=== PATIENT | female | born 1960 | race Caucasian/White ===

== ENCOUNTER → 2019-02-25 08:56 | Outpatient (BNVA) | payer MEDICARE, MEDICAID, SELFPAY | PROVIDERS: Family Provider Family Medicine; PCP Family Medicine; Visit Provider Psychiatry & Neurology Psychiatry | DX: F33.1 Major depressive disorder, recurrent, moderate (principal); F43.12 Post-traumatic stress disorder, chronic | CPT/HCPCS: 99204 ==

== ENCOUNTER → 2019-03-06 13:18 | Outpatient (BNVA) | payer MEDICARE, MEDICAID, SELFPAY | PROVIDERS: Family Provider Family Medicine; PCP Family Medicine; Visit Provider Anesthesiology | DX: M54.5 Low back pain (principal); Z79.891 Long term (current) use of opiate analgesic | CPT/HCPCS: 99213; 99214 ==

== ENCOUNTER → 2019-03-14 14:50 | Outpatient (BNVA) | payer MEDICARE, MEDICAID, SELFPAY | PROVIDERS: Family Provider Family Medicine; PCP Family Medicine; Visit Provider Social Worker Clinical | DX: F33.2 Major depressive disorder, recurrent severe without psychotic features (principal); F41.1 Generalized anxiety disorder | CPT/HCPCS: 90834 ==

== ENCOUNTER 2019-04-01 13:36 | Outpatient (CLI) | payer MEDICARE, MEDICAID, SELFPAY ==
--- NOTE | 2019-04-01 | US_ITS ---
WS: [id number] URINARY BLADDER ULTRASOUND HISTORY: URINARY HESITANCY COMPARISON: None available. Urinary bladder is well distended. No intraluminal filling defect. No free fluid adjacent to the urin lamont bladder. Prevoid volume: 80 cubic centimeters. Post void volume: None. US/US pelvic limited 68044 IMPRESSION: No post void residual.
== END 2019-04-01 13:37 | disposition home or self-care (01) ==
LOC: RADOUTREAD 13:40
PROVIDERS: Family Provider Family Medicine; PCP Family Medicine; Visit Provider Family Medicine
DX: F33.2 Major depressive disorder, recurrent severe without psychotic features; F41.1 Generalized anxiety disorder
CPT/HCPCS: 90834

== ENCOUNTER → 2019-04-08 16:00 | Outpatient (BNVA) | payer MEDICARE, MEDICAID, SELFPAY | PROVIDERS: Family Provider Family Medicine; PCP Family Medicine; Referring Provider Family Medicine; Visit Provider Obstetrics & Gynecology Female Pelvic Medicine and Reconstructive Surgery | DX: R35.0 Frequency of micturition (principal); N39.0 Urinary tract infection, site not specified; R39.9 Unspecified symptoms and signs involving the genitourinary system | CPT/HCPCS: 87086 ==

== ENCOUNTER → 2019-04-17 12:39 | Outpatient (BNVA) | payer MEDICARE, MEDICAID, SELFPAY | PROVIDERS: Family Provider Family Medicine; PCP Family Medicine; Visit Provider Nurse Practitioner | DX: M54.9 Dorsalgia, unspecified (principal); Z79.891 Long term (current) use of opiate analgesic | CPT/HCPCS: 99213 ==

== ENCOUNTER → 2019-04-24 14:49 | Outpatient (BNVA) | payer MEDICARE, MEDICAID, SELFPAY | PROVIDERS: Family Provider Family Medicine; PCP Family Medicine; Visit Provider Social Worker Clinical | DX: F43.12 Post-traumatic stress disorder, chronic (principal); F33.1 Major depressive disorder, recurrent, moderate | CPT/HCPCS: 90834 ==

== ENCOUNTER → 2019-05-28 10:34 | Outpatient (BNVA) | payer MEDICARE, MEDICAID, SELFPAY | PROVIDERS: Family Provider Family Medicine; PCP Family Medicine; Visit Provider Obstetrics & Gynecology Female Pelvic Medicine and Reconstructive Surgery | DX: N39.41 Urge incontinence (principal) | CPT/HCPCS: 81000 ==

== ENCOUNTER 2019-06-26 14:10 | Emergency (ER) | payer MEDICARE, MEDICAID, SELFPAY ==
[2019-06-26 14:16] VITALS: BMI 37.4
--- NOTE | 2019-06-26 14:26 | ECG_ITS ---
Measurements Intervals [place] Rate: 59 P: 51 CT: 176 QRS: -43 QRSD: 110 T: 39 QT: 412 QTc: 408 SINUS BRADYCARDIA LEFT AXIS DEVIATION [QRS AXIS < -30] LOW QRS VOLTAGE IN PRECORDIAL LEADS [QRS DEFLECTION < 1.0 mV IN CHEST LEADS] PATTERN CONSISTENT WITH PULMONARY DISEASE Compared to ECG 10/24/2017 13:34:30 Myocardial infarct finding no longer present Electronically Signed On 06-26-2019 15:44:07 CDT by Ashok Jiménez M.D. [email or web address]
--- NOTE | 2019-06-26 14:43 | ED_ITS ---
HPI - Seizure General: Chief Complaint: Seizure Stated Complaint: SEIZURE Time Seen by Provider: 06/26/19 14:15 History of Present Illness: HPI Narrative: Patient is a 58-year-old female presenting today with a seizure. She has a history of seizure disorder but does not think she has had a seizure in about a year. She takes Keppra 1500 mg twice a day and lamotrigine 75 mg twice a day. She has been on those doses for some time. Today she reported feeling lightheaded and having a bad taste in her mouth and laid down on the couch. She woke up to her daughter and EMS around her. Her grandson witnessed a seizure. EMS reports that she was postictal at the scene. On arrival to the ER she is back to normal. She reports that she feels worse after the seizure than she normally does. She has a headache that is worse than normal. She also has been having headaches over the past few days. She was started on a new medicine for her bladder a few weeks ago and said it is been causing her to have a very dry mouth. She also had some stomach cramping earlier today but thinks that was related to her bladder issues. MD complaint: seizure Onset (ago): unknown (Just prior to arrival) Description of Episode: tonic-clonic movement, bladder incontinence and post- event confusion Witnessed: Yes - by Other (Grandson) Trauma: No Seizure History: Yes Place: Home Possible Precipitating Event: none and medication (History of a new medication) Associated symptoms: Reports other (Headache, itching); Deny chest pain, chills, fever(s) or malaise Review of Systems General: Reports: 10 or more systems reviewed and unremarkable except in HPI and below Const: Denies: fever(s), chills, fatigue or malaise Eyes: Denies: change in vision ENMT: Reports: dry mouth; Denies: odynophagia Card: Denies: chest pain or swelling of feet/ankles Resp: Denies: dyspnea, productive cough or non-productive cough GI: Denies: abdominal pain, nausea or vomiting : Reports: urinary frequency and urinary urgency; Denies: flank pain or difficulty voiding Musc: Denies: neck pain or back pain Skin/Breast: Denies: rash Neuro: Reports: headache(s) and seizure-like activity; Denies: numbness in extremities or weakness in extremities Saurabh/Lymph: Denies: easy bruising or easy bleeding PENDING SALE TO [facility] ED PFSH: Medical History (Updated 06/26/19 @ 17:24 by Luciana Magaña MD) Anemia Back Pain Congestive heart failure Cystitis Treat with Augmentin 875 mg twice daily for 10 days she did have a previous E. coli UTI which was treated with Bactrim unfortunately organism was resistant to Bactrim. Discussed with patient first and is to return make sure bladder is clear of infection may then need to consider urodynamics and cystoscopy to further evaluate her bladder. Meantime she will maintain a bladder diary and document her frequency urgency to be interesting to see if it is better with treatment of her cystitis. Dyslipidemia Encounter for long-term use of opiate analgesic FH: cholecystectomy Laceration of both fallopian tubes Morbid obesity Nonischemic cardiomyopathy Opioid contract exists Seizures Sleep apnea Surgical History History of colon resection Status post partial hysterectomy GUY with USO Dr. Husain 2003 Status post small bowel resection Family History Mother Cancer Colon cancer Grandmother Cancer Breast Other CAD (coronary artery disease) Diabetes Social History Smoking and tobacco status: never smoked Second hand smoke exposure: Yes Smoking risk assessment/counseling performed?: No Alcohol intake: current Alcohol intake frequency: holidays/special occasions only History of recent travel: No Physical Exam Const: COMMON NORMALS: no acute distress, patient oriented x3, no limitations and alert GENERAL APPEARANCE: cooperative and comfortable NUTRITIONAL APPEARANCE: obese HENMT: HEAD & SCALP: normal to inspection FACE & SINUS: normal facial exam Eye: GENERAL EYE: appearance normal, both eyes and all related structures Neck/C-Spine: COMMON NORMALS: supple, no meningeal signs and no JVD Chest: COMMONS NORMALS: normal inspection of the chest Resp: COMMON NORMALS: normal respiratory effort, No use of accessory muscles and clear to auscultation bilaterally AUSCULTATION: clear to auscultation bilaterally Cardio: COMMON NORMALS: no JVD, regular rate, regular rhythm and No murmurs present (Cardio) RATE: regular rate RHYTHM: regular rhythm GI: COMMON NORMALS: Normal to inspection, nondistended, normoactive bowel sounds present, Soft to palpation and non-tender INSPECTION: Yes normal to inspection AUSCULTATION: Yes normoactive bowel sounds PALPATION: Yes Soft to palpation Back/Pelvis: COMMON NORMALS: thoracic and lumbar spine normal to inspection Extremity: COMMON NORMALS: normal to inspection Neuro: COMMON NORMALS: patient oriented x3, moves all extremities, no focal motor deficits and no sensory deficits noted SENSORIUM/ORIENTATION: Yes alert MENINGEAL SIGNS: Yes no meningeal signs Psych: COMMON NORMALS: mental status grossly normal, cooperative and normal affect Skin: COMMON NORMALS: no rashes or lesions noted and turgor normal GENERAL SKIN EXAM: no rashes or lesions noted and turgor normal Course ED course: Patient presents with a seizure. She has a history of seizures and has been stable on her current medications for some time. She says she is compliant. She said she felt a little worse after the seizure but otherwise there was nothing atypical about the episode. She was recently started on fe soterodine, for bladder issues and as far as I can tell this is not a usual concern for seizures or interaction with seizure medications. I did suggest however that she make sure her neurologist knows that she was started on this - just because of the temporal relation to when it was started. When she was feeling better and her work-up was benign she was discharged home with family. She will call her neurologist in the morning to discuss today's episode. Vital Signs: Vital signs: Vital Signs Pulse Rate 60 06/26/19 17:26 Respiratory Rate 18 06/26/19 17:26 Blood Pressure 103/56 06/26/19 17:26 Pulse Oximetry 96 06/26/19 17:26 MDM - Seizure Lab Data: Labs: Lab Results 06/26/19 06/26/19 06/26/19 Range/Units 14:45 14:45 15:04 WBC 6.1 (4.0-10.0) 10^3/ uL RBC 4.59 (4.1-5.3) 10^6/u L Hgb 13.3 (11.5-15.3) g/dL Hct 43.2 (37.0-47.0) % MCV 94.1 (81-99) fL MCH 29.0 (28.0-34.0) pg MCHC 30.8 (30.0-36.0) g/dL RDW 13.0 (12.1-15.1) % Plt Count 277 (130-400) 10^3/c mm MPV 9.5 (7.4-10.4) fL Neut % (Auto) 66.3 % Lymph % (Auto) 22.7 % Sac % (Auto) 8.4 % Eos % (Auto) 2.0 % Baso % (Auto) 0.3 % Neut # (Auto) 4.0 (1.8-7.7) 10^3/u L Lymph # (Auto) 1.4 (0.8-4.8) 10^3/u L Sac # (Auto) 0.5 (0.2-0.9) 10^3/u L Eos # (Auto) 0.1 (0.0-0.8) 10^3/u L Baso # (Auto) 0.0 (0.0-0.1) 10^3/u L Nucleated RBC % (a uto) 0 % Nucleated RBCs # 0.0 /100WBC Sodium 138 (136-145) mmol/L Potassium 4.0 (3.5-5.1) mmol/L Chloride 102 (98-107) mmol/L Carbon Dioxide 25 (22-29) mmol/L Anion Gap 15.0 (5-19) BUN 12 (6-20) mg/dL Creatinine 0.7 (0.5-0.9) mg/dL GFR Calculation 86.2 L (90-130) mL/min Glucose 102 (65-115) mg/dL Calculated Osmolal ity 282 L (285-295) mOsm/k g Calcium 8.8 (8.5-10.5) mg/dL Total Bilirubin 0.3 (0.15-1.2) mg/dL AST 17 (0-32) U/L ALT < 5 (0-33) U/L Alkaline Phosphata se 132 H (35-105) IU/L Total Protein 7.2 (6.6-8.7) g/dL Albumin 4.5 (3.5-5.2) g/dL Globulin 2.7 (1.3-4.6) g/dL Urine Color Yellow (Yellow) Urine Appearance Clear (CLEAR) Urine pH 5 (5-7) Ur Specific Gravit y 1.015 (1.005-1.030) Urine Protein Neg (Negative) Urine Glucose (UA) Norm (Normal) Urine Ketones Negative (Negative) Urine Blood Neg (Negative) Urine Nitrate Negative (Negative) Urine Bilirubin Neg (NEGATIVE) Urine Urobilinogen Norm (Negative) mg/dL Ur Leukocyte Gemma ase Negative (Negative) EKG Data^: EKG 1: EKG interpretation date: 06/26/19 EKG interpretation time: 15:00 Interpretation: Sinus bradycardia, rate 59, LAD. Wide QRS, 110. Normal QTc. Discharge Plan Discharge Patient Disposition: Home, Self-Care Clinical Impression: Generalized seizure Condition: Stable Prescriptions: No Action tizanidine 4 mg tablet 4 mg PO TID PRN (Reason: muscle spasticity) Qty: 90 RF: 1 gabapentin 800 mg tablet 800 mg PO QID 30 Days Qty: 120 RF: 1 hydrocodone-acetaminophen 5-325 mg tablet 1 tab PO Q6H PRN (Reason: Pain) RF: 0 Toviaz 8 mg tablet extended release 24 hr 8 mg PO DAILY Qty: 30 RF: 3 ondansetron HCl 4 mg tablet 4 mg PO Q8H RF: 0 levetiracetam 750 mg tablet 1,500 mg PO BID RF: 0 lamotrigine 25 mg tablet 75 mg PO BID RF: 0 levothyroxine 100 mcg capsule 100 mcg PO QDAY RF: 0 loperamide 2 mg capsule 2 mg PO Q4H PRN (Reason: loose stool) RF: 0 (DME) ducosate sodium tablet Qty: 1 RF: 0 oxymetazoline 0.05 % mist 1 spray INTRANASAL QID PRN (Reason: UNKNOWN) RF: 0 aspirin [Vicki Chewable Aspirin] 81 mg tablet,chewable 81 mg PO BID RF: 0 carvedilol 12.5 mg tablet 12.5 mg PO BID 90 Days Qty: 180 RF: 3 spironolactone 25 mg tablet 25 mg PO DAILY RF: 0 omeprazole 20 mg capsule,delayed release(DR/EC) 20 mg PO DAILY RF: 0 lisinopril 5 mg tablet 5 mg PO DAILY RF: 0 Benadryl 25 mg Capsule 25 mg PO Q6H PRN (Reason: Itching) RF: 0 Discharge Orders: Discharge Order (Routine); Ordered 06/26/19 Ordered By: Luciana Magaña Referrals: Patrice Juan MD [Primary Care Provider] - Discharge Diet: Usual diet Discharge Activity: Resume usual activity Patient Instructions: Recurrent Seizures Adult (ED) Activity Restrictions/Additional Instructions: Contact Dr. Ellison and let him know that you had a seizure today. Return to the ED if you have another seizure within the next week, or if any other new or concerning symptoms. Continue your regular medications. Discharge Date/Time: 06/26/19 17:37 Coding Level of Care Code ED Photogrammetric Technician for Chg Fwd Exam Comprehensive
[2019-06-26 14:51] LABS: Basophils % 0.3 %; Eosinophils # 0.1 10^3/uL (0.0-0.8); Hematocrit 43.2 % (37.0-47.0); Hemoglobin 13.3 g/dL (11.5-15.3); Lymphocytes # 1.4 10^3/uL (0.8-4.8); Lymphocytes % 22.7 %; Mean Corpuscular HGB Conc 30.8 g/dL (30.0-36.0); Mean Corpuscular Volume 94.1 fL (81-99); Mean Platelet Volume 9.5 fL (7.4-10.4); Monocytes # 0.5 10^3/uL (0.2-0.9); Monocytes % 8.4 %; Neutrophils % 66.3 %; Nucleated Red Blood Cells % 0 %; Platelet Count 277 10^3/cmm (130-400); Red Blood Count 4.59 10^6/uL (4.1-5.3); White Blood Count 6.1 10^3/uL (4.0-10.0)
[2019-06-26 15:05] LABS: Alanine Aminotransferase < 5 U/L (0-33); Albumin Level 4.5 g/dL (3.5-5.2); Alkaline Phosphatase 132 IU/L (35-105); Aspartate Amino Transferase 17 U/L (0-32); Blood Urea Nitrogen 12 mg/dL (6-20); Calcium 8.8 mg/dL (8.5-10.5); Carbon Dioxide 25 mmol/L (22-29); Chloride 102 mmol/L (98-107); Globulin 2.7 g/dL (1.3-4.6); Glomerular Filtration Rate 86.2 mL/min (90-130); Glucose 102 mg/dL (65-115); Osmolality Calculated 282 mOsm/kg (285-295); Sodium 138 mmol/L (136-145); Total Bilirubin 0.3 mg/dL (0.15-1.2); Total Protein 7.2 g/dL (6.6-8.7)
[2019-06-26 15:22] LABS: Add Urine Microscopic? NO
[2019-06-26 15:28] LABS: Bilirubin Urine Neg (NEGATIVE); Blood Urine Neg (Negative); Glucose Urine UA Norm (Normal); Ketones Urine Negative (Negative); Leukocyte Esterase Urine Negative (Negative); Nitrate Urine Negative (Negative); Protein Urine Neg (Negative); Specific Gravity, Urine 1.015 (1.005-1.030); Urine Appearance Clear (CLEAR); Urine Color Yellow (Yellow); Urobilinogen Urine Norm (Negative); pH Urine 5 (5-7)
[2019-06-26] MEDS: ondansetron 2 mg/ML SDV 2 mL 4 MG IVP (15:36)
[2019-06-26 17:26] VITALS: BP 103/56; PULSE 60; RESP 18; O2SAT 96
== END 2019-06-26 17:37 | disposition home or self-care (01) ==
PROVIDERS: Emergency Provider Emergency Medicine; Family Provider Family Medicine; PCP Family Medicine
DX: G40.89 Other seizures (principal); I50.9 Heart failure, unspecified; E78.5 Hyperlipidemia, unspecified
CPT/HCPCS: 12345; 36415; 80053; 81003; 85025; 93005; 96374; 96375; 99284; A9270; J2405

== ENCOUNTER 2019-07-02 14:57 | Outpatient (RCR) | payer MEDICARE, MEDICAID, SELFPAY | END 2019-07-07 23:59 | disposition home or self-care (01) | LOC: SPT 14:57 | PROVIDERS: PCP Family Medicine; Visit Provider Obstetrics & Gynecology Female Pelvic Medicine and Reconstructive Surgery | DX: N39.46 Mixed incontinence (principal); K59.00 Constipation, unspecified | CPT/HCPCS: 97110; 97161; 97530 ==

== ENCOUNTER 2019-07-08 06:00 | Outpatient (RCR) | payer MEDICARE, MEDICAID, SELFPAY | END 2019-08-06 23:59 | disposition home or self-care (01) | LOC: SPT 06:00 | PROVIDERS: PCP Family Medicine; Visit Provider Obstetrics & Gynecology Female Pelvic Medicine and Reconstructive Surgery | DX: N39.41 Urge incontinence (principal) | CPT/HCPCS: 97110; 97112; 97140; 97530 ==

== ENCOUNTER 2019-08-07 06:00 | Outpatient (RCR) | payer MEDICARE, MEDICAID, SELFPAY | END 2019-09-06 23:59 | disposition home or self-care (01) | LOC: SPT 06:00 | PROVIDERS: PCP Family Medicine; Visit Provider Obstetrics & Gynecology Female Pelvic Medicine and Reconstructive Surgery | DX: N39.41 Urge incontinence (principal) | CPT/HCPCS: 97110; 97140; 97530 ==

== ENCOUNTER → 2019-08-22 13:40 | Outpatient (BNVA) | payer MEDICARE, MEDICAID, SELFPAY | PROVIDERS: PCP Family Medicine; Visit Provider Anesthesiology | DX: M54.41 Lumbago with sciatica, right side (principal); M54.42 Lumbago with sciatica, left side; M54.9 Dorsalgia, unspecified; Z79.891 Long term (current) use of opiate analgesic | CPT/HCPCS: 99213; 99214 ==

== ENCOUNTER 2019-09-07 06:00 | Outpatient (RCR) | payer MEDICARE, MEDICAID, SELFPAY | END 2019-10-07 23:59 | disposition home or self-care (01) | LOC: SPT 06:00 | PROVIDERS: PCP Family Medicine; Visit Provider Obstetrics & Gynecology Female Pelvic Medicine and Reconstructive Surgery | DX: N39.41 Urge incontinence (principal) | CPT/HCPCS: 97110; 97530 ==

== ENCOUNTER 2019-10-11 14:14 | Outpatient (CLI) | payer MEDICARE, MEDICAID, SELFPAY ==
--- NOTE | 2019-10-11 14:21 | USCV_ITS ---
Peggy Tejada Age: 58 Gender: F : 1960 Exam Date: 10/11/2019 14:31 Ordering Phys: Jeronimo oMreira M.D ([email or web address]) Technologist: Romelia Cote Exam Location: [facility] [place] [facility] [place] Indication: CHF BP: 107 / 65 HR: 67 Rhythm: Sinus Technical Quality: Adequate MEASUREMENTS (Male / Female) Normal Values 2D ECHO LV Diastolic Diameter PLAX 5.0 cm 4.2 - 5.9 / 3.9 - 5.3 cm LV Systolic Diameter PLAX 4.1 cm LV Chamber Size 3.6 cm IVS Diastolic Thickness 0.8 cm 0.6 - 1.0 / 0.6 - 0.9 cm IVS Systolic Thickness 1.3 cm LVPW Diastolic Thickness 1.5 cm 0.6 - 1.0 / 0.6 - 0.9 cm LVPW Systolic Thickness 1.6 cm RV Chamber Size 2.9 cm LVOT Diameter 2.1 cm LV Ejection Fraction 2D Teich 35.0 % LV Ejection Fraction MOD 2C 67.4 % LV Ejection Fraction 2C AL 68.7 % LA Diameter 4.0 cm LA Width 3.3 cm LA Height 4.4 cm RA Width 2.7 cm RA Height 4.0 cm Aorta at Sinotubular Diameter 3.0 cm M-MODE LV Diastolic Diameter MM 6.7 cm 4.2 - 5.9 / 3.9 - 5.3 cm LV Systolic Diameter MM 5.1 cm LV Ejection Fraction MM Teich 45.9 % IVS Diastolic Thickness MM 0.9 cm 0.6 - 1.0 / 0.6 - 0.9 cm IVS Systolic Thickness MM 0.9 cm LVPW Diastolic Thickness MM 0.7 cm 0.6 - 1.0 / 0.6 - 0.9 cm LVPW Systolic Thickness MM 1.3 cm Aortic Annulus Diameter 3.1 cm LA Ao Ratio MM 1.3 MV E Point Septal Separation 0.8 cm DOPPLER AV Peak Velocity 131.0 cm/s LVOT Peak Velocity 98.0 cm/s AV Area Cont Eq vti 3.1 cm squared AV Area Cont Eq pk 2.6 cm squared MV Area PHT 2.7 cm squared Mitral E to A Ratio 0.6 MV E' Velocity 10.0 cm/s Mitral E to MV E' Ratio 5.7 Mitral E to LV E' Lateral Ratio 5.5 Mitral E to LV E' Septal Ratio 6.0 TR Peak Velocity 282.0 cm/s TR Peak Gradient 31.9 mmHg TV Peak E Velocity 70.0 cm/s Right Atrial Pressure 3.0 mmHg Pulmonary Artery Systolic Pressu 34.8 mmHg PV Peak Velocity 64.0 cm/s RV Acceleration Time 0.1 s RV Ejection Time 0.3 s RV AcT/ET 0.4 FINDINGS Left Ventricle Normal left ventricular size and wall thickness. LV systolic function is mildly reduced and EF is 45 to 50%. Mild global hypokinesis. Normal left ventricular wall thickness. Diastolic filling is consistent with grade 3 diastolic dysfunction. Right Ventricle The right ventricle is normal in size and function. Right Atrium The right atrium is normal in size. Left Atrium The left atrium is normal in size. Mitral Valve Structurally normal mitral valve without significant stenosis or prolapse. There is mild mitral regurgitation. Aortic Valve Structurally normal aortic valve without significant sclerosis or stenosis. There is no aortic regurgitation. Tricuspid Valve Structurally normal tricuspid valve without significant stenosis or regurgitation. Insufficient TR jet to calculate RVSP. Systolic pressure is normal. Pulmonic Valve Structurally normal pulmonic valve without significant stenosis. There is no pulmonic regurgitation. Pericardium Normal pericardium without effusion. Aorta Normal ascending aorta dimension. CONCLUSIONS LV systolic function is mildly reduced with EF of 45 to 50%. Diastolic filling is consistent with grade 3 diastolic dysfunction. Compared with echo done on 10/01/2018, diastolic dysfunction has progressed to grade 3. Jeronimo Moreira MD (Electronically Signed) Final Date: 18 October 2019 13:53 S
== END 2019-10-11 14:15 | disposition home or self-care (01) ==
LOC: RAD 14:18
PROVIDERS: PCP Family Medicine; Visit Provider Internal Medicine
DX: I50.9 Heart failure, unspecified (principal)
CPT/HCPCS: 93306

== ENCOUNTER 2019-10-14 14:16 | Emergency (ER) | payer MEDICARE, MEDICAID, SELFPAY ==
[2019-10-14 14:24] VITALS: BP 94/62; PULSE 78; RESP 18; TEMP 36.8; O2SAT 94; BMI 35.2
--- NOTE | 2019-10-14 15:38 | ED_ITS ---
HPI - GI Bleed General: Chief complaint: GI Bleed Stated complaint: cant hold anything down/ abd cramps/ diharea Time Seen by Provider: 10/14/19 15:23 Source: patient Mode of arrival: ambulatory Limitations: no limitations History of Present Illness: HPI Narrative: Has been feeling unwell for about a week with malaise, upper abdominal pain, nausea, vomiting. She is also having diarrhea and her stools are described as black and tarry. She has a history of GERD, hypothyroidism, hypertension, chronic back pain. Symptoms have progressively worsened and she is unable to keep anything down for the last 3 days or so according to her. She denies any fever or sick contacts. MD complaint: melena Onset (ago): week(s) (1) Pain Consistency: intermittent Severity: moderate Relieving factors: none Exacerbating factors: none Context: history of GI bleed Associated symptoms: Reports abdominal pain, malaise, nausea and vomiting; Denies chills, easy bruising, epistaxis, fever(s), headache(s), other bleeding, poor appetite, rash, syncope or weakness Treatments Prior to Arrival: none Review of Systems General: Reports: 10 or more systems reviewed and unremarkable except in HPI and below Const: Reports: malaise; Denies: fever(s) or chills Eyes: Denies: change in vision or blurry vision ENMT: Denies: epistaxis Card: Denies: syncope Resp: Denies: dyspnea, productive cough or non-productive cough GI: Reports: abdominal pain, nausea and vomiting : Denies: flank pain, difficulty voiding, dysuria, urinary frequency, urinary urgency or urinary hesitancy Musc: Denies: neck pain, back pain or extremity swelling Skin/Breast: Denies: rash Neuro: Denies: headache(s) Endo: Denies: polyuria, polydipsia or tired all the time Saurabh/Lymph: Denies: easy bruising PFSH ED PFSH: Medical History Anemia Back Pain Congestive heart failure Cystitis Treat with Augmentin 875 mg twice daily for 10 days she did have a previous E. coli UTI which was treated with Bactrim unfortunately organism was resistant to Bactrim. Discussed with patient first and is to return make sure bladder is clear of infection may then need to consider urodynamics and cystoscopy to further evaluate her bladder. Meantime she will maintain a bladder diary and document her frequency urgency to be interesting to see if it is better with treatment of her cystitis. Dyslipidemia Encounter for long-term use of opiate analgesic FH: cholecystectomy Laceration of both fallopian tubes Morbid obesity Nonischemic cardiomyopathy Opioid contract exists Seizures Sleep apnea Surgical History History of colon resection Status post partial hysterectomy GUY with USO Dr. Husain 2003 Status post small bowel resection Family History Mother Cancer Colon cancer Grandmother Cancer Breast Other CAD (coronary artery disease) Diabetes Social History Smoking and tobacco status: never smoked Second hand smoke exposure: Yes Smoking risk assessment/counseling performed?: No Alcohol intake: current Alcohol intake frequency: holidays/special occasions only History of recent travel: No Physical Exam Const: COMMON NORMALS: no acute distress, average body habitus, patient oriented x3, no limitations, healthy appearing, alert and well nourished HENMT: COMMON NORMALS: normocephalic, atraumatic and moist oral mucous membranes HEAD & SCALP: normocephalic and atraumatic Neck/C-Spine: COMMON NORMALS: no meningeal signs and no JVD Resp: COMMON NORMALS: normal respiratory effort, No retractions, No use of accessory muscles, clear to auscultation bilaterally and percussion normal AUSCULTATION: clear to auscultation bilaterally PERCUSSION: percussion normal Cardio: COMMON NORMALS: no JVD, regular rate, regular rhythm, S1 normal heart sound present, S2 normal heart sound present, No gallops present (Cardio), No clicks present (Cardio), No murmurs present (Cardio), No rub (Cardio) and Peripheral pulses 2+ throughout RATE: regular rate RHYTHM: regular rhythm HEART SOUNDS: S1 normal heart sound present and S2 normal heart sound present PERIPHERAL PULSES: Peripheral pulses 2+ throughout GI: COMMON NORMALS: Normal to inspection, nondistended, normoactive bowel sounds present, Soft to palpation, No hepatosplenomegaly present, no masses and no bruits PALPATION: Yes Soft to palpation, Yes Tenderness to palpation present (GI) (epigastric) and Yes No hepatosplenomegaly present Extremity: COMMON NORMALS: normal to inspection, full ROM, capillary refill normal, no calf tenderness and no pedal edema Neuro: COMMON NORMALS: patient oriented x3 SENSORIUM/ORIENTATION: Yes alert MENINGEAL SIGNS: Yes no meningeal signs Skin: COMMON NORMALS: no rashes or lesions noted, no wounds, turgor normal, no jaundice, no petechiae and no mottling GENERAL SKIN EXAM: no rashes or lesions noted and turgor normal Course Reevaluation(s): Reevaluation #1: Discussed her lab and imaging findings with her. Hemoglobin normal, other labs unremarkable. Patient has been having significant GI bleed for several days I expect her hemoglobin to be low. BUN normal. We will discharge her home but she is advised she needs a repeat colonoscopy for further evaluation. She voiced understanding and is in agreement with the plan. Time: 18:59 Vital Signs: Vital signs: Vital Signs Temperature 98.2 F 10/14/19 14:24 Pulse Rate 96 10/14/19 19:24 Respiratory Rate 18 10/14/19 19:24 Blood Pressure 112/54 10/14/19 19:24 Pulse Oximetry 95 10/14/19 19:24 MDM - GI Bleed MDM Narrative: Medical decision making narrative: 58-year-old female patient complains of having melena stools for several days. Evaluation in the emergency department was unremarkable including a normal hemoglobin. No signs of an acute or life-threatening condition on evaluation and she is discharged home to follow-up with her primary care provider to set her up for a colonoscopy. She has had a bowel resection in the past for a gastric precancerous polyp. She does have a family history of colon cancer. Medical Records: Attestation: I reviewed the patient's medical records. Lab Data: Attestation: I reviewed the patient's lab results. Labs: Lab Results 10/14/19 10/14/19 10/14/19 Range/Units 15:40 15:40 15:40 WBC 8.7 (4.0-10.0) 10^3/ uL RBC 4.58 (4.1-5.3) 10^6/u L Hgb 13.9 (11.5-15.3) g/dL Hct 44.0 (37.0-47.0) % MCV 96.1 (81-99) fL MCH 30.3 (28.0-34.0) pg MCHC 31.6 (30.0-36.0) g/dL RDW 13.4 (12.1-15.1) % Plt Count 260 (130-400) 10^3/c mm MPV 9.7 (7.4-10.4) fL Neut % (Auto) 88.1 % Lymph % (Auto) 6.4 % Pierce % (Auto) 5.0 % Eos % (Auto) 0.0 % Baso % (Auto) 0.2 % Neut # (Auto) 7.68 (1.8-7.7) 10^3/u L Lymph # (Auto) 0.6 L (0.8-4.8) 10^3/u L Pierce # (Auto) 0.4 (0.2-0.9) 10^3/u L Eos # (Auto) 0.0 (0.0-0.8) 10^3/u L Baso # (Auto) 0.0 (0.0-0.1) 10^3/u L Nucleated RBC % (a uto) 0 % Nucleated RBCs # 0.0 /100WBC PT 13.30 (12.1-14.9) SECO NDS INR 0.98 (0.8-1.2) APTT 27.5 (23.9-36.7) SECO NDS Sodium 134 L (136-145) mmol/L Potassium 3.9 (3.5-5.1) mmol/L Chloride 97 L (98-107) mmol/L Carbon Dioxide 24 (22-29) mmol/L Anion Gap 16.9 (5-19) BUN 17 (6-20) mg/dL Creatinine 0.9 (0.5-0.9) mg/dL GFR Calculation 64.5 L (90-130) mL/min Glucose 100 (65-115) mg/dL Calculated Osmolal ity 274 L (285-295) mOsm/k g Calcium 9.0 (8.5-10.5) mg/dL Total Bilirubin 0.6 (0.15-1.2) mg/dL AST 15 (0-32) U/L ALT 11 (0-33) U/L Alkaline Phosphata se 114 H (35-105) IU/L Total Protein 8.0 (6.6-8.7) g/dL Albumin 4.6 (3.5-5.2) g/dL Globulin 3.4 (1.3-4.6) g/dL Lipase 31 (13-60) U/L Urine Color (Yellow) Urine Appearance (CLEAR) Urine pH (5-7) Ur Specific Gravit y (1.005-1.030) Urine Protein (Negative) Urine Glucose (UA) (Normal) Urine Ketones (Negative) Urine Blood (Negative) Urine Nitrate (Negative) Urine Bilirubin (NEGATIVE) Urine Urobilinogen (Negative) mg/dL Ur Leukocyte Gemma ase (Negative) Urine RBC (0-2) /hpf Urine WBC (0-5) /hpf Ur Squamous Epith Cells (0-5) Amorphous Sediment Urine Bacteria (NONE) Hyaline Casts Urine Mucus Blood Type Rho(D) Type Antibody Screen 10/14/19 10/14/19 Range/Units 15:40 15:50 WBC (4.0-10.0) 10^3/ uL RBC (4.1-5.3) 10^6/u L Hgb (11.5-15.3) g/dL Hct (37.0-47.0) % MCV (81-99) fL MCH (28.0-34.0) pg MCHC (30.0-36.0) g/dL RDW (12.1-15.1) % Plt Count (130-400) 10^3/c mm MPV (7.4-10.4) fL Neut % (Auto) % Lymph % (Auto) % Pierce % (Auto) % Eos % (Auto) % Baso % (Auto) % Neut # (Auto) (1.8-7.7) 10^3/u L Lymph # (Auto) (0.8-4.8) 10^3/u L Pierce # (Auto) (0.2-0.9) 10^3/u L Eos # (Auto) (0.0-0.8) 10^3/u L Baso # (Auto) (0.0-0.1) 10^3/u L Nucleated RBC % (a uto) % Nucleated RBCs # /100WBC PT (12.1-14.9) SECO NDS INR (0.8-1.2) APTT (23.9-36.7) SECO NDS Sodium (136-145) mmol/L Potassium (3.5-5.1) mmol/L Chloride (98-107) mmol/L Carbon Dioxide (22-29) mmol/L Anion Gap (5-19) BUN (6-20) mg/dL Creatinine (0.5-0.9) mg/dL GFR Calculation (90-130) mL/min Glucose (65-115) mg/dL Calculated Osmolal ity (285-295) mOsm/k g Calcium (8.5-10.5) mg/dL Total Bilirubin (0.15-1.2) mg/dL AST (0-32) U/L ALT (0-33) U/L Alkaline Phosphata se (35-105) IU/L Total Protein (6.6-8.7) g/dL Albumin (3.5-5.2) g/dL Globulin (1.3-4.6) g/dL Lipase (13-60) U/L Urine Color Dark yellow (Yellow) Urine Appearance Sl hazy (CLEAR) Urine pH 5 (5-7) Ur Specific Gravit y 1.025 (1.005-1.030) Urine Protein Trace (Negative) Urine Glucose (UA) Norm (Normal) Urine Ketones 1+ H (Negative) Urine Blood Neg (Negative) Urine Nitrate Negative (Negative) Urine Bilirubin 1+ H (NEGATIVE) Urine Urobilinogen 1 H (Negative) mg/dL Ur Leukocyte Gemma ase Trace H (Negative) Urine RBC 0-4 H (0-2) /hpf Urine WBC 5-10 H (0-5) /hpf Ur Squamous Epith Cells 5-10 H (0-5) Amorphous Sediment Not Reportable Urine Bacteria 2+ H (NONE) Hyaline Casts 0-4 H Urine Mucus 3+ Blood Type O Positive Rho(D) Type Positive Antibody Screen Negative Discharge Plan Discharge Patient Disposition: Home Clinical Impression: Gastroenteritis Condition: Stable Prescriptions: Continued nitroglycerin 0.4 mg tablet, sublingual 0.4 mg SUBLINGUAL Q5M PRN (Reason: Chest Pain) RF: 0 ondansetron HCl 4 mg tablet 4 mg PO PRN RF: 0 levetiracetam 750 mg tablet 1,500 mg PO BID RF: 0 levothyroxine 100 mcg capsule See Rx Instructions .ROUTE .COMPLEX RF: 0 lamotrigine 25 mg tablet 100 mg PO BID RF: 0 aspirin [Vicki Chewable Aspirin] 81 mg tablet,chewable 81 mg PO BID RF: 0 tizanidine 4 mg tablet 4 mg PO TID PRN (Reason: muscle spasticity) Qty: 90 RF: 1 hydrocodone-acetaminophen 5-325 mg tablet 1 tab PO Q6H PRN (Reason: Pain) 30 Days Qty: 120 RF: 0 carvedilol 12.5 mg tablet 12.5 mg PO BID 90 Days Qty: 180 RF: 3 gabapentin 800 mg tablet 800 mg PO QID 30 Days Qty: 120 RF: 0 spironolactone 25 mg tablet 25 mg PO DAILY RF: 0 omeprazole 20 mg capsule,delayed release(DR/EC) 40 mg PO DAILY RF: 0 lisinopril 5 mg tablet 5 mg PO DAILY RF: 0 diphenhydramine HCl [Benadryl] 25 mg Capsule 25 mg PO PRN RF: 0 levothyroxine 88 mcg tablet See Rx Instructions .ROUTE .COMPLEX RF: 0 Discharge Orders: Discharge Order (Routine); Ordered 10/14/19 Ordered By: Harriet Culver Referrals: Patrice Juan MD [Primary Care Provider] - 1-3 days Discharge Diet: Usual diet Discharge Activity: Increase activity as tolerated Patient Instructions: Gastroenteritis (ED) Activity Restrictions/Additional Instructions: Return for any new or worsening symptoms. Follow-up with your primary care provider within 3 days. You will need a colonoscopy soon so follow-up with your primary care provider to have you scheduled for one. Discharge Date/Time: 10/14/19 19:25 Coding Level of Care Code ED Program Manager Slp for Chg Fwd Exam Comprehensive
[2019-10-14 15:49] LABS: Basophils % 0.2 %; Hemoglobin 13.9 g/dL (11.5-15.3); Lymphocytes # 0.6 10^3/uL (0.8-4.8); Lymphocytes % 6.4 %; Mean Corpuscular HGB Conc 31.6 g/dL (30.0-36.0); Mean Corpuscular Hemoglobin 30.3 pg (28.0-34.0); Mean Corpuscular Volume 96.1 fL (81-99); Mean Platelet Volume 9.7 fL (7.4-10.4); Monocytes # 0.4 10^3/uL (0.2-0.9); Neutrophils # 7.68 10^3/uL (1.8-7.7); Neutrophils % 88.1 %; Nucleated Red Blood Cells % 0 %; Platelet Count 260 10^3/cmm (130-400); Red Blood Count 4.58 10^6/uL (4.1-5.3); Red Cell Distribution Width 13.4 % (12.1-15.1); White Blood Count 8.7 10^3/uL (4.0-10.0)
[2019-10-14 16:05] LABS: INR 0.98 (0.8-1.2)
[2019-10-14 16:07] LABS: Blood Urine Neg (Negative); Glucose Urine UA Norm (Normal); Ketones Urine 1+ (Negative); Protein Urine Trace (Negative); Specific Gravity, Urine 1.025 (1.005-1.030); Urine Appearance SL Hazy (CLEAR); Urine Color Dark Yellow (Yellow); pH Urine 5 (5-7)
[2019-10-14 16:07] LABS: Partial Thromboplastin Time 27.5 SECONDS (23.9-36.7)
[2019-10-14 16:08] LABS: Add Urine Microscopic? YES; Bilirubin Urine 1+ (NEGATIVE); Leukocyte Esterase Urine Trace (Negative); Nitrate Urine Negative (Negative); Urobilinogen Urine 1 mg/dL (Negative)
[2019-10-14 16:09] LABS: Bacteria Urine 2+; Mucus Urine 3+; RBC Urine 0-4 /hpf (0-2)
[2019-10-14 16:10] LABS: Add Urine Culture? No; Hyaline Casts Urine 0-4
[2019-10-14 16:12] LABS: Alanine Aminotransferase 11 U/L (0-33); Albumin Level 4.6 g/dL (3.5-5.2); Alkaline Phosphatase 114 IU/L (35-105); Anion Gap 16.9 (5-19); Aspartate Amino Transferase 15 U/L (0-32); Blood Urea Nitrogen 17 mg/dL (6-20); Carbon Dioxide 24 mmol/L (22-29); Chloride 97 mmol/L (98-107); Globulin 3.4 g/dL (1.3-4.6); Glomerular Filtration Rate 64.5 mL/min (90-130); Glucose 100 mg/dL (65-115); Lipase 31 U/L (13-60); Osmolality Calculated 274 mOsm/kg (285-295); Potassium 3.9 mmol/L (3.5-5.1); Sodium 134 mmol/L (136-145); Total Bilirubin 0.6 mg/dL (0.15-1.2)
[2019-10-14] MEDS: ondansetron 2 mg/ML SDV 2 mL 4 MG IVP (16:27)
[2019-10-14] MEDS: pantoprazole 40 mg SDV 80 MG IVP (16:27)
[2019-10-14] MEDS: lidocaine 2% viscous 15 ML, aluminum-mag hydrox-simethicon 30 ML, sucralfate oral liq 1 GM PO (17:32)
[2019-10-14] MEDS: sodium chloride 0.9% 1,000 ML 999 ML IV (17:34)
[2019-10-14 17:36] VITALS: BP 108/61; RESP 18
--- NOTE | 2019-10-14 18:00 | CTR_ITS ---
PROCEDURE INFORMATION: Exam: CT Abdomen And Pelvis Without Contrast Exam date and time: 10/14/2019 6:03 PM Age: 58 years old Clinical indication: Abdominal pain; Prior surgery; Surgery date: 6+ months; Surgery type: Hyst, gb, colon, bladder; Patient HX: C/O mid/epigastric pain x 1 week TECHNIQUE: Imaging protocol: Computed tomography of the abdomen and pelvis without contrast. Radiation optimization: All CT scans at this facility use at least one of these dose optimization techniques: automated exposure control; mA and/or kV adjustment per patient size (includes targeted exams where dose is matched to clinical indication); or iterative reconstruction. COMPARISON: CT abdomen pelvis w con* [id number] 04/14/2016 10:39 PM RADIATION DOSE METRICS: Total DLP (mGy-cm): 1462.29 FINDINGS: Liver: Fatty infiltration of the liver. Gallbladder and bile ducts: Stable cholecystectomy. Pancreas: Normal. No ductal dilation. Spleen: Normal. No splenomegaly. Adrenals: Water density 2.1 cm left adrenal nodule most consistent with benign adrenal adenoma. No followup needed. Kidneys and ureters: Normal. No hydronephrosis. Stomach and bowel: Some residual barium in the cecum and intermittently throughout the colon. Mild colonic diverticulosis. Appendix: Stable appendectomy. Intraperitoneal space: Unremarkable. No free air. No significant fluid collection. Vasculature: Calcification of the abdominal aorta and/or iliac arteries consistent with atherosclerotic vessel disease. Lymph nodes: Unremarkable. No enlarged lymph nodes. Bladder: Unremarkable as visualized. Reproductive: Stable hysterectomy. Bones/joints: Multilevel moderate to severe facet degenerative changes. Soft tissues: Unremarkable. CT/CT abdomen pelvis con [id number] IMPRESSION: 1. Fatty infiltration of the liver. 2. Water density 2.1 cm left adrenal nodule most consistent with benign adrenal adenoma. No followup needed. Radiation Dose CTDIVOL = (mGy): DLP = 1462.29 (mGy-cm)
[2019-10-14 19:24] VITALS: BP 112/54; PULSE 96; RESP 18; O2SAT 95
== END 2019-10-14 19:25 | disposition home or self-care (01) ==
PROVIDERS: Nurse Practitioner Family; Emergency Provider Family Medicine; PCP Family Medicine
DX: K52.9 Noninfective gastroenteritis and colitis, unspecified (principal); Z79.82 Long term (current) use of aspirin; I50.9 Heart failure, unspecified; E78.5 Hyperlipidemia, unspecified; Z77.22 Contact with and (suspected) exposure to environmental tobacco smoke (acute) (chronic)
CPT/HCPCS: 12345; 74176; 80053; 81001; 83690; 85025; 85610; 85730; 86850; 86900; 96361; 96374; 96375; 99283; 99284; C9113; J2405; J7030

== ENCOUNTER 2019-10-16 16:05 | Outpatient (CLI) | payer MEDICARE, MEDICAID, SELFPAY ==
[2019-10-16 16:36] LABS: Basophils % 0.3 %; Eosinophils # 0.1 10^3/uL (0.0-0.8); Eosinophils % 1.5 %; Hematocrit 43.1 % (37.0-47.0); Hemoglobin 13.7 g/dL (11.5-15.3); Lymphocytes % 25.8 %; Mean Corpuscular HGB Conc 31.8 g/dL (30.0-36.0); Mean Corpuscular Hemoglobin 30.5 pg (28.0-34.0); Mean Platelet Volume 9.8 fL (7.4-10.4); Monocytes # 0.5 10^3/uL (0.2-0.9); Neutrophils # 2.31 10^3/uL (1.8-7.7); Neutrophils % 59.1 %; Nucleated Red Blood Cells % 0 %; Platelet Count 283 10^3/cmm (130-400); Red Blood Count 4.49 10^6/uL (4.1-5.3); Red Cell Distribution Width 13.3 % (12.1-15.1); White Blood Count 3.9 10^3/uL (4.0-10.0)
[2019-10-16 17:05] LABS: Blood Urea Nitrogen 14 mg/dL (6-20); Carbon Dioxide 24 mmol/L (22-29); Chloride 103 mmol/L (98-107); Glomerular Filtration Rate 73.9 mL/min (90-130); Glucose 112 mg/dL (65-115); Osmolality Calculated 281 mOsm/kg (285-295); Sodium 137 mmol/L (136-145)
[2019-10-16 17:06] LABS: Alanine Aminotransferase 12 U/L (0-33); Albumin Level 4.3 g/dL (3.5-5.2); Alkaline Phosphatase 104 IU/L (35-105); Aspartate Amino Transferase 18 U/L (0-32); C Reactive Protein 28.4 mg/L (0.0-4.9); Calcium 8.7 mg/dL (8.5-10.5); Globulin 3.3 g/dL (1.3-4.6); Total Bilirubin 0.3 mg/dL (0.15-1.2); Total Protein 7.6 g/dL (6.6-8.7)
[2019-10-16 17:10] LABS: Anion Gap 14.3 (5-19); Potassium 4.3 mmol/L (3.5-5.1)
== END 2019-10-16 16:06 | disposition home or self-care (01) ==
LOC: LAB 16:09
PROVIDERS: PCP Family Medicine; Visit Provider Family Medicine
DX: R19.7 Diarrhea, unspecified (principal)
CPT/HCPCS: 36415; 80053; 83993; 85025; 86140; 87077; 87186; 87493; 87506

== ENCOUNTER → 2019-10-23 12:33 | Outpatient (BNVA) | payer MEDICARE, MEDICAID, SELFPAY | PROVIDERS: PCP Family Medicine; Visit Provider Nurse Practitioner | DX: M54.42 Lumbago with sciatica, left side (principal); M54.41 Lumbago with sciatica, right side; M54.9 Dorsalgia, unspecified; Z79.891 Long term (current) use of opiate analgesic | CPT/HCPCS: 99213 ==

== ENCOUNTER → 2019-11-26 13:21 | Outpatient (BNVA) | payer MEDICARE, MEDICAID, SELFPAY | PROVIDERS: PCP Family Medicine; Visit Provider Anesthesiology | DX: M54.41 Lumbago with sciatica, right side (principal); M54.42 Lumbago with sciatica, left side; M54.9 Dorsalgia, unspecified; Z79.891 Long term (current) use of opiate analgesic | CPT/HCPCS: 99212; 99214 ==

== ENCOUNTER → 2019-12-12 11:19 | Outpatient (BNVA) | payer MEDICARE, MEDICAID, SELFPAY | PROVIDERS: PCP Family Medicine; Visit Provider Internal Medicine | DX: Z11.59 Encounter for screening for other viral diseases (principal); R10.13 Epigastric pain | CPT/HCPCS: 87635 ==

== ENCOUNTER 2019-12-16 08:14 | Day surgery (SDC) | payer MEDICARE, MEDICAID, SELFPAY ==
[2019-12-12 06:51] VITALS: BMI 35.5
[2019-12-16 08:25] VITALS: BP 158/97; PULSE 64; TEMP 36.6; O2SAT 97
--- NOTE | 2019-12-16 08:53 | ANES.PREANE2 ---
Pre-Anesthetic Assessment Pre-Anesthetic Assessment: Height/Weight: Height 1.63 m Weight 93.894 kg Temp Pulse BP Pulse Ox 97.9 F 64 158/97 97 12/16/19 08:25 12/16/19 08:25 12/16/19 08:25 12/16/19 08:25 Preop Diagnosis: egs Proposed Procedure: Operation Date: 12/16/19 09:00 Proposed Procedures p EGD 94540 R10.13(Not Applicable) - Randall Byrd MD Was Beta [place] taken within 24 hours: Yes Last intake: Intake Last Liquid Date 12/15/19 Last Liquid Time 20:00 Last Solid Date 12/15/19 Last Solid Time 22:00 Social: Social History: No alcohol and No tobacco Exam: Pre-Anes Outpt Exam: alert, oriented x 3, clear to auscultation bilaterally and regular rate & rhythm Airway: Submandibular: WNL Cervical ROM: WNL MP: 2 Dentition: Partials Pulmonary: Pulmonary: None reported CV/HEM: CV/HEM: CHF and HTN : : None reported Hepatic: Hepatic: None reported GI: GI: None reported Metabolic: Metabolic: Thyroid Musc/skel: Musc/skel: None reported Neuropsych: Neuropsych: Seizure Anesthetic Plan: ASA status: 3 Anesthesia: MAC PFSH Anesthesia PFSH: Medical History (Updated 12/05/19 @ 14:19 by Randall Byrd MD) Anemia Back Pain Congestive heart failure Cystitis Treat with Augmentin 875 mg twice daily for 10 days she did have a previous E. coli UTI which was treated with Bactrim unfortunately organism was resistant to Bactrim. Discussed with patient first and is to return make sure bladder is clear of infection may then need to consider urodynamics and cystoscopy to further evaluate her bladder. Meantime she will maintain a bladder diary and document her frequency urgency to be interesting to see if it is better with treatment of her cystitis. Dyslipidemia Encounter for long-term use of opiate analgesic FH: cholecystectomy Laceration of both fallopian tubes Morbid obesity Nonischemic cardiomyopathy Opioid contract exists Seizures Sleep apnea Surgical History History of colon resection Status post partial hysterectomy GUY with USO Dr. Husain 2003 Status post small bowel resection Family History Mother Cancer Colon cancer Grandmother Cancer Breast Other CAD (coronary artery disease) Diabetes Social History Smoking and tobacco status: never smoked Second hand smoke exposure: Yes Smoking risk assessment/counseling performed?: No Alcohol intake: current Alcohol intake frequency: holidays/special occasions only History of recent travel: No Data Anesthesia Cardiac Studies: No Data to Display
--- NOTE | 2019-12-16 09:06 | W.PM.OPSUD ---
Surgery/Procedure H&P Update DATE OF PROCEDURE: December 16, 2019 DATE H&P PERFORMED: 12/05/19 PREOP DIAGNOSIS: egs PLANNED PROCEDURE: Operation Date: 12/16/19 09:00 Proposed Procedures p EGD 13991 R10.13(Not Applicable) - Randall Byrd MD
[2019-12-16 09:18] VITALS: BP 144/93; PULSE 79; RESP 18; TEMP 36.2; O2SAT 96
--- NOTE | 2019-12-16 09:18 | ANE.PACU2 ---
Inpatient post-anesthesia follow up: Airway intact: Yes Vital signs: Temperature 97.2 F Pulse Rate 79 Respiratory Rate 18 Blood Pressure 144/93 Pulse Oximetry 96 Oxygen Delivery Me thod Room Air Oxygen Flow Rate Fraction of Inspir ed Oxygen Hydration adequate: Yes Nausea and vomiting: No Pain level: 1 Mental status: Baseline
[2019-12-16] MEDS: sodium chloride 0.9% 1,000 ML 30 ML IV (09:30)
== END 2019-12-16 09:52 | disposition home or self-care (01) ==
PROVIDERS: PCP Family Medicine; Visit Provider Internal Medicine
PROC: 0DJ08ZZ Inspection of Upper Intestinal Tract, Via Natural or Artificial Opening Endoscopic (ICD-10-PCS; CPT 43235; principal; 2019-12-16 09:00)
DX: R10.13 Epigastric pain (principal); I11.0 Hypertensive heart disease with heart failure; I50.9 Heart failure, unspecified; E66.01 Morbid (severe) obesity due to excess calories; Z68.35 Body mass index [BMI] 35.0-35.9, adult; E78.5 Hyperlipidemia, unspecified
CPT/HCPCS: 12345; 43235; J2704; J7030

== ENCOUNTER 2019-12-23 12:53 | Outpatient (CLI) | payer MEDICARE, MEDICAID, SELFPAY ==
--- NOTE | 2019-12-23 13:01 | MR_ITS ---
WS: [id number] MRI BRAIN WITH HIGH-RESOLUTION IMAGING THROUGH THE INTERNAL AUDITORY CANALS WITHOUT CONTRAST HISTORY: BILATERAL SENSORINEURAL HEARING LOSS COMPARISON: 06/02/2008 TECHNIQUE: Multiplanar, multisequence imaging is performed through the brain. Additional 3 mm imaging performed in multiple planes through the internal auditory canal. Unable to obtain IV access for contrast. Multiple attempts resulting in patient refusing any more att empts. No acute intracranial hemorrhage, midline shift, edema or mass effect. No significant atrophy or chronic microvascular ischemic disease. No prior infarct. No mass at the ce rebellopontine angles or displacement. Ventricles and extra-axial spaces are normal. No inferior displacement of cerebellar tonsils. Clivus and pituitary gland are normal. Internal and external auditory canals: Unremarkable without IV contrast. Cranial nerves VII and VIII complexes: Unremarkable. No mass effect or displacement identified. No wi dening of the internal auditory canal. Cerebellopontine angles: Normal. Paranasal sinuses: Normal. Mastoid air cells: Extensive bilateral mastoid air cell disease. There is fluid in the mastoid air ce lls bilaterally, RIGHT greater than LEFT. Calvarium and scalp: Normal. MR/MR iac's wo con [id number] IMPRESSION: 1. Normal unenhanced appearance of the internal auditory canals. Unable to ach ieve IV access for the contrast injection. 2. No significant atrophy and no prior infarcts. 3. Bilateral mastoid air cell effusions, RIGHT greater than LEFT.
== END 2019-12-23 12:54 | disposition home or self-care (01) ==
LOC: RADWPI 12:58
PROVIDERS: PCP Family Medicine; Visit Provider Specialist
DX: H90.3 Sensorineural hearing loss, bilateral (principal)
CPT/HCPCS: 70551

== ENCOUNTER → 2020-01-23 11:02 | Outpatient (BNVA) | payer MEDICARE, MEDICAID, SELFPAY | PROVIDERS: PCP Family Medicine; Visit Provider Anesthesiology | DX: M54.9 Dorsalgia, unspecified (principal); M54.41 Lumbago with sciatica, right side; M54.42 Lumbago with sciatica, left side; Z79.891 Long term (current) use of opiate analgesic | CPT/HCPCS: 99212; 99214 ==

== ENCOUNTER 2020-01-24 14:23 | Outpatient (CLI) | payer MEDICARE, MEDICAID, SELFPAY ==
--- NOTE | 2020-01-24 14:29 | MM_ITS ---
WS: [id number] BILATERAL SCREENING DIGITAL MAMMOGRAM WITH CAD HISTORY: SCREENING COMPARISON: 12/27/2018 and 11/23/2017 Bilateral CC and MLO views submitted. Computer aided detection analyzed. Breast composition: There are scattered areas of fibroglandular density. No suspicious masses, microc alcifications or architectural distortion. Scattered benign calcifications and breast arterial calcif ications. MM/[place] [id number] IMPRESSION: BI-RADS: 2-Benign FOLLOW UP: 1 Year Follow-up
== END 2020-01-24 14:24 | disposition home or self-care (01) ==
LOC: RADSHAW 14:28
PROVIDERS: PCP Family Medicine; Visit Provider Family Medicine
DX: Z12.31 Encounter for screening mammogram for malignant neoplasm of breast (principal)
CPT/HCPCS: 77067

== ENCOUNTER → 2020-02-17 16:00 | Outpatient (BNVA) | payer MEDICARE, MEDICAID, SELFPAY | PROVIDERS: PCP Family Medicine; Visit Provider Internal Medicine | DX: I50.9 Heart failure, unspecified (principal); E78.5 Hyperlipidemia, unspecified; I25.10 Atherosclerotic heart disease of native coronary artery without angina pectoris; E11.9 Type 2 diabetes mellitus without complications; I10 Essential (primary) hypertension; Z79.82 Long term (current) use of aspirin | CPT/HCPCS: 80048; 83880 ==

== ENCOUNTER → 2020-03-18 10:00 | Outpatient (BNVA) | payer MEDICARE, MEDICAID, SELFPAY | PROVIDERS: PCP Family Medicine; Visit Provider Nurse Practitioner | DX: M54.42 Lumbago with sciatica, left side (principal); M54.9 Dorsalgia, unspecified; M50.90 Cervical disc disorder, unspecified, unspecified cervical region; F40.240 Claustrophobia; Z79.891 Long term (current) use of opiate analgesic | CPT/HCPCS: 99213; 99214 ==

== ENCOUNTER 2020-03-27 12:03 | Outpatient (CLI) | payer MEDICARE, MEDICAID, SELFPAY ==
--- NOTE | 2020-03-27 12:09 | CT_ITS ---
WS: [id number] CT ABDOMEN AND PELVIS WITH CONTRAST HISTORY: RLQ PAIN TECHNIQUE: Imaging performed of the abdomen and pelvis with IV contrast. Single phase imaging of the abdomen. Coronal and sagittal reformats are submitted. All CT scans at [facility] use at least one of these dose optimization techniques: automated exposure control; mA and/or kV adjustment per patient size (includes targeted exams where dose is matched to clinical indication); or iterativ e reconstruction. IV CONTRAST: Omnipaque 300; 95 mL IV. Oral contrast: Yes. DLP: 1358.61 mGy.cm COMPARISON: 10/14/2019 Lower thorax: Dependent changes at the lung bases. Heart is normal size. No hiatal hernia. Liver/biliary system: Normal size with no intrahepatic dilatation. Gallbladder: Status post cholecystectomy. Pancreas: Normal. Spleen: Normal. Adrenal glands: Normal RIGHT adrenal gland. Well-circumscribed enhancing nodule measuring 1.9 x 1.6 c m in the LEFT adrenal gland. Nodule has been stable in size since 02/25/2009 and most consistent with a benign adenoma. Right kidney: Normal size kidney. There are a few scattered hypodensities which are probably cortical cyst but too small to characterize. Extrarenal pelvis again noted. Left kidney: Small cortical hypodensities. No obstruction. Small extrarenal pelvis is stable. Aorta: Mild atherosclerosis with no aneurysm. Lymphadenopathy: None. Free fluid: None. GI tract: Prior appendectomy. No GI tract obstruction. No wall thickening or edema. There are a few s cattered diverticula in the descending and sigmoid colon. No acute diverticulitis. Abdominal wall: Supraumbilical hernia measures 1.2 cm and contains fat only. Pelvis: Prior hysterectomy. Minimally distended urinary bladder. No adenopathy or ascites. Bones: Mild increase in lumbar lordosis. Mild facet joint arthritis at L4-5 and L5-S1. CT/CT abdomen pelvis w con* [id number] IMPRESSION: 1. No acute abdominal or pelvic abnormalities. 2. Prior cholecystectomy, appendectomy and hysterectomy. 3. Stable LEFT adrenal nodule is probably an adenoma. 4. No renal stone or obstruction. 5. Sigmoid diverticulosis without acute diverticulitis.
[2020-03-27] MEDS: iohexol 300 mg/mL 100 mL Btl IV (12:39)
== END 2020-03-27 12:04 | disposition home or self-care (01) ==
LOC: RAD 12:07
PROVIDERS: PCP Family Medicine; Visit Provider Family Medicine
DX: R10.31 Right lower quadrant pain (principal); K57.30 Diverticulosis of large intestine without perforation or abscess without bleeding; Z90.49 Acquired absence of other specified parts of digestive tract; Q42.8 Congenital absence, atresia and stenosis of other parts of large intestine; Z90.710 Acquired absence of both cervix and uterus
CPT/HCPCS: 74177

== ENCOUNTER 2020-04-07 07:40 | Outpatient (CLI) | payer MEDICARE, MEDICAID, SELFPAY ==
--- NOTE | 2020-04-07 08:00 | MR_ITS ---
WS: [id number] MRI CERVICAL SPINE NONCONTRAST HISTORY: M50.90 - Cervical disc disorder, unspecified, unspecified cervical region COMPARISON: 10/17/2012 Technique: Multiplanar, multisequence noncontrast imaging of the cervical spine. Posterior cervical alignment is normal. Mild degenerative disc disease and bulging at C5-6. No marrow edema or fracture. Increased T2 signal within the central cord consistent with a known syrinx. Syrinx has very slightly progressed since the prior study. Increased T2 signal now begins at the C4-5 disc space and extends t o the superior endplate of T1. The diameters less than 2 mm. Craniocervical junction, C1 and C2 relationship, odontoid process and soft tissues are normal. C2-C3: Normal. C3-C4: Normal. C4-C5: Very mild annular disc bulging. No stenosis. C5-C6: Mild annular disc bulge with a central protrusion. No significant stenosis. C6-C7: Very tiny central disc protrusion. No stenosis. C7-T1: Normal. Bilateral cervical chain lymph nodes. There are increased nodules in the RIGHT supraclavicular locati on and inferior RIGHT neck which may be tortuous vessels or lymph nodes. Not definitely visualized on prior studies. MR/MR cervical spin wo con* [id number] IMPRESSION: 1. Very slight progression of the known cervical syrinx. No increase in diamet er. 2. Central disc protrusion at T5-6 and T6-7 without stenosis or cord contact. 3. Possible RIGHT supraclavicular lymph nodes versus tortuous venous structure s. Consider follow-up neck CT with IV contrast to exclude lymphadenopathy.
== END 2020-04-07 07:41 | disposition home or self-care (01) ==
LOC: RADSHAW 07:41
PROVIDERS: PCP Family Medicine; Visit Provider Nurse Practitioner
DX: M50.90 Cervical disc disorder, unspecified, unspecified cervical region (principal); M51.24 Other intervertebral disc displacement, thoracic region
CPT/HCPCS: 72141

== ENCOUNTER → 2020-04-15 12:59 | Outpatient (BNVA) | payer MEDICARE, MEDICAID, SELFPAY | PROVIDERS: PCP Family Medicine; Visit Provider Nurse Practitioner | DX: M54.42 Lumbago with sciatica, left side (principal); M54.9 Dorsalgia, unspecified; M54.2 Cervicalgia; R59.0 Localized enlarged lymph nodes; Z79.891 Long term (current) use of opiate analgesic | CPT/HCPCS: 99214 ==

== ENCOUNTER 2020-04-29 08:47 | Outpatient (CLI) | payer MEDICARE, MEDICAID, SELFPAY ==
--- NOTE | 2020-04-29 | CT_ITS ---
WS: [id number] CT NECK WITH CONTRAST HISTORY: ENLARGED LYMPH NODES TECHNIQUE: Contiguous 5 mm axial images are performed through the neck with intravenous contrast. Sag ittal and coronal reformats are also submitted. All CT scans at [facility] use at least o ne of these dose optimization techniques: automated exposure control; mA and/or kV adjustment per pat ient size (includes targeted exams where dose is matched to clinical indication); or iterative recons truction. CONTRAST: CONTRAST: Omnipaque 300; 95 mL IV. DLP: 715.69 mGy-cm. COMPARISON: MRI 04/07/[address] 06/02/2008. Nasopharynx, oropharynx, hypopharynx and larynx are unremarkable. No soft tissue masses or abnormal e nhancement. Torus tubarius and fossa of Rosenmuller and parapharyngeal fat are normal. No significant lymphadenopathy is identified. No RIGHT supraclavicular lymphadenopathy. The prominent structure seen on the recent MRI corresponds to a slightly dilated junction of the RIGHT brachiocephalic vein with the subclavian vein in the RIGH T internal jugular vein. There is variable enhancement within the venous structures which could be du e to thrombus or phase of injection. Thyroid gland is absent and surgically removed. Subclavian glands and parotid glands are negative. No osseous abnormalities. Visualized portions of the skull base demonstrate no abnormalities. Orbits and globes are within norm al limits. No soft tissue masses. Visualized paranasal sinuses and mastoid air cells are normal. Lung apices are clear. CT/CT neck w con* [id number] IMPRESSION: 1. No significant cervical chain lymphadenopathy. 2. No RIGHT supraclavicular lymph nodes. 3. Changes seen on the recent MRI in the RIGHT supraclavicular fossa are relat ed to confluence of the RIGHT innominate vein with the RIGHT IJ and subclavian vein. Variable enhancement within this vessels which could be due to slow venou s outflow. Small amount of thrombus is not excluded. Clinically if further eval uation is necessary for thrombus at the junction of the subclavian vein with th e innominate ultrasound could be obtained of this area. 4. Status post thyroidectomy.
[2020-04-29] MEDS: iohexol 300 mg/mL 100 mL Btl IV (10:02)
== END 2020-04-29 08:48 | disposition home or self-care (01) ==
LOC: CT 08:50
PROVIDERS: PCP Family Medicine; Visit Provider Nurse Practitioner
DX: R59.0 Localized enlarged lymph nodes (principal); E89.0 Postprocedural hypothyroidism
CPT/HCPCS: 70491

== ENCOUNTER 2020-05-18 09:16 | Outpatient (CLI) | payer MEDICARE, MEDICAID, SELFPAY ==
--- NOTE | 2020-05-18 | US_ITS ---
WS: [id number] ULTRASOUND ABDOMEN LIMITED CLINICAL INFORMATION: ELEVATED LIPASE COMPARISON: None. FINDINGS: Liver Size: Mild hepatomegaly Craniocaudal length: 16.4 cm. Echogenicity: Fatty infiltration Surface nodularity: None. Mass (size and location): None. Bile ducts Intrahepatic ducts: Normal. Common bile duct diameter: 0.26 cm. Gallbladder Removed Pancreas Normal as visualized. Right kidney: Normal. Hydronephrosis: None. Size: 11.6 cm x 4.8 cm x 5.0 cm. Abdominal aorta and IVC Visualized portions are normal. Ascites: None. US/US liver [id number] IMPRESSION: 1. Mild hepatomegaly with diffuse fatty infiltration. 2. Gallbladder has been removed. 3. No hydronephrosis in right kidney.
== END 2020-05-18 09:17 | disposition home or self-care (01) ==
PROVIDERS: PCP Family Medicine; Visit Provider Family Medicine
DX: R74.8 Abnormal levels of other serum enzymes (principal); R16.0 Hepatomegaly, not elsewhere classified; K76.0 Fatty (change of) liver, not elsewhere classified
CPT/HCPCS: 76705

== ENCOUNTER → 2020-06-16 13:04 | Outpatient (BNVA) | payer MEDICARE, MEDICAID, SELFPAY | PROVIDERS: PCP Family Medicine; Visit Provider Anesthesiology | DX: M54.9 Dorsalgia, unspecified (principal); Z79.891 Long term (current) use of opiate analgesic | CPT/HCPCS: 99213 ==

== ENCOUNTER 2020-06-19 13:34 | Outpatient (CLI) | payer MEDICARE, MEDICAID, SELFPAY ==
--- NOTE | 2020-06-19 13:30 | USCV_ITS ---
Peggy Tejada Age: 59 Gender: F : 1960 Exam Date: 06/19/2020 14:04 Ordering Phys: Donna Pastrana Technologist: Abigail Barrios [place] [facility] [place] Indication: SEE CT SLOW MOVING FLOW UE HISTORY: See the CT of Rt. Upper Ex PROCEDURES: Venous duplex imaging was performed in only the right upper extremity. The following venous structures were evaluated: internal jugular vein, subclavian vein, axillary vein, and brachial veins. In addition, the basilic vein, cephalic vein, radial vein, and ulnar vein. Serial compression, augmentation maneuvers, and spectral Doppler flow evaluation were performed. FINDINGS: No evidence of deep vein thrombosis or superficial thrombophlebitis in the right upper extremity. CONCLUSIONS No evidence for right upper extremity deep venous thrombosis. No thrombus at the jugular/SVC confluence. Dr. Juliette Noland DO (Electronically Signed) Final Date: 19 Jun 2020 16:07 S
== END 2020-06-19 13:35 | disposition home or self-care (01) ==
LOC: US 13:37
PROVIDERS: PCP Family Medicine; Visit Provider Nurse Practitioner
DX: Q27.9 Congenital malformation of peripheral vascular system, unspecified (principal)
CPT/HCPCS: 93971

== ENCOUNTER → 2020-09-04 13:55 | Outpatient (BNVA) | payer MEDICARE, MEDICAID, SELFPAY | PROVIDERS: PCP Family Medicine; Visit Provider Anesthesiology | DX: G89.29 Other chronic pain (principal); M54.5 Low back pain; M54.2 Cervicalgia; R26.89 Other abnormalities of gait and mobility; Z91.81 History of falling; Z79.891 Long term (current) use of opiate analgesic | CPT/HCPCS: 99214 ==

== ENCOUNTER 2020-09-30 06:00 | Outpatient (RCR) | payer MEDICARE, MEDICAID, SELFPAY | END 2020-10-06 23:59 | disposition home or self-care (01) | LOC: SPT 06:00 | PROVIDERS: PCP Family Medicine; Referring Provider Anesthesiology; Visit Provider Anesthesiology | DX: M54.5 Low back pain (principal); G89.29 Other chronic pain; Z91.81 History of falling; R26.89 Other abnormalities of gait and mobility | CPT/HCPCS: 97113; 97161 ==

== ENCOUNTER 2020-10-07 06:00 | Outpatient (RCR) | payer MEDICARE, MEDICAID, SELFPAY | END 2020-11-05 23:59 | disposition home or self-care (01) | LOC: SPT 06:00 | PROVIDERS: PCP Family Medicine; Referring Provider Anesthesiology; Visit Provider Anesthesiology | DX: M54.5 Low back pain (principal); G89.29 Other chronic pain; Z91.81 History of falling; R26.89 Other abnormalities of gait and mobility | CPT/HCPCS: 97113 ==

== ENCOUNTER 2020-11-06 06:00 | Outpatient (RCR) | payer MEDICARE, MEDICAID, SELFPAY | END 2020-12-06 23:59 | disposition home or self-care (01) | LOC: SPT 06:00 | PROVIDERS: PCP Family Medicine; Referring Provider Anesthesiology; Visit Provider Anesthesiology | DX: M54.50 Low back pain, unspecified (principal); G89.29 Other chronic pain; R26.89 Other abnormalities of gait and mobility; Z91.81 History of falling | CPT/HCPCS: 97113 ==

== ENCOUNTER → 2020-11-10 10:22 | Outpatient (BNVA) | payer MEDICARE, MEDICAID, SELFPAY | PROVIDERS: PCP Family Medicine; Visit Provider Nurse Practitioner | DX: G89.29 Other chronic pain (principal); M54.50 Low back pain, unspecified; M54.2 Cervicalgia; F43.12 Post-traumatic stress disorder, chronic; F33.1 Major depressive disorder, recurrent, moderate; Z79.891 Long term (current) use of opiate analgesic | CPT/HCPCS: 99213; 99214 ==

== ENCOUNTER → 2021-01-06 10:39 | Outpatient (BNVA) | payer MEDICARE, MEDICAID, SELFPAY | PROVIDERS: PCP Family Medicine; Visit Provider Anesthesiology | DX: G89.29 Other chronic pain (principal); M54.50 Low back pain, unspecified; M54.2 Cervicalgia; Z79.891 Long term (current) use of opiate analgesic | CPT/HCPCS: 99214 ==

== ENCOUNTER 2021-01-11 14:45 | Emergency (ER) | payer MEDICARE, MEDICAID, SELFPAY ==
[2021-01-11 15:20] VITALS: BP 120/76; PULSE 85; RESP 16; TEMP 37.1; O2SAT 95
--- NOTE | 2021-01-11 16:30 | ECG_ITS ---
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 Measurements Intervals Animas Rate: 83 P: 53 AL: 166 QRS: -57 QRSD: 103 T: 30 QT: 338 QTc: 399 Interpretive Statements SINUS RHYTHM LEFT AXIS DEVIATION [QRS AXIS < -30] PATTERN CONSISTENT WITH PULMONARY DISEASE Compared to ECG 06/26/2019 14:52:58 Sinus bradycardia no longer present Electronically Signed On 01-11-2021 17:13:26 [employer] by Jeronimo Moreira M.D. [email or web address]/[id number] f
== END 2021-01-11 18:04 | disposition left against medical advice (07) ==
LOC: ER 14:49
PROVIDERS: Emergency Provider Family Medicine; PCP Family Medicine
DX: Z53.21 Procedure and treatment not carried out due to patient leaving prior to being seen by health care provider (principal)
CPT/HCPCS: 93005

== ENCOUNTER → 2021-02-18 15:00 | Outpatient (BNVA) | payer MEDICARE, MEDICAID, SELFPAY | PROVIDERS: PCP Family Medicine; Visit Provider Internal Medicine | DX: I11.0 Hypertensive heart disease with heart failure (principal); I50.9 Heart failure, unspecified; E78.5 Hyperlipidemia, unspecified; G47.30 Sleep apnea, unspecified; I42.8 Other cardiomyopathies; E66.01 Morbid (severe) obesity due to excess calories | CPT/HCPCS: 80048; 83880 ==

== ENCOUNTER 2021-02-23 11:02 | Emergency (ER) | payer MEDICARE, MEDICAID, SELFPAY ==
[2021-02-23 11:26] VITALS: BP 101/70; PULSE 74; RESP 18; TEMP 36.2; O2SAT 94; BMI 30.9
--- NOTE | 2021-02-23 11:31 | XR_ITS ---
WS: [id number] Exam: XR chest 1V portable [id number] Date/Time of Exam: 02/23/2021 11:31 AM Reason For Exam: dyspnea/cough Comparison 10/24/2017. The lungs are fully inflated and clear. Normal cardiomediastinal silhouette. Bony structures are inta ct. No pleural effusion. XR/XR chest 1V portable [id number] IMPRESSION: 1. No acute cardiopulmonary finding.
--- NOTE | 2021-02-23 12:01 | W.ED.COVID ---
HPI - COVID General: Chief Complaint: COVID symptoms Stated Complaint: covid positive, body aches Time Seen by Provider: 02/23/21 14:33 Triage information: Has fever, cough or shortness of breath. Exposure to COVID + person last 14 days History of Present Illness: HPI Narrative: Patient states she feels she has COVID symptoms. COVID symptoms been present more than 10 days. Patient tested at home. States that she is been vomiting earlier today. She has some chills and muscle aches. States she does have a hard time holding anything down today. COVID 19 common symptoms: positive nausea, vomiting and diarrhea; negative fever(s), chills, non-productive cough, productive cough, dyspnea, body aches, headache(s), throat pain or nasal congestion COVID 19 other sytmptoms: negative chest pain COVID Results: SARS-CoV-2 RNA (RT-PCR) Not detected (NOT DETECTED) 12/12/19 11:19 12/12/19 Review of Systems Const: Denies: fever(s), chills or body aches Eyes: Denies: change in vision or blurry vision ENMT: Denies: throat pain or nasal congestion Card: Denies: chest pain or dyspnea on exertion Resp: Denies: dyspnea, productive cough or non-productive cough GI: Reports: nausea, vomiting and diarrhea; Denies: abdominal pain Musc: Denies: extremity pain Skin/Breast: Denies: rash Neuro: Denies: headache(s) Psych: Denies: anxiety or depression Saurabh/Lymph: Denies: easy bruising PFS ED PFSH: Medical History Anemia Back Pain Chronic neck and back pain Congestive heart failure Cystitis Treat with Augmentin 875 mg twice daily for 10 days she did have a previous E. coli UTI which was treated with Bactrim unfortunately organism was resistant to Bactrim. Discussed with patient first and is to return make sure bladder is clear of infection may then need to consider urodynamics and cystoscopy to further evaluate her bladder. Meantime she will maintain a bladder diary and document her frequency urgency to be interesting to see if it is better with treatment of her cystitis. Dyslipidemia Encounter for long-term use of opiate analgesic FH: cholecystectomy Laceration of both fallopian tubes Morbid obesity Nonischemic cardiomyopathy Opioid contract exists Seizures Sleep apnea Surgical History History of colon resection Status post partial hysterectomy GUY with ANGELA Husain 2003 Status post small bowel resection Family History Mother Cancer Colon cancer Grandmother Cancer Breast Other CAD (coronary artery disease) Diabetes Social History Smoking and tobacco status: never smoked Second hand smoke exposure: Yes Smoking risk assessment/counseling performed?: No Alcohol intake: current Alcohol intake frequency: holidays/special occasions only Alcohol type: wine and other History of recent travel: No Physical Exam Narrative: EXAM NARRATIVE: Patient does not appear in acute distress but she does not look like she feels well. Const: COMMON NORMALS: no acute distress, average body habitus and patient oriented x3 HENMT: COMMON NORMALS: normocephalic HEAD & SCALP: normal to inspection and normocephalic FACE & SINUS: normal facial exam Eye: COMMON NORMALS: conjunctivae normal GENERAL EYE: appearance normal, both eyes and all related structures CONJUNCTIVA: Yes conjunctivae normal Neck/C-Spine: COMMON NORMALS: no JVD Chest: COMMONS NORMALS: normal inspection of the chest Resp: COMMON NORMALS: normal respiratory effort and clear to auscultation bilaterally AUSCULTATION: clear to auscultation bilaterally Cardio: COMMON NORMALS: no JVD, regular rate and regular rhythm RATE: regular rate RHYTHM: regular rhythm GI: COMMON NORMALS: Normal to inspection, nondistended, normoactive bowel sounds present Extremity: COMMON NORMALS: normal to inspection and full ROM Neuro: COMMON NORMALS: patient oriented x3 Skin: COMMON NORMALS: no rashes or lesions noted GENERAL SKIN EXAM: no rashes or lesions noted Course Vital Signs: Vital signs: Vital Signs Temperature 97.1 F L 02/23/21 11:26 Pulse Rate 75 02/23/21 14:01 Respiratory Rate 18 02/23/21 14:01 Blood Pressure 109/77 02/23/21 14:01 Pulse Oximetry 95 02/23/21 14:01 MDM - COVID MDM Narrative: Medical decision making narrative: Brief history and physical exam was performed as part of the triage process. Due to current ED wait time patient will be placed in waiting room until a room becomes available. Explained to patient he/she will be seen in order of severity. Patient is currently safe to wait in the waiting room until we can get them placed. Patient informed that if condition worsens at any time to please let the front window cashier know. Patient received IV fluids, Zofran. To follow-up primary care provider discussed case with Dr. Joseph Lab Data: Labs: Lab Results 02/23/21 02/23/21 12:35 12:35 WBC 6.4 10^3/uL 10^3/ uL (4.0-10.0) RBC 4.78 10^6/uL 10^6 /uL (4.1-5.3) Hgb 14.0 g/dL g/dL (11.5-15.3) Hct 43.7 % % (37.0-47.0) MCV 91.4 fl fl (81-99) MCH 29.3 pg pg (28.0-34.0) MCHC 32.0 g/dL g/dL (30.0-36.0) RDW 13.2 % % (12.1-15.1) Plt Count 263 10^3/cmm 10^3 /cmm (130-400) MPV 9.8 fL fL (7.4-10.4) Neut % (Auto) 72.2 % % Lymph % (Auto) 19.1 % % [place] % (Auto) 8.1 % % Eos % (Auto) 0.2 % % Baso % (Auto) 0.2 % % Neut # (Auto) 4.65 10^3/uL 10^3 /uL (1.8-7.7) Lymph # (Auto) 1.2 10^3/uL 10^3/ uL (0.8-4.8) [place] # (Auto) 0.5 10^3/uL 10^3/ uL (0.2-0.9) Eos # (Auto) 0.0 10^3/uL 10^3/ uL (0.0-0.8) Baso # (Auto) 0.0 10^3/uL 10^3/ uL (0.0-0.1) Nucleated RBC % (a uto) 0 % % Nucleated RBCs # 0.0 /100WBC /100W BC Sodium 133 mmol/L L mmol /L (136-145) Potassium 3.9 mmol/L mmol/L (3.5-5.1) Chloride 94 mmol/L L mmol/ L (98-107) Carbon Dioxide 22 mmol/L mmol/L (22-29) Anion Gap 20.9 H (5-19) BUN 41 mg/dL H mg/dL (6-20) Creatinine 1.4 mg/dL H mg/dL (0.5-0.9) GFR Calculation 38.5 mL/min L mL/ min (90-130) Glucose 89 mg/dL mg/dL (65-115) Calculated Osmolal ity 286 mOsm/kg mOsm/ kg (285-295) Calcium 8.4 mg/dL L mg/dL (8.5-10.5) COVID Results: SARS-CoV-2 RNA (RT-PCR) Not detected (NOT DETECTED) 12/12/19 11:19 12/12/19 Discharge Plan Discharge Patient Disposition: Home Clinical Impression: COVID-19 Condition: Stable Prescriptions: New Zofran 4 mg tablet 4 mg PO Q8H 3 Days Qty: 9 RF: 0 No Action nitroglycerin 0.4 mg tablet, sublingual 0.4 mg SUBLINGUAL Q5M PRN (Reason: Chest Pain) RF: 0 One-A-Day Women's Complete 18 mg-400 mcg- 25 mcg tablet PO RF: 0 hydrocodone-acetaminophen 5-325 mg tablet 1 tab PO QID PRN (Reason: pain) 30 Days Qty: 120 RF: 0 tizanidine 4 mg tablet 4 mg PO TID PRN (Reason: muscle spasticity) 30 Days Qty: 90 RF: 1 ondansetron HCl 4 mg tablet 4 mg PO PRN RF: 0 levetiracetam 750 mg tablet 1,500 mg PO BID RF: 0 levothyroxine 100 mcg capsule See Rx Instructions .ROUTE .COMPLEX RF: 0 lamotrigine 25 mg tablet 100 mg PO BID RF: 0 aspirin [Vicki Chewable Aspirin] 81 mg tablet,chewable 81 mg PO BID RF: 0 diphenhydramine HCl [Benadryl] 25 mg capsule 25 mg PO ONCE PRN (Reason: itching) Qty: 1 RF: 0 lisinopril 20 mg tablet 20 mg PO .COMPLEX Qty: 180 RF: 2 gabapentin 800 mg tablet 800 mg PO QID 30 Days Qty: 120 RF: 1 carvedilol 12.5 mg tablet 12.5 mg PO BID Qty: 180 RF: 2 furosemide [Lasix] 20 mg tablet 20 mg PO BID Qty: 180 RF: 2 omeprazole 20 mg capsule,delayed release(DR/EC) 40 mg PO DAILY RF: 0 levothyroxine 88 mcg tablet See Rx Instructions .ROUTE .COMPLEX RF: 0 Discharge Orders: Discharge ED (Routine); Ordered 02/23/21 Ordered By: Ayaan Damon Referrals: Patrice Juan MD [Primary Care Provider] - Discharge Diet: Advance as tolerated Discharge Activity: Increase activity as tolerated Patient Instructions: COVID-19 (Coronavirus Disease 2019) (ED) Activity Restrictions/Additional Instructions: Follow-up with medical provider as directed. Take medications as prescribed. Return to the ER or your medical provider if condition worsens. Please read and understand discharge instructions. If any questions ask please. Make sure you drink plenty of fluids. Coding Level of Care Code ED Gardening Supervisor for Chg Fwd Exam Comprehensive
[2021-02-23 12:44] LABS: Basophils % 0.2 %; Eosinophils % 0.2 %; Hematocrit 43.7 % (37.0-47.0); Lymphocytes # 1.2 10^3/uL (0.8-4.8); Lymphocytes % 19.1 %; Mean Corpuscular Hemoglobin 29.3 pg (28.0-34.0); Mean Corpuscular Volume 91.4 fl (81-99); Mean Platelet Volume 9.8 fL (7.4-10.4); Monocytes # 0.5 10^3/uL (0.2-0.9); Monocytes % 8.1 %; Neutrophils # 4.65 10^3/uL (1.8-7.7); Neutrophils % 72.2 %; Nucleated Red Blood Cells % 0 %; Platelet Count 263 10^3/cmm (130-400); Red Blood Count 4.78 10^6/uL (4.1-5.3); Red Cell Distribution Width 13.2 % (12.1-15.1); White Blood Count 6.4 10^3/uL (4.0-10.0)
[2021-02-23 13:08] LABS: Anion Gap 20.9 (5-19); Blood Urea Nitrogen 41 mg/dL (6-20); Calcium 8.4 mg/dL (8.5-10.5); Carbon Dioxide 22 mmol/L (22-29); Chloride 94 mmol/L (98-107); Glomerular Filtration Rate 38.5 mL/min (90-130); Glucose 89 mg/dL (65-115); Osmolality Calculated 286 mOsm/kg (285-295); Potassium 3.9 mmol/L (3.5-5.1); Sodium 133 mmol/L (136-145)
[2021-02-23 14:01] VITALS: BP 109/77; PULSE 75; RESP 18; O2SAT 95
[2021-02-23] MEDS: sodium chloride 0.9% 1,000 ML 999 ML IV (14:27)
[2021-02-23] MEDS: ondansetron 2 mg/ML SDV 2 mL 4 MG IM (14:27)
[2021-02-23 16:23] VITALS: O2SAT 95
[2021-02-24 22:52] LABS: Quest SARS-CoV-2 RNA DETECTED (NOT DETECTED)
== END 2021-02-23 16:24 | disposition home or self-care (01) ==
PROVIDERS: Family Medicine; Emergency Provider Nurse Practitioner Family; PCP Family Medicine
DX: U07.1 COVID-19 (principal); Z79.82 Long term (current) use of aspirin; I50.9 Heart failure, unspecified; E78.5 Hyperlipidemia, unspecified; Z77.22 Contact with and (suspected) exposure to environmental tobacco smoke (acute) (chronic)
CPT/HCPCS: 71045; 80048; 85025; 87635; 96360; 96372; 99284; J2405; J7030

== ENCOUNTER → 2021-03-09 10:16 | Outpatient (BNVA) | payer MEDICARE, MEDICAID, SELFPAY | PROVIDERS: PCP Family Medicine; Visit Provider Anesthesiology | DX: G89.29 Other chronic pain (principal); M54.50 Low back pain, unspecified; M54.2 Cervicalgia; Z79.891 Long term (current) use of opiate analgesic | CPT/HCPCS: 99214 ==

== ENCOUNTER 2021-06-16 14:12 | Outpatient (CLI) | payer MEDICARE, MEDICAID, SELFPAY ==
--- NOTE | 2021-06-16 14:26 | MM_ITS ---
WS: [id number] BILATERAL 3D TOMOSYNTHESIS DIGITAL SCREENING MAMMOGRAPHY WITH CAD CLINICAL INFORMATION: SCREENING HISTORY: Screening mammogram. LEFT breast pain and soreness. COMPARISON: January 24, 2020 TECHNIQUE: Bilateral CC and MLO views. FINDINGS: Scattered fibroglandular densities bilaterally. Vascular calcification. Stable 5 mm ovoid density upp er outer RIGHT breast. No suspicious focal mass, asymmetry, calcifications, or architectural distorti on. No evidence of malignancy. MM/[place] [id number] IMPRESSION: BI-RADS: 2-Benign FOLLOW UP: 1 Year Follow-up Recommend return to annual screening mammography.
== END 2021-06-16 14:13 | disposition home or self-care (01) ==
LOC: RAD 14:14
PROVIDERS: PCP Family Medicine; Visit Provider Family Medicine
DX: Z12.31 Encounter for screening mammogram for malignant neoplasm of breast (principal)
CPT/HCPCS: 77063; 77067

== ENCOUNTER 2021-06-28 06:12 | Day surgery (SDC) | payer MEDICARE, MEDICAID, SELFPAY ==
[2021-06-25 14:09] VITALS: BMI 34.0
[2021-06-28 06:48] VITALS: BP 161/93; PULSE 68; RESP 18; TEMP 36.6; O2SAT 97
[2021-06-28] MEDS: sodium chloride 0.9% 1,000 ML 30 ML IV (07:05)
--- NOTE | 2021-06-28 07:24 | ANES.PREANE2 ---
Pre-Anesthetic Assessment Height/Weight: Height 1.63 m Weight 89.811 kg Temp Pulse Resp BP Pulse Ox 97.9 F 68 18 161/93 97 06/28/21 06:48 06/28/21 06:48 06/28/21 06:48 06/28/21 06:48 06/28/21 06:48 Preop Diagnosis: FH and h/o polyps Operation Date: 06/28/21 07:45 Proposed Procedures p Colonoscopy G0105(Not Applicable) - Randall Byrd MD Familial anesthetic complications: None Was Beta [place] taken within 24 hours: Yes Was Clonidine taken within 24 hours: N/A Last intake: Intake Last Liquid Date 06/27/21 Last Liquid Time 23:30 Last Solid Date 06/26/21 Last Solid Time 18:00 Social No alcohol and No tobacco Airway Submandibular: within normal limits Cervical ROM: Other (Limited ROM in extension ) Mallampati: Class II Dentition: false Pulmonary Sleep Apnea Supraclavicular lymphadenopathy CV/HEM Anemia (Hx of anemia ), Congestive Heart Failure and Hypertension Nonischemic cardiomypathy Chronic Renal Insufficiency (Acute vs chronic renal disease ? Bump in creatinine and BUN 02/23/21) Hepatic None reported GI Gastroesophageal Reflux Disease (Poorly controlled GERD ) Metabolic None reported Musc/skel Osteoarthritis/DJD prison opiate use Neuropsych Anxiety, Depression and Seizure (Epilepsy, well controlled last dose medication 06/27/21 does not take in AM per patient) Claustrophobia PTSD Anesthetic Plan ASA status: 3 Anesthesia: Anesthesia Evaluation and MAC Other: I discussed with the patient risks, goals, and benefits of MAC and general anesthesia. We discussed spectrum of MAC anesthesia including conversion to general as well as possibility of recall of intraoperative stimuli including discomfort/pain. Patient agrees to proceed with MAC. Risk of > 500 ml blood loss (7ml/kg in children): No Medications/Allergies Home Medications Medication Instructions Recorded Confirmed Last Taken Type levetiracetam 750 mg tablet 1,500 mg PO BID 02/25/19 06/28/21 06/27/21 History levothyroxine 100 mcg capsule See Rx Instructions .ROUTE .COMPLEX 02/25/19 06/28/21 06/28/21 History ondansetron HCl 4 mg tablet 4 mg PO PRN 02/25/19 06/28/21 2 Weeks Ago History ~06/14/21 aspirin 81 mg chewable tablet 81 mg PO BID 04/08/19 06/28/21 2 Weeks Ago History (Vicki Chewable Low Dose Aspirin) ~06/14/21 omeprazole 20 mg capsule,delayed 40 mg PO DAILY 06/26/19 06/28/21 06/27/21 History release lamotrigine 25 mg tablet 100 mg PO BID tab 09/16/19 06/28/21 06/27/21 History nitroglycerin 0.4 mg sublingual 0.4 mg SUBLINGUAL Q5M PRN 09/16/19 06/28/21 2 Months Ago History tablet ~04/28/21 levothyroxine 88 mcg tablet See Rx Instructions .ROUTE .COMPLEX 10/14/19 06/28/21 06/27/21 History diphenhydramine HCl 25 mg capsule 25 mg PO ONCE PRN #1 cap 04/21/20 06/28/21 1 Week Ago Rx (Benadryl) ~06/21/21 gabapentin 800 mg tablet 800 mg PO QID 30 Days #120 tab 06/26/20 06/28/21 06/27/21 Rx carvedilol 12.5 mg tablet 12.5 mg PO BID #180 tab 11/13/20 06/28/21 06/28/21 06:00 Rx furosemide 20 mg tablet (Lasix) 20 mg PO BID #180 tab 11/13/20 06/28/21 06/27/21 Rx hydrocodone 5 mg-acetaminophen 325 1 tab PO QID PRN 30 Days #120 tab 03/09/21 06/28/21 06/25/21 Rx mg tablet lisinopril 20 mg tablet 20 mg PO .COMPLEX #180 tab 06/07/21 06/28/21 06/27/21 Rx fluticasone propionate 50 1 spray INTRANASAL DAILY 06/25/21 06/28/21 06/27/21 History mcg/actuation nasal spray,suspension Allergies Allergy/AdvReac Type Severity Reaction Status Date / Time adhesive Allergy rash and Verified 06/15/21 10:49 itching promethazine Allergy nausea and Verified 06/15/21 10:49 vomiting Contrast dye Allergy itching, Uncoded 06/15/21 10:49 redness, felt like I was on fire Current Medications Generic Name Dose Route Start Last Admin Trade Name Freq PRN Reason Stop Dose Admin Sodium Chloride 1,000 mls @ 30 mls/hr 06/28/21 06:30 06/28/21 07:05 Sodium Chloride 0.9% IV 30 mls/hr .Q24H GUERO Administration PFSH Anesthesia Medical History Anemia Back Pain Chronic neck and back pain Congestive heart failure Cystitis Treat with Augmentin 875 mg twice daily for 10 days she did have a previous E. coli UTI which was treated with Bactrim unfortunately organism was resistant to Bactrim. Discussed with patient first and is to return make sure bladder is clear of infection may then need to consider urodynamics and cystoscopy to further evaluate her bladder. Meantime she will maintain a bladder diary and document her frequency urgency to be interesting to see if it is better with treatment of her cystitis. Dyslipidemia Encounter for long-term use of opiate analgesic FH: cholecystectomy Laceration of both fallopian tubes Morbid obesity Nonischemic cardiomyopathy Opioid contract exists Seizures Sleep apnea Surgical History History of colon resection Status post partial hysterectomy GUY with USO Dr. Husain 2003 Status post small bowel resection Family History Mother Cancer Colon cancer Grandmother Cancer Breast Other CAD (coronary artery disease) Diabetes Social History Smoking and tobacco status: never smoked Second hand smoke exposure: Yes Smoking risk assessment/counseling performed?: No Alcohol intake: current Alcohol intake frequency: holidays/special occasions only Alcohol type: wine and other History of recent travel: No Data Anesthesia Cardiac Studies: Echocardiogram Ultrasound 10/11/19
--- NOTE | 2021-06-28 07:40 | W.PM.OPSFHP ---
Same Day Surgery H&P Indication for Procedure/HPI DATE OF PROCEDURE: June 28, 2021 CHIEF COMPLAINT/INDICATIONFOR SURGICAL PROCEDURE: Family history family history of colon cancer PREOP DIAGNOSIS: FH and h/o polyps PLANNED PROCEDURE: Operation Date: 06/28/21 07:45 Proposed Procedures p Colonoscopy G0105(Not Applicable) - Randall Byrd MD Medications/Allergies* Home Medications Medication Instructions Recorded Confirmed Type levetiracetam 750 mg tablet 1,500 mg PO BID 02/25/19 06/28/21 History levothyroxine 100 mcg capsule See Rx Instructions .ROUTE .COMPLEX 02/25/19 06/28/21 History ondansetron HCl 4 mg tablet 4 mg PO PRN 02/25/19 06/28/21 History aspirin 81 mg chewable tablet 81 mg PO BID 04/08/19 06/28/21 History (Vicki Chewable Low Dose Aspirin) omeprazole 20 mg capsule,delayed 40 mg PO DAILY 06/26/19 06/28/21 History release lamotrigine 25 mg tablet 100 mg PO BID tab 09/16/19 06/28/21 History nitroglycerin 0.4 mg sublingual 0.4 mg SUBLINGUAL Q5M PRN 09/16/19 06/28/21 History tablet levothyroxine 88 mcg tablet See Rx Instructions .ROUTE .COMPLEX 10/14/19 06/28/21 History fluticasone propionate 50 1 spray INTRANASAL DAILY 06/25/21 06/28/21 History mcg/actuation nasal spray,suspension Allergies/Adverse Reactions Allergy/AdvReac Type Severity Reaction Status Date / Time adhesive Allergy rash and Verified 06/15/21 10:49 itching promethazine Allergy nausea and Verified 06/15/21 10:49 vomiting Contrast dye Allergy itching, Uncoded 06/15/21 10:49 redness, felt like I was on fire Current Medications: Generic Name Dose Route Start Last Admin Trade Name Freq PRN Reason Stop Dose Admin Sodium Chloride 1,000 mls @ 30 mls/hr 06/28/21 06:30 06/28/21 07:05 Sodium Chloride 0.9% IV 30 mls/hr .Q24H GUERO Administration Pertinent History/Comorbid Conditions* Medical History (Updated 06/15/21 @ 11:10 by Randall Byrd MD) Anemia Back Pain Chronic neck and back pain Congestive heart failure Cystitis Treat with Augmentin 875 mg twice daily for 10 days she did have a previous E. coli UTI which was treated with Bactrim unfortunately organism was resistant to Bactrim. Discussed with patient first and is to return make sure bladder is clear of infection may then need to consider urodynamics and cystoscopy to further evaluate her bladder. Meantime she will maintain a bladder diary and document her frequency urgency to be interesting to see if it is better with treatment of her cystitis. Dyslipidemia Encounter for long-term use of opiate analgesic FH: cholecystectomy Laceration of both fallopian tubes Morbid obesity Nonischemic cardiomyopathy Opioid contract exists Seizures Sleep apnea Surgical History (Updated 04/08/19 @ 16:24 by Josh Puente DO) History of colon resection Status post partial hysterectomy GUY with USO Dr. Husain 2003 Status post small bowel resection Family History (Updated 04/08/19 @ 15:37 by Mena Morrison LPN) Diabetes CAD (coronary artery disease) Cancer Mother Colon cancer Grandmother Breast Social History Smoking and tobacco status: never smoked Second hand smoke exposure: Yes Smoking risk assessment/counseling performed?: No Alcohol intake: current Alcohol intake frequency: holidays/special occasions only Alcohol type: wine and other History of recent travel: No Pertinent Exam Findings alert, oriented x 3, clear to auscultation bilaterally, regular rate & rhythm, operative site marked and procedure specific exam findings Recommendations Surgery/Procedure today Coding Level of Care Code Acute Computer Technologist for Kendal Sutherland
[2021-06-28 08:09] VITALS: BP 126/78; PULSE 78; RESP 18; TEMP 36.1; O2SAT 100
--- NOTE | 2021-06-28 08:12 | ANE.PACU2 ---
Documented by User: Nohemi Graham CRNA 06/28/21 08:12 Inpatient post-anesthesia follow up: Airway intact: Yes Vital signs: Temperature 97.9 F Pulse Rate 68 Respiratory Rate 18 Blood Pressure 161/93 Pulse Oximetry 97 Oxygen Delivery Me thod Oxygen Flow Rate Fraction of Inspir ed Oxygen Hydration adequate: Yes Nausea and vomiting: No Pain level: 1 Mental status: Baseline
[2021-06-28 08:19] VITALS: BP 144/78; PULSE 63; RESP 18; TEMP 36.2; O2SAT 98
== END 2021-06-28 08:46 | disposition home or self-care (01) ==
PROVIDERS: PCP Family Medicine; Visit Provider Internal Medicine
PROC: 0DJD8ZZ Inspection of Lower Intestinal Tract, Via Natural or Artificial Opening Endoscopic (ICD-10-PCS; CPT 45378; principal; 2021-06-28 07:45)
DX: Z86.010 Personal history of colon polyps (principal); Z80.0 Family history of malignant neoplasm of digestive organs; K63.89 Other specified diseases of intestine; G47.30 Sleep apnea, unspecified; K21.9 Gastro-esophageal reflux disease without esophagitis; M19.90 Unspecified osteoarthritis, unspecified site; Z79.82 Long term (current) use of aspirin; I50.9 Heart failure, unspecified; E78.5 Hyperlipidemia, unspecified; Z79.891 Long term (current) use of opiate analgesic; E66.01 Morbid (severe) obesity due to excess calories; Z68.34 Body mass index [BMI] 34.0-34.9, adult; Z90.49 Acquired absence of other specified parts of digestive tract
CPT/HCPCS: J2704; J7030

== ENCOUNTER 2021-07-30 14:57 | Outpatient (CLI) | payer MEDICARE, MEDICAID, SELFPAY ==
--- NOTE | 2021-07-30 15:09 | XR_ITS ---
WS: [id number] Exam: XR lumbar spine f/e only [id number] Date/Time of Exam: 07/30/2021 3:09 PM Reason For Exam: VERTEBROGENIC LOW BACK PAIN No fracture or dislocation. Degenerative anterolisthesis of L4 on L5 with about 8 mm forward movement of L4. Minimal degenerative narrowing of the L4-5 disc. Facet arthropathy at L4-5 and L5-S1. No sign ificant flexion or extension instability noted otherwise. XR/XR lumbar spine f/e only [id number] IMPRESSION: 1. Degenerative anterolisthesis of L4 on L5 with about 8 mm forward movement of L4. This does not change significantly between flexion and extension. 2. Facet arthropathy L4-5 L5-S1. 3. No fracture. Mild spondylosis.
--- NOTE | 2021-07-30 15:09 | CT_ITS ---
WS: [id number] CT LUMBAR SPINE, noncontrast. HISTORY: VERTEBROGENIC LOW BACK PAIN TECHNIQUE: Contiguous 2.5 mm axial imaging are performed. Sagittal and coronal reformats are submitte d and reviewed. All CT scans at [facility] use at least one of these dose optimization techni ques: automated exposure control; mA and/or kV adjustment per patient size (includes targeted exams w here dose is matched to clinical indication); or iterative reconstruction. IV contrast: None DLP: 1648.93 mGy.cm COMPARISON: 08/13/2012 Normal posterior lumbar alignment. No fractures. Small endplate hypertrophic osteophytes. Disc spaces are well-maintained. Degenerative air in the facet joints of L4-5 and L5-S1. Facet joints at L4-5 ar e widened. L1-2: Normal. L2-3: Very mild annular disc bulging with encroachment upon the ventral thecal sac. No stenosis. L3-4: Mild diffuse annular disc bulge with a LEFT paracentral disc protrusion. Smaller RIGHT foramina l disc protrusion. Mild ligamentum flavum and facet arthritis. Mild disc encroachment upon the ventra l thecal sac and subarticular recesses. Slightly greater encroachment upon the LEFT traversing L4 ner ve root. L4-5: Annular disc bulging. Broad-based RIGHT foraminal disc protrusion. Marked ligamentum flavum hyp ertrophy and facet joint arthritis. Facet joints are wide containing air. Moderate to severe central and bilateral subarticular recess stenosis. Mild bilateral foraminal stenosis. Disc encroachment into the lateral recesses contacting the traversing L5 nerve roots bilaterally. L5-S1: Broad-based disc bulging centrally contacting the ventral thecal sac. There is slight contact on the LEFT S1 nerve root. Mild bilateral foraminal stenosis. Stable LEFT adrenal adenoma measuring 18 x 15 mm. Mild atherosclerosis abdominal aorta. CT/CT lumbar spine wo con* [id number] IMPRESSION: 1. Advanced degenerative disc disease and facet disease at L4-5. 2. Moderate to severe central and bilateral subarticular recess stenosis at L4 -5 with contact on the traversing L5 nerve roots bilaterally. Mild foraminal st enosis. Significant progression of stenosis at this level since the prior study . 3. L4-5 facet joints are widened. This may result in some instability. 4. Mild disc bulging at L5-S1 with minimal contact on the LEFT S1 nerve root a nd mild foraminal narrowing. 5. Small LEFT paracentral and RIGHT foraminal disc protrusions at L3-4. Mild e ncroachment upon the central canal and lateral recesses. Slightly greater encro achment upon the LEFT traversing L4 nerve root.
== END 2021-07-30 14:58 | disposition home or self-care (01) ==
LOC: RAD 14:59
PROVIDERS: PCP Family Medicine; Visit Provider Nurse Practitioner
DX: M47.896 Other spondylosis, lumbar region (principal); M54.50 Low back pain, unspecified
CPT/HCPCS: 72120; 72131

== ENCOUNTER 2021-10-08 08:20 | Outpatient (CLI) | payer MEDICARE, MEDICAID, SELFPAY ==
--- NOTE | 2021-10-08 08:45 | USCV_ITS ---
Peggy Tejada Age: 60 Gender: F : 1960 Exam Date: 10/08/2021 08:43 Ordering Phys: Jeronimo Moreira M.D ([email or web address]) Technologist: Indy Fair Exam Location: [facility] Indication: SOB, cardiomyopathy BP: 145 / 70 HR: 56 Rhythm: Sinus Technical Quality: Good MEASUREMENTS (Male / Female) Normal Values 2D ECHO LV Diastolic Diameter PLAX 5.2 cm 4.2 - 5.9 / 3.9 - 5.3 cm LV Systolic Diameter PLAX 3.6 cm IVS Diastolic Thickness 0.9 cm 0.6 - 1.0 / 0.6 - 0.9 cm IVS Systolic Thickness 1.3 cm LVPW Diastolic Thickness 1.0 cm 0.6 - 1.0 / 0.6 - 0.9 cm LVPW Systolic Thickness 1.3 cm LVOT Diameter 2.1 cm LV Ejection Fraction 2D Teich 58.8 % LV Ejection Fraction MOD 2C 64.1 % LV Ejection Fraction 2C AL 63.9 % LA Diameter 2.3 cm LA Width 3.7 cm LA Height 4.2 cm RA Width 2.2 cm RA Height 4.4 cm Aorta at Sinotubular Diameter 3.3 cm IVC Diameter 1.9 cm M-MODE MV E Point Septal Separation 1.0 cm DOPPLER AV Peak Velocity 105.0 cm/s LVOT Peak Velocity 92.0 cm/s AV Area Cont Eq vti 3.0 cm squared AV Area Cont Eq pk 3.0 cm squared MV Peak Velocity 90.0 cm/s MV Area PHT 2.7 cm squared Mitral E to A Ratio 0.8 MV E' Velocity 36.0 cm/s Mitral E to MV E' Ratio 10.0 Mitral E to LV E' Lateral Ratio 7.8 Mitral E to LV E' Septal Ratio 14.0 TR Peak Velocity 195.5 cm/s TR Peak Gradient 15.3 mmHg Right Atrial Pressure 3.0 mmHg Pulmonary Artery Systolic Pressu 18.3 mmHg RV Acceleration Time 0.1 s RV Ejection Time 0.3 s RV AcT/ET 0.3 FINDINGS Left Ventricle Left ventricle is normal in size. LV systolic function is borderline normal with EF of 50 to 55%%. No regional wall motion abnormalities are seen. Grade 1 diastolic dysfunction. Right Ventricle Normal in size and function Right Atrium Normal in size Left Atrium Normal in size Mitral Valve Structurally normal mitral valve. Trace mitral regurgitation. No significant stenosis. Aortic Valve Grossly normal. No significant stenosis. Trace aortic regurgitation. Tricuspid Valve Trace tricuspid regurgitation. Insufficient TR jet to calculate RVSP Pulmonic Valve Not well-visualized. Trace pulmonic regurgitation Pericardium Normal Aorta Normal in size IVC CONCLUSIONS LV systolic function is borderline normal with EF of 50 to 55%. Grade 1 diastolic dysfunction. Trace mitral regurgitation. Trace pulmonic regurgitation Trace aortic regurgitation. Compared to prior echocardiogram from 2019, LV systolic function appears to have slightly improved. Jeronimo Moreira MD (Electronically Signed) Final Date: 16 October 2021 12:19 S
== END 2021-10-08 08:21 | disposition home or self-care (01) ==
LOC: RAD 08:22
PROVIDERS: PCP Family Medicine; Visit Provider Internal Medicine
DX: R06.02 Shortness of breath (principal); I42.9 Cardiomyopathy, unspecified; I08.0 Rheumatic disorders of both mitral and aortic valves
CPT/HCPCS: 93306

== ENCOUNTER 2021-11-18 15:34 | Emergency (ER) | payer MEDICARE, MEDICAID, SELFPAY ==
[2021-11-18 15:35] VITALS: BP 122/71; PULSE 52; RESP 21; TEMP 36.2; O2SAT 99; BMI 35.6
--- NOTE | 2021-11-18 15:46 | XRR_ITS ---
PROCEDURE INFORMATION: Exam: XR Chest Exam date and time: 11/18/2021 4:29 PM Age: 60 years old Clinical indication: Other: Epigastric pain TECHNIQUE: Imaging protocol: Radiologic exam of the chest. Views: 1 view. COMPARISON: 1. CR XR chest 1V portable [id number] 02/23/2021 11:43 AM 2. CR XR ribs LT mn 3V w CXR1V [id number] 06/08/2018 4:35 PM FINDINGS: Lungs: There is a 2 cm sized nodule left upper lobe overlapping the anterolateral left 2nd rib. This is new compared with 06/08/2018. No focal infiltrate is identified. Pleural spaces: Unremarkable. No pleural effusion. No pneumothorax. Heart/Mediastinum: Heart is within normal limits of size. Bones/joints: Unremarkable XR/XR chest 1V portable [id number] IMPRESSION: Question of new left upper lobe pulmonary nodule. Further evaluation with CT scanning is suggested.
--- NOTE | 2021-11-18 15:46 | ECG_ITS ---
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 Measurements Intervals [place] Rate: 53 P: 16 AL: 188 QRS: 83 QRSD: 105 T: 21 QT: 447 QTc: 420 Interpretive Statements SINUS BRADYCARDIA Compared to ECG 01/11/2021 15:19:34 Sinus rhythm no longer present Left-axis deviation no longer present Electronically Signed On 11-18-2021 20:55:40 CDT by Vika Riley M.D. [email or web address] acquired by [email or web address]/[id number]
[2021-11-18 16:15] VITALS: BP 157/117; PULSE 52; RESP 16; O2SAT 100
[2021-11-18 16:26] LABS: Basophils % 0.4 %; Eosinophils # 0.1 10^3/uL (0.0-0.8); Eosinophils % 1.9 %; Hematocrit 39.5 % (37.0-47.0); Hemoglobin 12.5 g/dL (11.5-15.3); Lymphocytes # 1.3 10^3/uL (0.8-4.8); Lymphocytes % 18.5 %; Mean Corpuscular HGB Conc 31.6 g/dL (30.0-36.0); Mean Corpuscular Volume 94.7 fl (81-99); Mean Platelet Volume 9.5 fL (7.4-10.4); Monocytes # 0.5 10^3/uL (0.2-0.9); Monocytes % 7.7 %; Neutrophils # 4.89 10^3/uL (1.8-7.7); Neutrophils % 71.1 %; Nucleated Red Blood Cells % 0 %; Platelet Count 277 10^3/cmm (130-400); Red Blood Count 4.17 10^6/uL (4.1-5.3); Red Cell Distribution Width 12.7 % (12.1-15.1); White Blood Count 6.9 10^3/uL (4.0-10.0)
[2021-11-18 16:29] LABS: Add Urine Microscopic? NO; Charge for UA Resulting for Rev
[2021-11-18 16:34] LABS: Bilirubin Urine Neg (Negative); Blood Urine Neg (Negative); Glucose Urine UA Norm (Normal); Ketones Urine Negative (Negative); Leukocyte Esterase Urine Negative (Negative); Nitrate Urine Negative (Negative); Protein Urine Neg (Negative); Urine Appearance Clear (CLEAR); Urine Color Yellow (Yellow); Urobilinogen Urine Norm (Negative); pH Urine 5 (5-7)
--- NOTE | 2021-11-18 16:55 | ED_ITS ---
Documented by User: Manoj Joseph DO 11/26/21 07:00 HPI - Abdominal Pain General: Chief Complaint: Abdominal Pain Stated Complaint: abd pain Time Seen by Provider: 11/18/21 15:49 Source: patient Mode of arrival: EMS Limitations: no limitations History of Present Illness: 60-year-old female presents to the emergency room with complaints of epigastric pain. It began suddenly today radiates up into the chest. She denies any vomiting no hematemesis no coffee-ground emesis she has been very nauseous. Occasionally she felt a tight sensation in her chest and some shortness of breath. She denies any dysuria urgency or frequency no fever sweats or chills no productive cough MD elicited complaint: abdominal pain Pertinent past history: none Onset (ago): hour(s) Pain Consistency: constant Location: Epigastric Severity: moderate Quality: cramping Radiation: chest Exacerbating factors: nothing Relieving factors: nothing Associated Symptoms: Reports GI cramping, nausea and poor appetite; Denies anorexia, belching, bloating, change in bowel habits, change in stool character, chills, coffee ground emesis, constipation, diarrhea, dyspepsia, dysuria, excessive flatus, fever(s), heartburn, hematochezia, hematuria, hematemesis, fecal incontinence, loose stools, melena, syncope and vomiting Review of Systems Const: Denies: fever(s), chills, fatigue, malaise or night sweats ENMT: Denies: throat pain, ear or mastoid pain, nasal discharge or nasal congestion Card: Reports: chest pain; Denies: palpitations, irregular heart rhythm, edema or syncope Resp: Denies: dyspnea, productive cough or non-productive cough GI: Reports: abdominal pain, nausea and GI cramping; Denies: vomiting, hematemesis, coffee ground emesis, heartburn, diarrhea, constipation, bloating, belching, excessive flatus, fecal incontinence, change in bowel habits, change in stool character, hematochezia or melena : Denies: dysuria or hematuria Skin/Breast: Denies: rash or pruritus PFS ED PFSH: Medical History Anemia Back Pain Chronic neck and back pain Congestive heart failure Cystitis Treat with Augmentin 875 mg twice daily for 10 days she did have a previous E. coli UTI which was treated with Bactrim unfortunately organism was resistant to Bactrim. Discussed with patient first and is to return make sure bladder is clear of infection may then need to consider urodynamics and cystoscopy to further evaluate her bladder. Meantime she will maintain a b ladder diary and document her frequency urgency to be interesting to see if it is better with treatment of her cystitis. Dyslipidemia Encounter for long-term use of opiate analgesic FH: cholecystectomy Laceration of both fallopian tubes Morbid obesity Nonischemic cardiomyopathy Opioid contract exists Seizures Sleep apnea Surgical History History of colon resection Status post partial hysterectomy GUY with O Dr. Husain 2003 Status post small bowel resection Family History Mother Cancer Colon cancer Grandmother Cancer Breast Other CAD (coronary artery disease) Diabetes Social History Smoking and tobacco status: never smoked Second hand smoke exposure: Yes Smoking risk assessment/counseling performed?: No Alcohol intake: current Alcohol intake frequency: holidays/special occasions o nly Alcohol type: wine and other History of recent travel: No Physical Exam Const: GENERAL APPEARANCE: cooperative and comfortable ORIENTATION/CONSCIOU SNESS: Yes awake, Yes oriented to person, Yes oriented to place and Yes oriented to time HENMT: COMMON NORMALS: normocephalic, atraumatic, hearing grossly normal bilaterally, external ears normal, EAC's normal, TM's normal bilaterally, Normal nasal mucous membranes and turbinates present, moist oral mucous membranes and oropharynx normal HEAD & SCALP: normocephalic and atraumatic NOSE: Normal nasal mucous membranes and turbinates present EXTERNAL EAR: Yes external ears normal EXTERNAL AUDITORY CANAL: EAC's normal TYMPANIC MEMBRANE: TM's normal bilaterally Eye: COMMON NORMALS: Equal, round and reactive pupils present, EOMs intact bilaterally, conjunctivae normal and no scleral icterus CONJUNCTIVA: Yes conjunctivae normal PUPIL: Yes Equal, round and reactive pupils present Neck/C-Spine: COMMON NORMALS: full ROM, no lymphadenopathy, supple and no JVD Lymph: LYMPHATIC: no lymphadenopathy noted and no lymphedema noted Resp: COMMON NORMALS: normal respiratory effort, No retractions, No use of accessory muscles and clear to auscultation bilaterally AUSCULTATION: clear to auscultation bilaterally Cardio: COMMON NORMALS: no JVD, regular rate, regular rhythm and No murmurs present (Cardio) RATE: regular rate RHYTHM: regular rhythm GI: COMMON NORMALS: Soft to palpation and No hepatosplenomegaly present AUSCULTATION: Yes normoactive bowel sounds PALPATION: Yes Soft to palpation, No Tenderness to palpation present (GI), No Guarding due to palpation present (GI) and Yes No hepatosplenomegaly present Extremity: COMMON NORMALS: normal to inspection, capillary refill normal, no clubbing, cyanosis or edema, no calf tenderness and no pedal edema Neuro: SENSORIUM/ORIENTATION: Yes oriented to person, Yes oriented to place and Yes oriented to time Skin: COMMON NORMALS: no rashes or lesions noted GENERAL SKIN EXAM: no rashes or lesions noted Course Vital Signs: Vital signs: Vital Signs Temperature 97.1 F L 11/18/21 15:35 Pulse Rate 51 L 11/18/21 19:30 Respiratory Rate 19 H 11/18/21 19:30 Blood Pressure 149/82 11/18/21 19:30 Pulse Oximetry 100 11/18/21 19:30 Oxygen Delivery Me thod 11/18/21 19:30 MDM - Abdominal Pain Medical Decision Making . Care signed out to Dr. Avila] At change of shift. See final notes for diagnosis and disposition. Medical Records I reviewed the patient's medical records. Lab Data I reviewed the patient's lab results. : 11/18/21 16:12 11/18/21 16:12 Labs/Radiology: Radiology Impressions Chest X-Ray 11/18/21 15:46 IMPRESSION: Question of new left upper lobe pulmonary nodule. Further evaluation with CT scanning is suggested. Laboratory Results WBC 6.9 10^3/uL (4.0-10.0) 11/18/21 16:12 RBC 4.17 10^6/uL (4.1-5.3) 11/18/21 16:12 Hgb 12.5 g/dL (11.5-15.3) 11/18/21 16:12 Hct 39.5 % (37.0-47.0) 11/18/21 16:12 MCV 94.7 fl (81-99) 11/18/21 16:12 MCH 30.0 pg (28.0-34.0) 11/18/21 16:12 MCHC 31.6 g/dL (30.0-36.0) 11/18/21 16:12 RDW 12.7 % (12.1-15.1) 11/18/21 16:12 Plt Count 277 10^3/cmm (130-400) 11/18/21 16:12 MPV 9.5 fL (7.4-10.4) 11/18/21 16:12 Neut % (Auto) 71.1 % 11/18/21 16:12 Lymph % (Auto) 18.5 % 11/18/21 16:12 [place] % (Auto) 7.7 % 11/18/21 16:12 Eos % (Auto) 1.9 % 11/18/21 16:12 Baso % (Auto) 0.4 % 11/18/21 16:12 Neut # (Auto) 4.89 10^3/uL (1.8-7.7) 11/18/21 16:12 Lymph # (Auto) 1.3 10^3/uL (0.8-4.8) 11/18/21 16:12 [place] # (Auto) 0.5 10^3/uL (0.2-0.9) 11/18/21 16:12 Eos # (Auto) 0.1 10^3/uL (0.0-0.8) 11/18/21 16:12 Baso # (Auto) 0.0 10^3/uL (0.0-0.1) 11/18/21 16:12 Nucleated RBC % (auto) 0 % 11/18/21 16:12 Nucleated RBCs # 0.0 /100WBC 11/18/21 16:12 Sodium 136 mmol/L (136-145) 11/18/21 16:12 Potassium 4.5 mmol/L (3.5-5.1) 11/18/21 16:12 Chloride 100 mmol/L (98-107) 11/18/21 16:12 Carbon Dioxide 26 mmol/L (22-29) 11/18/21 16:12 Anion Gap 14.5 (5-19) 11/18/21 16:12 BUN 13 mg/dL (6-20) 11/18/21 16:12 Creatinine 0.7 mg/dL (0.5-0.9) 11/18/21 16:12 GFR Calculation 85.6 mL/min (90-130) L 11/18/21 16:12 Glucose 96 mg/dL (65-115) 11/18/21 16:12 Calculated Osmolality 282 mOsm/kg (285-295) L 11/18/21 16:12 Calcium 9.1 mg/dL (8.5-10.5) 11/18/21 16:12 Total Bilirubin 0.3 mg/dL (0.15-1.2) 11/18/21 16:12 AST 24 U/L (0-32) 11/18/21 16:12 ALT 16 U/L (0-33) 11/18/21 16:12 Alkaline Phosphatase 147 U/L (35-105) H 11/18/21 16:12 Troponin T Baseline 6 ng/L (0-10) 11/18/21 16:12 Troponin T 120 Minute 6.00 ng/L (0-10) 11/18/21 18:04 Delta Troponin T 0 ABS# (0-10) 11/18/21 18:04 Total Protein 7.2 g/dL (6.6-8.7) 11/18/21 16:12 Albumin 4.3 g/dL (3.5-5.2) 11/18/21 16:12 Globulin 2.9 g/dL (1.3-4.6) 11/18/21 16:12 Lipase 50 U/L (13-60) 11/18/21 16:12 Urine Color Yellow (Yellow) 11/18/21 16:10 Urine Appearance Clear (CLEAR) 11/18/21 16:10 Urine pH 5 (5-7) 11/18/21 16:10 Ur Specific [place] 1.020 (1.005-1.030) 11/18/21 16:10 Urine Protein Neg (Negative) 11/18/21 16:10 Urine Glucose (UA) Norm (Normal) 11/18/21 16:10 Urine Ketones Negative (Negative) 11/18/21 16:10 Urine Blood Neg (Negative) 11/18/21 16:10 Urine Nitrate Negative (Negative) 11/18/21 16:10 Urine Bilirubin Neg (Negative) 11/18/21 16:10 Urine Urobilinogen Norm mg/dL (Negative) 11/18/21 16:10 Ur Leukocyte Esterase Negative (Negative) 11/18/21 16:10 Discharge Plan Discharge Patient Disposition: Home Clinical Impression: Epigastric abdominal pain, Atypical chest pain Condition: Stable Prescriptions: New ondansetron 4 mg tablet,disintegrating 4 mg PO Q8H PRN (Reason: nausea and vomiting) Qty: 15 0RF Carafate 1 gram tablet 1 g PO TID 28 Days Qty: 84 0RF No Action nitroglycerin 0.4 mg tablet, sublingual 0.4 mg SUBLINGUAL Q5M PRN (Reason: Chest Pain) Rx Instructions: do not exceed 3 doses per episode ondansetron HCl 4 mg tablet 4 mg PO PRN levetiracetam 750 mg tablet 1,500 mg PO BID levothyroxine 100 mcg capsule See Rx Instructions .ROUTE .COMPLEX Rx Instructions: 100 mcg PO ON MON,,MON,,MON lamotrigine 25 mg tablet 100 mg PO BID aspirin [Vicki Chewable Aspirin] 81 mg tablet,chewable 81 mg PO BID diphenhydramine HCl [Benadryl] 25 mg capsule 25 mg PO ONCE PRN (Reason: itching) Qty: 1 0RF Rx Instructions: 1 hour prior to procedure along with her last dose of prednisone. hydrocodone-acetaminophen 5-325 mg tablet 1 tab PO QID PRN (Reason: pain) 30 Days Qty: 120 0RF Rx Instructions: fill on or after 04/11/21 lisinopril 10 mg tablet 10 mg PO BID Qty: 90 2RF gabapentin 800 mg tablet 800 mg PO QID 30 Days Qty: 120 1RF Rx Instructions: furosemide [Lasix] 20 mg tablet 20 mg PO BID Qty: 180 2RF carvedilol 12.5 mg tablet 12.5 mg PO BID Qty: 180 3RF omeprazole 20 mg capsule,delayed release(DR/EC) 40 mg PO DAILY levothyroxine 88 mcg tablet See Rx Instructions .ROUTE .COMPLEX Rx Instructions: 88 MCG PO ON SAT AND SUN fluticasone propionate 50 mcg/actuation spray,suspension 1 spray INTRANASAL DAILY Discharge Orders: Discharge ED (Routine); Ordered 11/18/21 Ordered By: Rodrigo Harrington Referrals: Patrice Juan MD [Primary Care Provider] - Discharge Diet: Advance as tolerated and Clear Liquid Discharge Activity: Increase activity as tolerated Patient Instructions: Chest Pain (ED), Abdominal Pain (ED), Pain Management Activity Restrictions/Additional Instructions: Thank you for visiting the emergency department. You were seen evaluated for epigastric and chest discomfort. The exact cause of your symptoms is unclear though does not appear to need hospitalization at this time. Please follow-up with your primary care provider. I will message case management for referral for further cardiac testing. Return to the emergency department for worsening symptoms or anything else that you are concerned about a feel needs emergency department evaluation. Sign Out Sign Out Data: Patient Sign Out occurred on 11/18/21 at 18:38. Patient's care was discussed, and care was transferred from to Rodrigo Harrington MD. Coding Level of Care Code ED Sample Shoe Inspector And Reworker for Chg Fwd Exam Comprehensive Documented by User: Rodrigo Harrington MD 11/28/21 21:00 HPI - Abdominal Pain General: Chief Complaint: Abdominal Pain Stated Complaint: abd pain Time Seen by Provider: 11/18/21 15:49 [facility] ED PFSH: Medical History Anemia Back Pain Chronic neck and back pain Congestive heart failure Cystitis Treat with Augmentin 875 mg twice daily for 10 days she did have a previous E. coli UTI which was treated with Bactrim unfortunately organism was resistant to Bactrim. Discussed with patient first and is to return make sure bladder is clear of infection may then need to consider urodynamics and cystoscopy to further evaluate her bladder. Meantime she will maintain a bladder diary and document her frequency urgency to be interesting to see if it is better with treatment of her cystitis. Dyslipidemia Encounter for long-term use of opiate analgesic FH: cholecystectomy Laceration of both fallopian tubes Morbid obesity Nonischemic cardiomyopathy Opioid contract exists Seizures Sleep apnea Surgical History History of colon resection Status post partial hysterectomy GUY with USO Dr. Husain 2003 Status post small bowel resection Family History Mother Cancer Colon cancer Grandmother Cancer Breast Other CAD (coronary artery disease) Diabetes Social History Smoking and tobacco status: never smoked Second hand smoke exposure: Yes Smoking risk assessment/counseling performed?: No Alcohol intake: current Alcohol intake frequency: holidays/special occasions only Alcohol type: wine and other History of recent travel: No Course Vital Signs: Vital signs: Vital Signs Temperature 97.1 F L 11/18/21 15:35 Pulse Rate 51 L 11/18/21 19:30 Respiratory Rate 19 H 11/18/21 19:30 Blood Pressure 149/82 11/18/21 19:30 Pulse Oximetry 100 11/18/21 19:30 Oxygen Delivery Me thod 11/18/21 19:30 MDM - Abdominal Pain Medical Decision Making . Care signed out to [Juany] At change of shift. See final notes for di agnosis and disposition. Patient care handoff received from Dr. Joseph pending completion of ED e valuation. Laboratory studies, imaging, EKG reviewed. Results of ED evaluation discussed with the patient. I also discussed chest x-ray findings and need for outpatient CT which can be ordered in the outpatient setting by PCP. Patient comfortable with further outpatient testing. Satisfactory for discharge with strict return precautions given. Rodrigo Harrington MD Emergency Medicine Lab Data : 11/18/21 16:12 11/18/21 16:12 Labs/Radiology: Radiology Impressions Chest X-Ray 11/18/21 15:46
[2021-11-18 16:56] LABS: Troponin(5th) Baseline 6 ng/L (0-10)
[2021-11-18 16:58] LABS: Alanine Aminotransferase 16 U/L (0-33); Albumin Level 4.3 g/dL (3.5-5.2); Alkaline Phosphatase 147 U/L (35-105); Aspartate Amino Transferase 24 U/L (0-32); Blood Urea Nitrogen 13 mg/dL (6-20); Calcium 9.1 mg/dL (8.5-10.5); Carbon Dioxide 26 mmol/L (22-29); Chloride 100 mmol/L (98-107); Creatinine Clr Calc Pharmacy 96.3884; Globulin 2.9 g/dL (1.3-4.6); Glomerular Filtration Rate 85.6 mL/min (90-130); Glucose 96 mg/dL (65-115); Lipase 50 U/L (13-60); Osmolality Calculated 282 mOsm/kg (285-295); Sodium 136 mmol/L (136-145); Total Bilirubin 0.3 mg/dL (0.15-1.2); Total Protein 7.2 g/dL (6.6-8.7)
[2021-11-18 17:00] VITALS: BP 137/76; PULSE 48; RESP 16; O2SAT 96
[2021-11-18 17:03] LABS: Anion Gap 14.5 (5-19); Potassium 4.5 mmol/L (3.5-5.1)
[2021-11-18 17:30] VITALS: BP 133/82; PULSE 50; RESP 16; O2SAT 99
--- NOTE | 2021-11-18 17:39 | ECG_ITS ---
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 Measurements Intervals [place] Rate: 50 P: 34 [place]: 192 QRS: -26 QRSD: 104 T: 16 QT: 451 QTc: 414 Interpretive Statements SINUS BRADYCARDIA BORDERLINE LEFT AXIS DEVIATION [QRS AXIS < -20] Compared to ECG 11/18/2021 16:27:25 No significant changes Electronically Signed On 11-18-2021 21:07:30 CDT by Vika Riley M.D. [email or web address] residential [email or web address] Networksmercy health kings mills [email or web address]/OM/[id number]
[2021-11-18 19:10] LABS: Troponin 5 2HR Delta 0 ABS# (0-10)
[2021-11-18 19:30] VITALS: BP 149/82; PULSE 51; RESP 19; O2SAT 100
[2021-11-18] MEDS: lidocaine 2% viscous 15 ML, aluminum-mag hydrox-simethicon 30 ML, sucralfate oral liq 1 GM PO (19:35)
--- NOTE | 2021-11-19 11:05 | DCPLANNER ---
Addendum entered by Patience Horner 02/15/22 14:04: Patient had a stress test scheduled - patient did attend appointment Addendum entered by Patience Horner 11/19/21 14:42: Patient called clinical case manager back stating that she did want the stress test ordered and confirmed that her primary care physician is Dr. Juan at [facility]. construction project manager faxed signed order to centralized scheduling, who will call patient with appointment information. construction project manager also sent patients primary care physician notification that the ER physician ordered a stress test out of the ER. Original Note: construction project manager had message to schedule an outpatient stress test for patient. construction project manager called patient at phone number [phone] to confirm that patient wanted to have the test scheduled and to confirm who patient sees for primary care physician. construction project manager unable to speak with patient at this time, a voicemail was left for patient to return case making machine operator phone call.
== END 2021-11-18 20:16 | disposition home or self-care (01) ==
PROVIDERS: Physician Assistant; Emergency Provider Emergency Medicine; PCP Family Medicine
DX: R10.13 Epigastric pain (principal); R07.89 Other chest pain; Z79.82 Long term (current) use of aspirin; Z77.22 Contact with and (suspected) exposure to environmental tobacco smoke (acute) (chronic); I50.9 Heart failure, unspecified; E78.5 Hyperlipidemia, unspecified
CPT/HCPCS: 36415; 71045; 80053; 81003; 83690; 84484; 85025; 93005; 99285

== ENCOUNTER 2021-12-21 14:02 | Outpatient (CLI) | payer MEDICARE, MEDICAID, SELFPAY ==
--- NOTE | 2021-12-21 14:22 | CT_ITS ---
WS: [id number] CT CHEST TECHNIQUE: Noncontrast CT of the chest with coronal and sagittal reformatted images. CLINICAL INFORMATION: PULMONARY NODULE COMPARISON: Chest radiograph November 19, 2019 DLP: 652.[address] scans at [facility] use at least one of these dose optimization techniques: automated e xposure control; mA and/or kV adjustment per patient size (includes targeted exams where dose is matc hed to clinical indication); or iterative reconstruction. FINDINGS: 1.7 CM pulmonary nodule in the LEFT upper lobe corresponds to the recent chest x-ray findings. Findin gs are nonspecific but neoplasm not excluded. Recommend further evaluation with PET/CT. This is not e asily accessible by CT-guided biopsy due to location in the lung apex and deep to the axilla. Normal caliber thoracic aorta. Mild aortic calcification. No mediastinal or hilar lymphadenopathy. No axillary lymphadenopathy. Cholecystectomy clips. Normal GE junction. RIGHT adrenal gland is normal. LEFT adrenal adenoma measur ing 15 mm. Hypertrophic changes lower thoracic spine. CT/CT chest wo con [id number] IMPRESSION: 1. Lobulated LEFT upper lobe nodule abutting the pleura nonspecific but neopla sm not excluded. This measures 1.7 CM. Recommend further evaluation with PET/CT .This is not easily accessible by CT-guided biopsy due to location in the lung apex and deep to the axilla. 2. No other suspicious pulmonary parenchymal abnormalities. 3. No mediastinal or hilar lymphadenopathy. 4. Cholecystectomy clips. 5. LEFT adrenal adenoma measuring 15 mm. 0
== END 2021-12-21 14:03 | disposition home or self-care (01) ==
LOC: RAD 14:03
PROVIDERS: PCP Family Medicine; Visit Provider Family Medicine
DX: R91.1 Solitary pulmonary nodule (principal); D35.02 Benign neoplasm of left adrenal gland; Z90.49 Acquired absence of other specified parts of digestive tract
CPT/HCPCS: 71250

== ENCOUNTER 2022-01-05 14:34 | Outpatient (CLI) | payer MEDICARE, MEDICAID, SELFPAY ==
--- NOTE | 2022-01-05 14:54 | XR_ITS ---
WS: [id number] SCREENING DEXA SCAN [employer] CLINICAL INFORMATION: POSTMENOPAUSAL COMPARISON: None. FINDINGS: The L1-L4 bone mineral density measures 1.070 g/cm2. This corresponds to a T score score of -0.9 and Z score of -0.7. Left femoral neck bone mineral density measures 0.958 g/cm2. This corresponds to a T score of -0.4 an d Z score of -0.2. Right femoral neck bone mineral density measures 0.934 g/cm2. This corresponds to a T score -0.6of an d Z score of -0.4. Mean femoral neck bone mineral density measures 0.946 g/cm2. This corresponds to a T score of -0.5 an d Z score of -0.3. XR/XR DEXA axial skeleton* [id number] IMPRESSION: Normal bone mineralization lumbar spine approaching osteopenia. Normal bone min eralization femoral necks. Patient's FRAX calculated 10 year probability for major osteoporotic fracture i s 11.3 % and osteoporotic hip fracture is 0.6%.
== END 2022-01-05 14:35 | disposition home or self-care (01) ==
LOC: RAD 14:34
PROVIDERS: PCP Family Medicine; Visit Provider Family Medicine
DX: Z78.0 Asymptomatic menopausal state (principal)
CPT/HCPCS: 77080

== ENCOUNTER 2022-01-13 07:31 | Outpatient (CLI) | payer MEDICARE, MEDICAID, SELFPAY ==
[2022-01-13 07:59] VITALS: BMI 35.9
--- NOTE | 2022-01-13 08:10 | ECG_ITS ---
[facility] Test Date: 2022-01-13 Pat Name: Peggy Tejada Department: Room: Gender: Female Parts Technician: : 1960 Requested By: Rodrigo Harrington Order Number: [id number] Everardo MD: Jeronimo Moreira M.D. Interpretive Statements NAME OF STUDY: LEXISCAN SESTAMIBI STRESS TEST INDICATION: [Atypical Chest Pain, ] Procedure: At the baseline, the blood pressure was 116/79 mmHg with a heart rate of 56 bpm. The electrocardiogram showed normal sinus rhythm,left axis deviation with normal ST and T's. The Lexiscan was infused over a period of 20 seconds. A total of 0.4 mg of Lexiscan was infused. The stress phase was continued for a total of 5 minutes. Heart rate was at the end of stress phase was 84bpm and a blood pressure of 107/71 mmHg. The EKG at the peak infusion revealed normal sinus rhythm with no significant ST-T wave changes. Sestamibi was injected 20 seconds after the Lexiscan infusion. Blood pressure at the end of recovery phase was 109/70 mmHg with a heart rate of 83 bpm. Conclusion: 1. Normal EKG response to Lexiscan infusion 2. No Lexiscan induced chest pain or cardiac arrhythmia. 3. Normal blood pressure and heart rate response. 4. Sestamibi/sestamibi perfusion scan pending; see separate report. Electronically Signed On 01-30-2022 13:26:12 FRUIT AND VEGETABLE PACKER by Jeronimo Moreira M.D. [id number]
--- NOTE | 2022-01-13 08:10 | NMCV_ITS ---
NM berenice perf SPECT r/s* [id number] Peggy Tejada Age: 61 Gender: F : 1960 Exam Date: 01/13/2022 08:55 Ordering Phys: Rodrigo Harrington MD Technologist: LAI Bach Exam Location: [facility] Indications: CHEST PAIN STRESS TEST Please see separate stress test report in [facility] for full findings IMAGE PROTOCOL Rest/Stress 1 Lexiscan Day Radiopharmaceutical Dose (mCi) Administration Site Administered by Rest: Tc-99m 10.7 IV LAI Sauer Sestamibi Stress:Tc-99m 32.4 IV LAI Suaer Sestamibi Rest: 13-Jan-2022 60 Discovery 630 Stress: 13-Jan-2022 30 Discovery 630 0.4mg Lexiscan. Images obtained in supine and prone position. SPECT RESULTS Technical Quality: Excellent Raw Data Analysis: Normal Image Corrections: No attenuation or motion correction applied Summed Stress Score: 16 Summed Rest Score: 4 Summed Difference Score: 12 PERFUSION FINDINGS There are large areas of partially reversible perfusion defects noted in multivessel distribution involving apical, apical anterior, anterolateral, inferolateral and inferior mayfield. This is consistent with prior infarcts in all 3 vessels distribution with significant areas of vicki-infarct ischemia. FUNCTIONAL RESULTS (calculated via Gated SPECT) Stress Image LV EF (%): 42 Stress EDV (mL):85 TID: 0.7 Stress ESV (mL):49 FUNCTIONAL FINDINGS: LV systolic function is reduced. IMPRESSIONS 1. Abnormal myocardial perfusion imaging with large areas of prior infarct noted distribution of all 3 vessels with significant vicki-infarct ischemia. 2. LV systolic function is mildly reduced with EF of 42%. Mild global hypokinesis is seen Jeronimo Moreira MD (Electronically Signed) Final Date: 13 January 2022 11:58 S
[2022-01-13] MEDS: ondansetron 2 mg/ML SDV 2 mL 4 MG IVP (09:34)
[2022-01-13] MEDS: regadenoson 0.4 Mg/5 ml Syringe IVP (09:34)
[2022-01-13 09:39] VITALS: BP 109/70; PULSE 80
== END 2022-01-13 07:32 | disposition home or self-care (01) ==
LOC: CDL 07:32
PROVIDERS: PCP Family Medicine; Visit Provider Emergency Medicine
DX: R07.89 Other chest pain (principal); R06.02 Shortness of breath
CPT/HCPCS: 36415; 78452; 93017; 96374; 96375; A9500; J2405; J2785

== ENCOUNTER 2022-02-07 17:27 | Emergency (ER) | payer MEDICARE, MEDICAID, SELFPAY ==
--- NOTE | 2022-02-07 17:49 | ECG_ITS ---
[facility] Test Date: 2022-02-07 Pat Name: Peggy Tejada Department: Room: Gender: Female Hearing Stenographer: : 1960 Requested By: Soto Flores Order Number: [id number] Everardo MD: Edwin Pablo M.D. Measurements Intervals [place] Rate: 60 P: 55 NC: 188 QRS: -26 QRSD: 105 T: 49 QT: 404 QTc: 406 Interpretive Statements SINUS RHYTHM BORDERLINE LEFT AXIS DEVIATION [QRS AXIS < -20] LOW QRS VOLTAGE IN PRECORDIAL LEADS [QRS DEFLECTION < 1.0 mV IN CHEST LEADS] PATTERN CONSISTENT WITH PULMONARY DISEASE INTERPRETATION BASED ON A DEFAULT AGE OF 40 YEARS Compared to ECG 11/18/2021 17:39:53 Low QRS voltage now present Sinus bradycardia no longer present Electronically Signed On 02-08-2022 9:27:06 WEIGHT INSPECTOR by Edwin Pablo M.D. [id number]
--- NOTE | 2022-02-07 17:49 | XRR_ITS ---
PROCEDURE INFORMATION: Exam: XR Chest Exam date and time: 02/07/2022 5:53 PM Age: 61 years old Clinical indication: Other: Seizure; Additional info: Cp TECHNIQUE: Imaging protocol: Radiologic exam of the chest. Views: 1 view. COMPARISON: CT chest con [id number] 12/21/2021 2:30 PM FINDINGS: Lungs: Unremarkable. No consolidation. Pleural spaces: Unremarkable. No pleural effusion. No pneumothorax. Heart/Mediastinum: Unremarkable. No cardiomegaly. Bones/joints: Unremarkable. XR/XR chest 1V portable [id number] IMPRESSION: No acute findings.
[2022-02-07 18:25] VITALS: BMI 37.9
[2022-02-07 18:27] VITALS: BP 112/67; PULSE 57; RESP 19; O2SAT 100
--- NOTE | 2022-02-07 18:34 | W.ED.CHESTPA ---
HPI - Chest Pain General: Chief Complaint: Chest Pain Stated Complaint: chest pain weakness, arm pain Time Seen by Provider: 02/07/22 17:43 History of Present Illness: 61-year-old female presents with seizure. Patient has a seizure history. She also reports that now she is having some associated chest pain. Patient has a history cardiac disease in the past., Nonspecific chest pain with a little mild arm pain and shortness of breath that started about an hour ago after her seizure. Patient denies any fevers, cough, vomiting or diarrhea. Patient reports that she does not have her seizures very often. I recommended that if it becomes more frequent she follows up with her primary care provider and neurologist. She should continue take her Keppra. She is stable and discharged home Associated symptoms: Reports dyspnea; Deny abdominal pain, fever(s), nausea, palpitations or vomiting Review of Systems Const: Reports: malaise; Denies: fever(s) or chills Eyes: Denies: change in vision or eye discomfort Card: Reports: chest pain; Denies: palpitations, irregular heart rhythm or lightheadedness Resp: Reports: dyspnea; Denies: productive cough or non-productive cough GI: Denies: abdominal pain, nausea, vomiting or diarrhea : Denies: flank pain or difficulty voiding Musc: Denies: neck pain or back pain Skin/Breast: Denies: rash Neuro: Reports: seizure-like activity [facility] PFSH: Medical History Anemia Back Pain Chronic neck and back pain Congestive heart failure Cystitis Treat with Augmentin 875 mg twice daily for 10 days she did have a previous E. coli UTI which was treated with Bactrim unfortunately organism was resistant to Bactrim. Discussed with patient first and is to return make sure bladder is clear of infection may then need to consider urodynamics and cystoscopy to further evaluate her bladder. Meantime she will maintain a bladder diary and document her frequency urgency to be interesting to see if it is better with treatment of her cystitis. Dyslipidemia Encounter for long-term use of opiate analgesic FH: cholecystectomy Laceration of both fallopian tubes Morbid obesity Nonischemic cardiomyopathy Opioid contract exists Seizures Sleep apnea Surgical History History of colon resection Status post partial hysterectomy GUY with USO Dr. Husain 2003 Status post small bowel resection Family History Mother Cancer Colon cancer Grandmother Cancer Breast Other CAD (coronary artery disease) Diabetes Social History Smoking and tobacco status: never smoked Second hand smoke exposure: Yes Smoking risk assessment/counseling performed?: No Alcohol intake: current Alcohol intake frequency: holidays/special occasions only Alcohol type: wine and other History of recent travel: No Physical Exam Const: COMMON NORMALS: no acute distress, patient oriented x3 and alert Eye: COMMON NORMALS: Equal, round and reactive pupils present and EOMs intact bilaterally PUPIL: Yes Equal, round and reactive pupils present Chest: COMMONS NORMALS: normal inspection of the chest Resp: COMMON NORMALS: normal respiratory effort, No use of accessory muscles and clear to auscultation bilaterally AUSCULTATION: clear to auscultation bilaterally Cardio: COMMON NORMALS: regular rate and regular rhythm RATE: regular rate RHYTHM: regular rhythm GI: COMMON NORMALS: Soft to palpation and non-tender PALPATION: Yes Soft to palpation Neuro: COMMON NORMALS: patient oriented x3, moves all extremities and no focal motor deficits SENSORIUM/ORIENTATION: Yes alert Psych: COMMON NORMALS: mental status grossly normal, Normal thought process present and cooperative THOUGHT PROCESS: Normal thought process present Skin: COMMON NORMALS: no rashes or lesions noted GENERAL SKIN EXAM: no rashes or lesions noted Course Vital Signs: Vital signs: Vital Signs Pulse Rate 59 L 02/07/22 19:31 Respiratory Rate 16 02/07/22 19:31 Blood Pressure 129/55 02/07/22 19:31 Pulse Oximetry 94 02/07/22 19:31 Oxygen Delivery Me thod 02/07/22 18:27 MDM - Chest Pain Medical Decision Making Patient with a known seizure history. Patient also a history of chest pain. Patient had 2 negative EKGs, 2 negative troponins, as well as a negative x-ray.. Patient is back to her baseline with no further seizure activity while here in the ER. I did discuss with her she has a slight decrease in her white blood cell count which could be indicator of possible viral loss otherwise patient stable and discharged home. Lab Data 02/07/22 18:24 02/07/22 18:24 Radiology Impressions Chest X-Ray 02/07/22 17:49 IMPRESSION: No acute findings. Laboratory Results WBC 3.6 10^3/uL (4.0-10.0) L 02/07/22 18:24 RBC 4.28 10^6/uL (4.1-5.3) 02/07/22 18: Hgb 12.6 g/dL (11.5-15.3) 02/07/22 18: Hct 39.4 % (37.0-47.0) 02/07/22 18: MCV 92.1 fl (81-99) 02/07/22 18: MCH 29.4 pg (28.0-34.0) 02/07/22 18: MCHC 32.0 g/dL (30.0-36.0) 02/07/22 18: RDW 12.8 % (12.1-15.1) 02/07/22 18: Plt Count 232 10^3/cmm (130-400) 02/07/22 18: MPV 9.6 fL (7.4-10.4) 02/07/22 18: Neut % (Auto) 40.7 % 02/07/22 18: Lymph % (Auto) 47.2 % 02/07/22 18: [place] % (Auto) 9.5 % 02/07/22 18: Eos % (Auto) 2.0 % 02/07/22 18: Baso % (Auto) 0.3 % 02/07/22 18: Neut # (Auto) 1.46 10^3/uL (1.8-7.7) L 02/07/22 18: Lymph # (Auto) 1.7 10^3/uL (0.8-4.8) 02/07/22 18: [place] # (Auto) 0.3 10^3/uL (0.2-0.9) 02/07/22 18: Eos # (Auto) 0.1 10^3/uL (0.0-0.8) 02/07/22 18: Baso # (Auto) 0.0 10^3/uL (0.0-0.1) 02/07/22 18:24 Nucleated RBC % (auto) 0 % 02/07/22 18:24 Nucleated RBCs # 0.0 /100WBC 02/07/22 18:24 Sodium 141 mmol/L (136-145) 02/07/22 18:24 Potassium 4.1 mmol/L (3.5-5.1) 02/07/22 18:24 Chloride 106 mmol/L (98-107) 02/07/22 18:24 Carbon Dioxide 26 mmol/L (22-29) 02/07/22 18:24 Anion Gap 13.1 (5-19) 02/07/22 18:24 BUN 10 mg/dL (8-23) 02/07/22 18:24 Creatinine 0.6 mg/dL (0.5-0.9) 02/07/22 18:24 GFR Calculation 102.0 mL/min (90-130) 02/07/22 18:24 Glucose 83 mg/dL (65-115) 02/07/22 18:24 Calculated Osmolality 290 mOsm/kg (285-295) 02/07/22 18:24 Calcium 9.0 mg/dL (8.5-10.5) 02/07/22 18:24 Total Bilirubin 0.4 mg/dL (0.15-1.2) 02/07/22 18:24 AST 49 U/L (0-32) H 02/07/22 18:24 ALT 34 U/L (0-33) H 02/07/22 18:24 Alkaline Phosphatase 135 U/L (35-105) H 02/07/22 18:24 Troponin T Baseline 6 ng/L (0-10) 02/07/22 18:24 Troponin T 120 Minute 6.20 ng/L (0-10) 02/07/22 19:36 Delta Troponin T 0.20 ABS# (0-10) 02/07/22 19:36 Total Protein 7.0 g/dL (6.6-8.7) 02/07/22 18:24 Albumin 4.1 g/dL (3.5-5.2) 02/07/22 18:24 Globulin 2.9 g/dL (1.3-4.6) 02/07/22 18:24 Urine Color Light yellow (Yellow) 02/07/22 18:55 Urine Appearance Clear (CLEAR) 02/07/22 18:55 Urine pH 6 (5-7) 02/07/22 18:55 Ur Specific [place] 1.005 (1.005-1.030) 02/07/22 18:55 Urine Protein Neg (Negative) 02/07/22 18:55 Urine Glucose (UA) Norm (Normal) 02/07/22 18:55 Urine Ketones Negative (Negative) 02/07/22 18:55 Urine Blood Neg (Negative) 02/07/22 18:55 Urine Nitrate Negative (Negative) 02/07/22 18:55 Urine Bilirubin Neg (Negative) 02/07/22 18:55 Urine Urobilinogen Neg mg/dL (Negative) 02/07/22 18:55 Ur Leukocyte Esterase Negative (Negative) 02/07/22 18:55 Discharge Plan Discharge Patient Disposition: Home Clinical Impression: Witnessed seizure-like activity, Chest pain Condition: Stable Prescriptions: No Action nitroglycerin 0.4 mg tablet, sublingual 0.4 mg SUBLINGUAL Q5M PRN (Reason: Chest Pain) Rx Instructions: do not exceed 3 doses per episode ondansetron HCl 4 mg tablet 4 mg PO PRN levetiracetam 750 mg tablet 1,500 mg PO BID levothyroxine 100 mcg capsule See Rx Instructions .ROUTE .COMPLEX Rx Instructions: 100 mcg PO ON MON,,MON,,FRI lamotrigine 25 mg tablet 100 mg PO BID aspirin [Vicki Chewable Aspirin] 81 mg tablet,chewable 81 mg PO BID diphenhydramine HCl [Benadryl] 25 mg capsule 25 mg PO ONCE PRN (Reason: itching) Qty: 1 0RF Rx Instructions: 1 hour prior to procedure along with her last dose of prednisone. hydrocodone-acetaminophen 5-325 mg tablet 1 tab PO QID PRN (Reason: pain) 30 Days Qty: 120 0RF Rx Instructions: fill on or after 04/11/21 lisinopril 10 mg tablet 10 mg PO BID Qty: 90 2RF gabapentin 800 mg tablet 800 mg PO QID 30 Days Qty: 120 1RF Rx Instructions: furosemide [Lasix] 20 mg tablet 20 mg PO BID Qty: 180 2RF carvedilol 12.5 mg tablet 12.5 mg PO BID Qty: 180 3RF omeprazole 20 mg capsule,delayed release(DR/EC) 40 mg PO DAILY levothyroxine 88 mcg tablet See Rx Instructions .ROUTE .COMPLEX Rx Instructions: 88 MCG PO ON SAT AND SUN fluticasone propionate 50 mcg/actuation spray,suspension 1 spray INTRANASAL DAILY ondansetron 4 mg tablet,disintegrating 4 mg PO Q8H PRN (Reason: nausea and vomiting) Qty: 15 0RF Discharge Orders: Discharge ED (Routine); Ordered 02/07/22 Ordered By: Soto Flores Referrals: Patrice Juan MD [Primary Care Provider] - Discharge Diet: Usual diet Discharge Activity: Resume usual activity Patient Instructions: Opioid Safety, Pain Management, Epilepsy (ED), Chest Pain (ED) Activity Restrictions/Additional Instructions: Please follow-up with your primary care provider in a couple days for recheck of your symptoms and further outpatient evaluation as needed Coding Level of Care Code ED Dulite Machine Bluer for Edwardog Fwd Exam Comprehensive
[2022-02-07 18:36] LABS: Basophils % 0.3 %; Eosinophils # 0.1 10^3/uL (0.0-0.8); Hematocrit 39.4 % (37.0-47.0); Hemoglobin 12.6 g/dL (11.5-15.3); Lymphocytes # 1.7 10^3/uL (0.8-4.8); Lymphocytes % 47.2 %; Mean Corpuscular Hemoglobin 29.4 pg (28.0-34.0); Mean Corpuscular Volume 92.1 fl (81-99); Mean Platelet Volume 9.6 fL (7.4-10.4); Monocytes # 0.3 10^3/uL (0.2-0.9); Monocytes % 9.5 %; Neutrophils # 1.46 10^3/uL (1.8-7.7); Neutrophils % 40.7 %; Nucleated Red Blood Cells % 0 %; Platelet Count 232 10^3/cmm (130-400); Red Blood Count 4.28 10^6/uL (4.1-5.3); Red Cell Distribution Width 12.8 % (12.1-15.1); White Blood Count 3.6 10^3/uL (4.0-10.0)
[2022-02-07 18:53] LABS: Troponin(5th) Baseline 6 ng/L (0-10)
[2022-02-07 18:56] LABS: Alanine Aminotransferase 34 U/L (0-33); Albumin Level 4.1 g/dL (3.5-5.2); Alkaline Phosphatase 135 U/L (35-105); Anion Gap 13.1 (5-19); Aspartate Amino Transferase 49 U/L (0-32); Blood Urea Nitrogen 10 mg/dL (8-23); Carbon Dioxide 26 mmol/L (22-29); Chloride 106 mmol/L (98-107); Globulin 2.9 g/dL (1.3-4.6); Glucose 83 mg/dL (65-115); Osmolality Calculated 290 mOsm/kg (285-295); Potassium 4.1 mmol/L (3.5-5.1); Sodium 141 mmol/L (136-145); Total Bilirubin 0.4 mg/dL (0.15-1.2)
[2022-02-07 18:59] VITALS: BP 112/67; PULSE 63; RESP 12; O2SAT 96
[2022-02-07 19:03] LABS: Add Urine Microscopic? NO; Charge for UA Resulting for Rev
[2022-02-07 19:08] LABS: Bilirubin Urine Neg (Negative); Blood Urine Neg (Negative); Glucose Urine UA Norm (Normal); Ketones Urine Negative (Negative); Leukocyte Esterase Urine Negative (Negative); Nitrate Urine Negative (Negative); Protein Urine Neg (Negative); Specific Gravity, Urine 1.005 (1.005-1.030); Urine Appearance Clear (CLEAR); Urine Color Light yellow (Yellow); Urobilinogen Urine Neg (Negative); pH Urine 6 (5-7)
[2022-02-07 19:31] VITALS: BP 129/55; PULSE 59; RESP 16; O2SAT 94
--- NOTE | 2022-02-07 19:50 | ECG_ITS ---
[facility] Test Date: 2022-02-07 Pat Name: Peggy Tejada Department: Room: Gender: Female Boat Pilot: : 1960 Requested By: Soto Flores Order Number: [id number] Everardo MD: Edwin Pablo M.D. Measurements Intervals [place] Rate: 50 P: 42 [place]: 187 QRS: -24 QRSD: 106 T: 10 QT: 442 QTc: 406 Interpretive Statements SINUS BRADYCARDIA BORDERLINE LEFT AXIS DEVIATION [QRS AXIS < -20] Compared to ECG 02/07/2022 17:49:26 Sinus rhythm no longer present Electronically Signed On 02-08-2022 20:41:09 STUDENT ASSISTANT by Edwin Pablo M.D. [id number]
[2022-02-07 20:25] VITALS: BP 107/61; PULSE 62; RESP 18; O2SAT 91
== END 2022-02-07 20:26 | disposition home or self-care (01) ==
PROVIDERS: Emergency Provider Student in an Organized Health Care Education/Training Program; PCP Family Medicine
DX: R07.9 Chest pain, unspecified (principal); R56.9 Unspecified convulsions; Z79.82 Long term (current) use of aspirin; Z77.22 Contact with and (suspected) exposure to environmental tobacco smoke (acute) (chronic); I50.9 Heart failure, unspecified; E78.5 Hyperlipidemia, unspecified
CPT/HCPCS: 36415; 71045; 80053; 81003; 84484; 85025; 93005; 99285

== ENCOUNTER → 2022-02-24 14:45 | Outpatient (BNVA) | payer MEDICARE, MEDICAID, SELFPAY | PROVIDERS: PCP Family Medicine; Visit Provider Internal Medicine | DX: R06.09 Other forms of dyspnea (principal); I11.0 Hypertensive heart disease with heart failure; I50.9 Heart failure, unspecified; I42.8 Other cardiomyopathies | CPT/HCPCS: 99214 ==

== ENCOUNTER 2022-02-28 12:02 | Outpatient (CLI) | payer MEDICARE, MEDICAID, SELFPAY ==
[2022-02-28 13:08] LABS: Basophils % 0.6 %; Eosinophils # 0.1 10^3/uL (0.0-0.8); Eosinophils % 1.4 %; Hematocrit 44.4 % (37.0-47.0); Hemoglobin 13.7 g/dL (11.5-15.3); Lymphocytes # 1.4 10^3/uL (0.8-4.8); Lymphocytes % 26.2 %; Mean Corpuscular HGB Conc 30.9 g/dL (30.0-36.0); Mean Corpuscular Hemoglobin 29.4 pg (28.0-34.0); Mean Corpuscular Volume 95.3 fl (81-99); Mean Platelet Volume 10.1 fL (7.4-10.4); Monocytes # 0.5 10^3/uL (0.2-0.9); Monocytes % 9.9 %; Neutrophils # 3.19 10^3/uL (1.8-7.7); Neutrophils % 61.9 %; Nucleated Red Blood Cells % 0 %; Platelet Count 288 10^3/cmm (130-400); Red Blood Count 4.66 10^6/uL (4.1-5.3); Red Cell Distribution Width 12.8 % (12.1-15.1); White Blood Count 5.2 10^3/uL (4.0-10.0)
[2022-02-28 13:29] LABS: Blood Urea Nitrogen 20 mg/dL (8-23); Calcium 9.1 mg/dL (8.5-10.5); Carbon Dioxide 24 mmol/L (22-29); Chloride 99 mmol/L (98-107); Glomerular Filtration Rate 85.4 mL/min (90-130); Glucose 99 mg/dL (65-115); Osmolality Calculated 279 mOsm/kg (285-295); Sodium 133 mmol/L (136-145)
[2022-02-28 13:30] LABS: Anion Gap 14.8 (5-19); Potassium 4.8 mmol/L (3.5-5.1)
[2022-03-03 16:31] LABS: Thyroid Stimulating Hormone 3.92 uIU/mL (0.27-4.20)
== END 2022-02-28 12:03 | disposition home or self-care (01) ==
LOC: LAB 12:05
PROVIDERS: PCP Family Medicine; Visit Provider Internal Medicine
DX: I10 Essential (primary) hypertension (principal); I42.8 Other cardiomyopathies; I50.9 Heart failure, unspecified
CPT/HCPCS: 36415; 80048; 84443; 85025

== ENCOUNTER 2022-03-01 10:09 | Outpatient (CLI) | payer MEDICARE, MEDICAID, SELFPAY ==
[2022-03-01 10:52] LABS: INR 0.95 (0.83-1.21)
== END 2022-03-01 10:10 | disposition home or self-care (01) ==
PROVIDERS: PCP Family Medicine; Visit Provider Internal Medicine
DX: R58 Hemorrhage, not elsewhere classified (principal)
CPT/HCPCS: 36415; 85610

== ENCOUNTER 2022-03-04 05:49 | Outpatient (CLI) | payer MEDICARE, MEDICAID, SELFPAY ==
[2022-03-04] VITALS (17 sets, daily range): BP systolic 97–144; BP diastolic 60–84; PULSE 50–62; RESP 14–19; TEMP 37.1; O2SAT 92–99; BMI 35.9
[2022-03-04] MEDS: diphenhydrAMINE 50 mg Capsule PO (06:08)
--- NOTE | 2022-03-04 07:00 | XACV_ITS ---
Exam Room: 2 Ht: 163 cm Wt: 95 kg BSA: 2.11 m2 Gender: Female : 1960 Any Known Allergies: Other Exam Priority: Routine Procedure(s): Procedure Description: Diagnostic procedure Procedure Description: Left Heart Catheterization Procedure Description: Left ventriculography Procedure Description: Coronary Angiography Diagnostic Cath Status: Elective Diagnostic Findings * INDICATION: Chest pain/ abnromal stress test. * Patient has separate ostia for LAD and left circumflex arteries. LAD: No significant stenosis. Left circumflex artery: Patent. RCA: Patent. No significant stenosis.. * Coronary angiography shows right dominance. PCI Status: Elective Conclusions 1. Non-obstructive coronary artery disease. 2. Patient has separate ostia for LAD and left circumflex arteries. LAD: No significant stenosis. Left circumflex artery: Patent. RCA: Patent. No significant stenosis.. 3. Normal left ventricular systolic function. Ejection fraction of 50%. Recommendations * Aggressive risk factor control. * Outpatient cardiology follow up in 4 weeks. Interventional RX Recommendation: medical therapy and/or counseling Diagnostic RX Recommendation: medical therapy and/or counseling Anticoagulation: Heparin Ventriculography Ejection Fraction: 50.0 % Pressures Phase:Rest AO : 99 / 66 ( 82 ) @ 7:42:00 AM 154 / 81 ( 110 ) @ 7:54:00 AM 155 / 82 ( 111 ) @ 7:54:00 AM LV : 149 / -2 / 18 @ 7:52:00 AM 146 / -7 / 16 @ 7:52:00 AM 149 / -1 / 23 @ 7:53:00 AM 147 / -1 / 22 @ 7:54:00 AM Valves Phase:DefaultPhase AV : 0.0 @ 8:00:44 AM 0.0 @ 8:00:44 AM AV Mean Gradient: 0.0 @ 8:00:44 AM 0.0 @ 8:00:44 AM Clinical Evaluation EBL: 5mL-10mL Procedural Details Procedure Consent Obtained. Admit Source: Out Patient. Pre-Procedure Time Out. Identified patient by full name and date of as verbalized by the patient/guarantor. Does the consent match the physician's order: Yes. Accurate & Complete Informed Consent: Yes. Inpatient/Outpatient History & Physical on Chart: Yes. If H&P is completed, is and addenduem needed: No; If yes, is the addendum complete: N/A. Visualize and Verify Site with Patient/Guarantor: N/A. Relevant Radiology Images available: Yes. The risks, benefits, and alternatives of sedation and/or procedure were discussed by physician. The patient agrees to continue. Procedure started. [facility] Clinical Fraility Score: 3: Managing Well. Body Team Member Indications: abnormal stress test. Chest Pain Symptom Assessment: Asymptomatic. Correct patient, site and procedure confirmed by cath team. Current diagnosis: Chest Pain. PERRLA. Strong, equal hand bindery machine feeder offbearer bilaterally. Lungs clear x 5 lobes. IV Site on Arrival: 20 gauge in the right anticubital. IV Fluids: 0.9% NaCl at KVO. 0 mL infused prior to cathode builder. Pre Procedural Pulses: bilateral radial was 3+. Pre Procedural Pulses: bilateral posterior tibial was 3+. Pre Procedural Pulses: left dorsalis pedis was 1+. Pre Procedural Pulses: left dorsalis pedis was 3+. Oxygen started at 2liters/min via nasal canula. right groin was prepped with chloroprep then draped in the usual sterile fashion. right radial was prepped with chloroprep then draped in the usual sterile fashion. Physician notified. Baseline sample Acquired. HR: 58 BPM. Physician arrived. Physician scrubbed in. Immediate Pre-Procedure Time Out. Correct Patient: Yes; Correct Procedure: Yes; Correct Site: Yes; Correct Patient Position: Yes; Correct Supplies: Yes; Dried Flammable Prep: Yes; Blood Products Available: N/A;. Lidocaine 1% infiltrated to the right radial. Arterial access obtained. A 5 sinhala TIG catheter in over wire. Multiple views taken of left coronary artery. Catheter redirected to the RCA. Catheter out. A 5 sinhala JR4 catheter in over wire. Multiple views taken of right coronary artery. Catheter out. A 5 sinhala Straight Pig catheter in over wire. EDP Sample taken: LV 149/-3,18; HR: 63 BPM; SpO2: 100%. EDP Sample taken: LV 146/-8,16; HR: 67 BPM; SpO2: 100%. LV gram performed in VILLAR @ 10 mL/second for a total of 30 mL. EDP Sample taken: LV 149/-2,23; HR: 60 BPM; SpO2: 100%. Pullback taken: LV 147/-2,22; AO 154/81(110); Mean: 0mmHg, Peak to Peak: 0mmHg, SEP: 6sec/min; HR: 66 BPM; SpO2: 100%. Catheter out. Wire out. Physician scrubbed out. A TR Band was successful obtaining hemostatsis at the Right Radial artery insertion site. Post Procedure: Pulses reassessed and unchanged. PERRLA. Strong, equal hand bindery machine feeder offbearer bilaterally. No VTE prophylaxis required. Medication's Wasted: Lidocaine 1% = 1 mL. Medication's Wasted: Nitro = 49.8 mg. Medication's Wasted: Heparin = 1000 units. Total IV fluids: 50 mL. Post-op diagnosis: non-obstructive CAD. Complications: none. Estimated blood loss: 5mL-10mL. Responsiveness - Normal response to verbal stimuli; alert and oriented, PERRLA. Airway - Unaffected, no intervention required; spontaneous ventilation. Circulation: W/N/L, pulses unchanged. Nausea/Vomiting: No. Procedure completed. Patient transferred by wheelchair to CPRU. Vital chart was stopped. Access Site Site: Right Radial artery Sheath Size: 6 Fr Hemostasis Method: TR Band Hemostasis Success: Successful Procedure Medications Start: 7:35 AM Stop: 7:35 AM Medication: Versed Amount: 1 mg Route: I.V. Start: 7:35 AM Stop: 7:35 AM Medication: Fentanyl Amount: 50 mcg Route: I.V. Start: 7:39 AM Stop: 7:39 AM Medication: Nitrogylcerin Amount: 200 mcg Route: I.A. Start: 7:41 AM Stop: 7:41 AM Medication: Heparin Amount: 5000 units Route: I.V. Start: 7:52 AM Stop: 7:52 AM Medication: Versed Amount: 1 mg Route: I.V. Start: 7:52 AM Stop: 7:52 AM Medication: Fentanyl Amount: 50 mcg Route: I.V. I, the attending physician, have reviewed and verified all procedure medications. Yes, all medications given per verbal order History/Risk Factors Hypertension: Yes Dyslipidemia: Yes Peripheral Arterial Disease (PAD): No Myocardial Infarction (DC): No Obesity: No Tobacco Use: Never Prior Interventions PCI: No CABG: No Valve Surgery: No Report Signatures Finalized by Jeronimo Moreira MD on 03/04/2022 09:10 AM
--- NOTE | 2022-03-04 07:34 | W.PM.OPSUD ---
Surgery/Procedure H&P Update DATE OF PROCEDURE: March 04, 2022 DATE H&P PERFORMED: 02/24/22 H&P UPDATE INFORMATION: I have reviewed H&P completed within last 30 days, I have examined patient prior to procedure and No changes to prior documentation PREOP DIAGNOSIS: Chest pain/ abnormal stress test PRIMARY INDICATION FOR PROCEDURE: Chest pain/ abnormal stress test PLANNED PROCEDURE: Operation Date: 03/04/22 07:00 Proposed Procedures p left heart cath 77188,R94.39(Left) - Jeronimo Moreira M.D Possible percutaneous coronary intervention PATIENT REASSESSED PRIOR TO SEDATION, WITH NO CHANGE NOTED: Yes PHYSICAL EXAM: alert, oriented x 3, clear to auscultation bilaterally and regular rate & rhythm AIRWAY EVAL/ANESTHESIA PLAN: normal airway, ASA III, Local Anesthesia, Risks, benefits & alternatives of sedation and/or procedure discussed and Patient agrees to continue as planned ADDITIONAL INFORMATION: Moderate sedation
--- NOTE | 2022-03-04 08:00 | SUR.PHASEII ---
Received patient back from the medical lab technologist s/p diagnostic [facility] via wheelchair. Patient ambulated to the bed without difficulty. monitoring analyst placed and vital signs obtained. TR band to the right wrist with no bleeding or hematoma noted. Palpable radial pulse. No other assessment changes noted from pre cath assessment. Plan for DC home in 3 hours.
--- NOTE | 2022-03-04 09:00 | SUR.PHASEII ---
Letting the air out of the TR band per protocol
--- NOTE | 2022-03-04 11:00 | SUR.PHASEII ---
TR band off. Area cleansed with warm water and patted dry. a large band aid applied to the area and secured loosly with coban. Patient tolerated well.
--- NOTE | 2022-03-04 11:50 | SUR.PHASEII ---
Patient discharged home via wheelchair with boyfriendRio
== END 2022-03-04 05:50 | disposition home or self-care (01) ==
PROVIDERS: PCP Family Medicine; Visit Provider Internal Medicine
DX: I25.10 Atherosclerotic heart disease of native coronary artery without angina pectoris (principal); I10 Essential (primary) hypertension; E78.5 Hyperlipidemia, unspecified; I42.8 Other cardiomyopathies; Z79.82 Long term (current) use of aspirin; I11.0 Hypertensive heart disease with heart failure; I50.9 Heart failure, unspecified; E66.01 Morbid (severe) obesity due to excess calories; Z68.35 Body mass index [BMI] 35.0-35.9, adult; G47.30 Sleep apnea, unspecified; Z90.49 Acquired absence of other specified parts of digestive tract
CPT/HCPCS: 36415; 93458; 96361; 96365; 99152; 99153; C1769; C1887; C1894; J1644; J2250; J3010; J3490; J7030; Q0163; Q9967

== ENCOUNTER → 2022-03-10 13:10 | Outpatient (BNVA) | payer MEDICARE, MEDICAID, SELFPAY | PROVIDERS: PCP Family Medicine; Visit Provider Internal Medicine | DX: I11.0 Hypertensive heart disease with heart failure (principal); I50.9 Heart failure, unspecified; G47.30 Sleep apnea, unspecified; I42.8 Other cardiomyopathies; E66.01 Morbid (severe) obesity due to excess calories; Z68.36 Body mass index [BMI] 36.0-36.9, adult; E78.5 Hyperlipidemia, unspecified; R06.09 Other forms of dyspnea | CPT/HCPCS: 99213 ==

== ENCOUNTER 2022-04-26 12:50 | Outpatient (CLI) | payer MEDICARE, MEDICAID, SELFPAY | END 2022-04-26 12:51 | disposition home or self-care (01) | LOC: RT 12:52 | PROVIDERS: PCP Family Medicine; Visit Provider Internal Medicine | DX: R06.09 Other forms of dyspnea (principal) | CPT/HCPCS: 94060; 94726; 94729 ==

== ENCOUNTER 2022-06-28 08:47 | Outpatient (CLI) | payer MEDICARE, MEDICAID, SELFPAY ==
--- NOTE | 2022-06-28 09:01 | MM_ITS ---
WS: [id number] BILATERAL SCREENING DIGITAL TOMOSYNTHESIS MAMMOGRAM WITH CAD HISTORY: SCREENING COMPARISON: 06/16/2021, 01/24/2020 Bilateral CC and MLO views with tomosynthesis and synthetic mammography submitted. Computer aided det ection analyzed. Breast composition: There are scattered areas of fibroglandular density. No suspicious masses, microc alcifications or architectural distortion. MM/[place] [id number] IMPRESSION: BI-RADS: 1-Negative FOLLOW UP: 1 Year Follow-up
== END 2022-06-28 08:48 | disposition home or self-care (01) ==
LOC: RAD 08:52
PROVIDERS: PCP Family Medicine; Visit Provider Family Medicine
DX: Z12.11 Encounter for screening for malignant neoplasm of colon (principal)
CPT/HCPCS: 77063; 77067

== ENCOUNTER → 2022-08-03 10:23 | Outpatient (BNVA) | payer MEDICARE, MEDICAID, SELFPAY | PROVIDERS: PCP Family Medicine; Visit Provider Internal Medicine Pulmonary Disease | DX: J45.909 Unspecified asthma, uncomplicated (principal); G47.30 Sleep apnea, unspecified; R91.1 Solitary pulmonary nodule; E66.01 Morbid (severe) obesity due to excess calories; Z68.35 Body mass index [BMI] 35.0-35.9, adult; I42.8 Other cardiomyopathies; I50.9 Heart failure, unspecified | CPT/HCPCS: 99204 ==

== ENCOUNTER 2022-09-02 21:37 | Emergency (ER) | payer MEDICARE, MEDICAID, SELFPAY ==
[2022-09-02 21:42] VITALS: BP 148/93; PULSE 72; RESP 24; TEMP 36.7; O2SAT 96; BMI 35.2
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
[2022-09-02 22:40] VITALS: BP 142/94; PULSE 69; RESP 19; O2SAT 94
[2022-09-02 23:19] VITALS: BP 149/69; PULSE 65; RESP 16; O2SAT 98
[2022-09-02] MEDS: ondansetron 2 mg/ML SDV 2 mL 4 MG IVP (23:20)
== END 2022-09-02 23:25 | disposition home or self-care (01) ==
PROVIDERS: Emergency Provider Emergency Medicine; PCP Family Medicine
DX: S50.02XA Contusion of left elbow, initial encounter (principal); S80.02XA Contusion of left knee, initial encounter; I50.9 Heart failure, unspecified; E78.5 Hyperlipidemia, unspecified; I25.5 Ischemic cardiomyopathy; E66.01 Morbid (severe) obesity due to excess calories; Z68.35 Body mass index [BMI] 35.0-35.9, adult; Z79.82 Long term (current) use of aspirin; Z79.899 Other long term (current) drug therapy
CPT/HCPCS: 70450; 72125; 73080; 73562; 96374; 99284; J2405

== ENCOUNTER → 2022-09-08 13:39 | Outpatient (BNVA) | payer MEDICARE, MEDICAID, SELFPAY | PROVIDERS: PCP Family Medicine; Visit Provider Internal Medicine | DX: I11.0 Hypertensive heart disease with heart failure (principal); I50.9 Heart failure, unspecified; G47.30 Sleep apnea, unspecified; I42.8 Other cardiomyopathies; E66.01 Morbid (severe) obesity due to excess calories; Z68.35 Body mass index [BMI] 35.0-35.9, adult; E78.5 Hyperlipidemia, unspecified; R06.09 Other forms of dyspnea | CPT/HCPCS: 99214 ==

== ENCOUNTER → 2022-11-03 09:29 | Outpatient (BNVA) | payer MEDICARE, MEDICAID, SELFPAY | PROVIDERS: PCP Family Medicine; Visit Provider Internal Medicine Pulmonary Disease | DX: G47.30 Sleep apnea, unspecified (principal); R91.1 Solitary pulmonary nodule; E66.01 Morbid (severe) obesity due to excess calories; Z68.35 Body mass index [BMI] 35.0-35.9, adult; Z77.22 Contact with and (suspected) exposure to environmental tobacco smoke (acute) (chronic); I50.9 Heart failure, unspecified; I42.8 Other cardiomyopathies | CPT/HCPCS: 99214 ==

== ENCOUNTER 2023-03-03 09:40 | Outpatient (CLI) | payer MEDICARE, MEDICAID, SELFPAY ==
--- NOTE | 2023-03-03 10:00 | CT_ITS ---
WS: [id number] CT chest wo con [id number] HISTORY: Follow Up Lung Nodule TECHNIQUE: Axial imaging performed through the thorax. High resolution technique. Coronal and sagitta l reformats are submitted. [facility] use at least one of these dose optimiza tion techniques: automated exposure control; mA and/or kV adjustment per patient size (includes targe joe exams where dose is matched to clinical indication); or iterative reconstruction. CONTRAST: Omnipaque 350; 100 mL IV. DLP: 1030.81 mGy.cm COMPARISON: Chest CT 12/21/2021, neck CT 04/29/2020 Lungs and central airway: Normal expanded lungs. Reidentified is a solid pulmonary nodule measuring 1 .3 x 1.3 cm in the periphery LEFT upper lobe with mild pleural tagging. There is an adjacent dilated bronchus or slight cavitation. No significant increase in size since 12/21/2021. No additional mass. No air trapping. No honeycombing or bronchiectasis. Pleura: Normal. No pleural effusion. Heart and pericardium: Normal size heart with no pericardial effusion. Mediastinum and price: No mediastinum or hilar adenopathy. Vessels: Minimal atherosclerotic plaque in the aorta. Chest wall and lower neck: No soft tissue masses. Upper abdomen: Small hiatal hernia. Prior cholecystectomy. Stable LEFT adrenal adenoma measuring 1.3 cm. Osseous structures: No destructive process. IMPRESSION: 1. No evidence for honeycombing or bronchiectasis. 2. No significant increase in size of the solid nodule LEFT upper lobe measuring 1.3 x 1.3 cm since 12/21/2021. Nodule is new since the neck CT of 04/29/2020. Consider follow-up PET/CT imaging. Low-grad e malignancy is not excluded. Recommend continued serial CT evaluation. 3. No adenopathy. 4. Prior cholecystectomy. 5. Stable LEFT adrenal adenoma.
== END 2023-03-03 09:41 | disposition home or self-care (01) ==
PROVIDERS: PCP Family Medicine; Visit Provider Internal Medicine Pulmonary Disease
DX: R91.1 Solitary pulmonary nodule (principal); R06.09 Other forms of dyspnea
CPT/HCPCS: 71250

== ENCOUNTER → 2023-03-09 15:30 | Outpatient (BNVA) | payer MEDICARE, MEDICAID, SELFPAY | PROVIDERS: PCP Family Medicine; Visit Provider Internal Medicine | DX: I11.0 Hypertensive heart disease with heart failure (principal); I50.9 Heart failure, unspecified; G47.30 Sleep apnea, unspecified; I42.8 Other cardiomyopathies; E66.01 Morbid (severe) obesity due to excess calories; Z68.36 Body mass index [BMI] 36.0-36.9, adult; E78.5 Hyperlipidemia, unspecified; R06.09 Other forms of dyspnea | CPT/HCPCS: 99214 ==

== ENCOUNTER 2023-04-25 09:43 | Outpatient (CLI) | payer MEDICARE, MEDICAID, SELFPAY ==
--- NOTE | 2023-04-25 10:00 | PETR_ITS ---
PROCEDURE INFORMATION: Exam: PET/CT Skull Base to Mid-thigh Exam date and time: 04/25/2023 10:37 AM Age: 62 years old Clinical indication: Abnormal findings; Follow up lung nodule LABS AND CLINICAL REPORTS: Glucose: 115 mg/dl Treatment strategy for malignancy (PET staging): Initial Staging (PI) TECHNIQUE: Imaging protocol: Following at least four-hour fasting and following the injection of radiopharmaceutical, low dose CT images were obtained. Then, PET images were obtained. Attenuation corrected images were constructed using the CT scan. Fused images of PET and CT were reviewed. The standardized uptake values (SUV) reported below are maximum values within a region of interest, expressed in gm/ml. Exam includes orbital meatal line to mid-thigh. Radiopharmaceutical: 10.67 mCi F-18 FDG (Fluorodeoxyglucose), IV. Time of imaging post radiopharmaceutical administration: 1 hour Injection site: Left arm COMPARISON: CT chest 03/03/2023 and 12/21/2021, CT cervical spine 09/02/2022, CT abdomen pelvis 03/27/2020 and 10/14/2019 FINDINGS: Brain: Visualized brain has normal physiologic uptake. Pharynx: No abnormal uptake. Larynx: No abnormal uptake. Lungs, pleura and trachea: No abnormal uptake. 1.6 x 1.4 cm left upper lobe nodule with small medial eccentric lucency on axial image 60 is not FDG avid (1 SUV). It is unchanged since 12/21/2021. No pleural effusion. Heart: Normal physiologic uptake. There is no cardiomegaly. No coronary artery calcification is visualized. There is no pericardial effusion. Mediastinal space: No abnormal uptake. Liver: No abnormal uptake. Gallbladder and bile ducts: No abnormal uptake. Status post cholecystectomy. pancreas: No abnormal uptake. Spleen: No abnormal uptake. No splenomegaly. Adrenal glands: No abnormal uptake. 1.9 x 1.6 cm hypodense nodule in the left adrenal compatible with benign adrenal cortical adenoma is stable since 2019. No right adrenal nodule. Kidneys and ureters: Normal physiologic uptake. No hydronephrosis. Stomach and bowel: No abnormal uptake. Intraperitoneal and retroperitoneal spaces: No abnormal uptake. No ascites. Bladder: Normal physiologic uptake. Reproductive: No abnormal uptake. The uterus is absent post surgically. Vasculature: No abnormal uptake. No aortic aneurysm. Lymph nodes: No abnormal uptake. No lymphadenopathy in the head, neck, chest, abdomen, pelvis, and extremities. Bones/joints: No abnormal uptake in the visualized axial and appendicular skeleton. Soft tissues: No abnormal uptake in the visualized head, neck, chest, abdomen, pelvis, and extremities. PET/PET skulltothi SUBSEQ [id number] IMPRESSION: No abnormal radiotracer uptake to suggest malignancy. Non FDG avid 1.6 cm lung nodule in the left upper lobe unchanged since 12/21/2021 represents benign finding.
== END 2023-04-25 09:44 | disposition home or self-care (01) ==
LOC: RAD 09:44
PROVIDERS: PCP Family Medicine; Visit Provider Internal Medicine Pulmonary Disease
DX: R91.1 Solitary pulmonary nodule (principal)
CPT/HCPCS: 78815; A9552

== ENCOUNTER → 2023-05-04 09:36 | Outpatient (BNVA) | payer MEDICARE, MEDICAID, SELFPAY | PROVIDERS: PCP Family Medicine; Visit Provider Internal Medicine Pulmonary Disease | DX: R06.09 Other forms of dyspnea (principal); J45.909 Unspecified asthma, uncomplicated; G47.30 Sleep apnea, unspecified; R91.1 Solitary pulmonary nodule | CPT/HCPCS: 99214 ==

== ENCOUNTER → 2023-05-30 14:15 | Outpatient (BNVA) | payer MEDICARE, MEDICAID, SELFPAY | PROVIDERS: PCP Family Medicine; Referring Provider Family Medicine; Visit Provider Physician Assistant | DX: G56.01 Carpal tunnel syndrome, right upper limb; G56.21 Lesion of ulnar nerve, right upper limb | CPT/HCPCS: 73110; 99203 ==

== ENCOUNTER 2023-06-07 21:33 | Emergency (ER) | payer MEDICARE, MEDICAID, SELFPAY ==
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
[2023-06-07 21:38] VITALS: BP 121/78; PULSE 70; RESP 18; TEMP 36.7; O2SAT 97
[2023-06-07] MEDS: morphine 4 mg/mL SDV 1 mL IM (22:25)
--- NOTE | 2023-06-07 23:26 | W.ED.EXTPRO ---
Documented by User: [email or web address] Rainey 06/07/23 23:31 HPI - Extremity Problem General: Chief complaint: Extremity Injury, Lower Stated complaint: FALL, RIGHT ANKLE PAIN Time Seen by Provider: 06/07/23 21:35 Source: patient Mode of arrival: ambulatory Limitations: no limitations History of Present Illness: Patient is a 62-year-old female who presents to the emergency department due to fall and associated right foot injury just prior to arrival. Patient states that she tripped while ambulating, and suffered inversion injury of the right foot. She arrives with significant swelling to the lateral aspect, with sharp pain to the lateral foot. No distal neurovascular issues or open wounds. Other than the severe edema, no bruising or other overlying skin changes. She has no prior injuries or surgeries to that foot. No other injuries suffered with the fall. She did not hit her head or lose consciousness. She takes hydrocodone for pain for chronic back issues, states this has not done much for her pain currently. MD Complaint: joint swelling and joint pain Onset (ago): minute(s) Pain Consistency: constant Location: right Quality: sharp Radiation: none Relieving factors: nothing Exacerbating factors: range of motion, weight bearing and palpation Associated symptoms: Deny chest pain, fever(s) or rash Review of Systems General: Reports: 10 or more systems reviewed and unremarkable except in HPI and below Const: Denies: fever(s), chills or fatigue Eyes: Denies: change in vision ENMT: Denies: throat pain, ear or mastoid pain or nasal discharge Card: Denies: chest pain, palpitations, swelling of feet/ankles or lightheadedness Resp: Denies: dyspnea, productive cough or wheezing GI: Denies: abdominal pain, nausea, vomiting, diarrhea or constipation : Denies: flank pain, difficulty voiding, dysuria or urinary frequency Musc: Reports: joint pain (Right ankle) and joint swelling (Right ankle); Denies: neck pain or back pain Skin/Breast: Denies: rash Neuro: Denies: headache(s), numbness in extremities or weakness in extremities PFS ED PFSH: Medical History Chronic neck and back pain Opioid contract exists Cystitis Treat with Augmentin 875 mg twice daily for 10 days she did have a previous E. coli UTI which was treated with Bactrim unfortunately organism was resistant to Bactrim. Discussed with patient first and is to return make sure bladder is clear of infection may then need to consider urodynamics and cystoscopy to further evaluate her bladder. Meantime she will maintain a bladder diary and document her frequency urgency to be interesting to see if it is better with treatment of her cystitis. Nonischemic cardiomyopathy Congestive heart failure Morbid obesity Dyslipidemia Back Pain Encounter for long-term use of opiate analgesic Sleep apnea Anemia Seizures Laceration of both fallopian tubes FH: cholecystectomy Surgical History Status post small bowel resection History of colon resection Status post partial hysterectomy GUY with [facility] Dr. Husain 2003 Family History Mother Cancer Colon cancer Grandmother Cancer Breast Other CAD (coronary artery disease) Diabetes Social History Smoking and tobacco/nicotine status: never used tobacco/nicotine Second hand smoke exposure: Yes Alcohol intake: current Alcohol intake frequency: holidays/special occasions only Alcohol type: wine and other Substance/Drug Use: never Physical Exam Const: COMMON NORMALS: no acute distress, patient oriented x3 and no limitations GENERAL APPEARANCE: cooperative, comfortable and well developed ORIENTATION/CONSCIOUSNESS: Yes awake, Yes oriented to person, Yes oriented to place and Yes oriented to time HENMT: COMMON NORMALS: normocephalic, atraumatic and hearing grossly normal bilaterally HEAD & SCALP: normocephalic and atraumatic Eye: COMMON NORMALS: Equal, round and reactive pupils present, EOMs intact bilaterally and conjunctivae normal CONJUNCTIVA: Yes conjunctivae normal PUPIL: Yes Equal, round and reactive pupils present Neck/C-Spine: COMMON NORMALS: full ROM, supple and no JVD Resp: COMMON NORMALS: normal respiratory effort, No retractions, No use of accessory muscles and clear to auscultation bilaterally AUSCULTATION: clear to auscultation bilaterally Cardio: COMMON NORMALS: no JVD, regular rate, regular rhythm, No clicks present (Cardio), No murmurs present (Cardio) and No rub (Cardio) RATE: regular rate RHYTHM: regular rhythm Extremity: NARRATIVE EXTREMITY EXAM: Marked swelling to the lateral malleolus of the right foot. This area is significantly tender to palpation. She does have intact dorsalis pedis and posterior tibial pulses. No dorsal foot swelling. No overlying ecchymosis or open wounds. Range of motion severely limited due to pain. Special testing of the foot unobtainable due to patient's pain. Neuro: COMMON NORMALS: patient oriented x3, moves all extremities, no focal motor deficits and no sensory deficits noted SENSORIUM/ORIENTATION: Yes oriented to person, Yes oriented to place and Yes oriented to time Psych: COMMON NORMALS: mental status grossly normal and Normal thought process present THOUGHT PROCESS: Normal thought process present Skin: COMMON NORMALS: no rashes or lesions noted GENERAL SKIN EXAM: no rashes or lesions noted Course Vital Signs: Vital signs: Vital Signs Temperature 98.1 F 06/07/23 23:45 Pulse Rate 70 06/07/23 23:45 Respiratory Rate 18 06/07/23 23:45 Blood Pressure 121/78 06/07/23 23:45 Pulse Oximetry 97 06/07/23 23:45 Oxygen Delivery Me thod Room Air 06/07/23 21:38 MDM - Extremity (Nontraumatic) Medical Decision Making Patient was seen for right foot injury status post fall just prior to arrival. She arrives with significant edema to the lateral malleolus, with good amount of pain not controlled with hydrocodone. X-ray interpretation showed a distal fibular fracture, nondisplaced. Due to the level of edema, patient will be wrapped with compression bandage and referred to Ortho for further testing in the next few days. She will be given crutches and instructed to be nonweightbearing. Also instructed to continue taking hydrocodone at home, and to enact RICE therapy. Patient agrees with this plan and return precautions given. Lab Data Radiology Impressions Ankle X-Ray 06/07/23 21:36 IMPRESSION: Minimally displaced fracture of the lateral malleolus with overlying soft tissue swelling. Foot X-Ray 06/07/23 21:36 IMPRESSION: No acute fracture or dislocation in the foot. XR interpretation done by ED provider, pending radiology final review Discharge Plan Discharge Patient Disposition: Home Clinical Impression: Fracture of right fibula Qualifiers: Encounter type: initial encounter Fibula location: distal Fracture type: closed Fracture morphology: unspecified fracture morphology Qualified Code(s): S82.831A - Other fracture of upper and lower end of right fibula, initial encounter for closed fracture Condition: Stable Prescriptions: No Action nitroglycerin 0.4 mg tablet, sublingual 0.4 mg SUBLINGUAL Q5M PRN (Reason: Chest Pain) Rx Instructions: do not exceed 3 doses per episode ondansetron HCl 4 mg tablet 4 mg PO PRN levetiracetam 750 mg tablet 1,500 mg PO BID lamotrigine 25 mg tablet 100 mg PO BID levothyroxine 100 mcg capsule See Rx Instructions .ROUTE .COMPLEX Rx Instructions: 100 mcg PO ON MON,,MON, aspirin [Vicki Chewable Aspirin] 81 mg tablet,chewable 81 mg PO DAILY hydrocodone-acetaminophen 5-325 mg tablet 1 tab PO QID PRN (Reason: pain) 30 Days Qty: 120 0RF Rx Instructions: fill on or after 04/11/21 budesonide-formoterol [Symbicort] 80-4.5 mcg/actuation HFA aerosol inhaler 1 puff inhalation DAILY PRN (Reason: sob) Qty: 10.2 6RF gabapentin 800 mg tablet 800 mg PO QID 30 Days Qty: 120 1RF Rx Instructions: lisinopril 10 mg tablet 10 mg PO BID Qty: 180 3RF albuterol sulfate 90 mcg/actuation HFA aerosol inhaler 1 inh inhalation QID PRN (Reason: shortness of breath or wheezing) Qty: 8.5 6RF carvedilol 12.5 mg tablet See Rx Instructions .ROUTE .COMPLEX Qty: 180 3RF Dose Instruction: TAKE 1 TABLET BY MOUTH TWICE DAILY Rx Instructions: TAKE 1 TABLET BY MOUTH TWICE DAILY omeprazole 20 mg capsule,delayed release(DR/EC) 40 mg PO DAILY levothyroxine 88 mcg tablet See Rx Instructions .ROUTE .COMPLEX Rx Instructions: 88 MCG PO ON FRI, SAT, and SUN Discharge Orders: Discharge ED (Routine); Ordered 06/07/23 Ordered By: Randall Rodriguez Referrals: Patrice Juan MD [Primary Care Provider] - Discharge Diet: Usual diet Discharge Activity: Use walker/crutches as instructed Patient Instructions: Leg Fracture (ED), Opioid Safety, Pain Management Activity Restrictions/Additional Instructions: Continue taking your hydrocodone at home for pain. Follow-up with orthopedics as discussed. Rest, ice, compression, and elevation. Nonweightbearing. Follow-up with primary care as needed. Return with any new or concerning symptoms you may have. 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 coli UTI which was treated with Bactrim unfortunately organism was resistant to Bactrim. Discussed with patient first and is to return make sure bladder is clear of infection may then need to consider urodynamics and cystoscopy to further evaluate her bladder. Meantime she will maintain a bladder diary and document her frequency urgency to be interesting to see if it is better with treatment of her cystitis. Nonischemic cardiomyopathy Congestive heart failure Morbid obesity Dyslipidemia Back Pain Encounter for long-term use of opiate analgesic Sleep apnea Anemia Seizures Laceration of both fallopian tubes FH: cholecystectomy Surgical History Status post small bowel resection History of colon resection Status post partial hysterectomy GUY with [facility] Dr. Husain 2003 Family History Mother Cancer Colon cancer Grandmother Cancer Breast Other CAD (coronary artery disease) Diabetes Social History Smoking and tobacco/nicotine status: never used tobacco/nicotine Second hand smoke exposure: Yes Alcohol intake: current Alcohol intake frequency: holidays/special occasions only Alcohol type: wine and other Substance/Drug Use: never Course Vital Signs: Vital signs: Vital Signs Temperature 98.1 F 06/07/23 23:45 Pulse Rate 70 06/07/23 23:45 Respiratory Rate 18 06/07/23 23:45 Blood Pressure 121/78 06/07/23 23:45 Pulse Oximetry 97 06/07/23 23:45 Oxygen Delivery Me thod Room Air 06/07/23 21:38 MDM - Extremity (Nontraumatic) Medical Decision Making Patient was seen for right foot injury status post fall just prior to arrival. She arrives with significant edema to the lateral malleolus, with good amount of pain not controlled with hydrocodone. X-ray interpretation showed a distal fibular fracture, nondisplaced. Due to the level of edema, patient will be wrapped with compression bandage and referred to Ortho for further testing in the next few days. She will be given crutches and instructed to be nonweightbearing. Also instructed to continue taking hydrocodone at home, and to enact RICE therapy. Patient agrees with this plan and return precautions given. Chart reviewed Lab Data Radiology Impressions Ankle X-Ray 06/07/23 21:36 IMPRESSION: Minimally displaced fracture of the lateral malleolus with overlying soft tissue swelling. Foot X-Ray 06/07/23 21:36 IMPRESSION: No acute fracture or dislocation in the foot. Discharge Plan Discharge Patient Disposition: Home Clinical Impression: Fracture of right fibula Qualifiers: Encounter type: initial encounter Fibula location: distal Fracture type: closed Fracture morphology: unspecified fracture morphology Qualified Code(s): S82.831A - Other fracture of upper and lower end of right fibula, initial encounter for closed fracture Condition: Stable Prescriptions: No Action nitroglycerin 0.4 mg tablet, sublingual 0.4 mg SUBLINGUAL Q5M PRN (Reason: Chest Pain) Rx Instructions: do not exceed 3 doses per episode ondansetron HCl 4 mg tablet 4 mg PO PRN levetiracetam 750 mg tablet 1,500 mg PO BID lamotrigine 25 mg tablet 100 mg PO BID levothyroxine 100 mcg capsule See Rx Instructions .ROUTE .COMPLEX Rx Instructions: 100 mcg PO ON MON,TUES,WED,THURS aspirin [Vicki Chewable Aspirin] 81 mg tablet,chewable 81 mg PO DAILY hydrocodone-acetaminophen 5-325 mg tablet 1 tab PO QID PRN (Reason: pain) 30 Days Qty: 120 0RF Rx Instructions: fill on or after 04/11/21 budesonide-formoterol [Symbicort] 80-4.5 mcg/actuation HFA aerosol inhaler 1 puff inhalation DAILY PRN (Reason: sob) Qty: 10.2 6RF gabapentin 800 mg tablet 800 mg PO QID 30 Days Qty: 120 1RF Rx Instructions: lisinopril 10 mg tablet 10 mg PO BID Qty: 180 3RF albuterol sulfate 90 mcg/actuation HFA aerosol inhaler 1 inh inhalation QID PRN (Reason: shortness of breath or wheezing) Qty: 8.5 6RF carvedilol 12.5 mg tablet See Rx Instructions .ROUTE .COMPLEX Qty: 180 3RF Dose Instruction: TAKE 1 TABLET BY MOUTH TWICE DAILY Rx Instructions: TAKE 1 TABLET BY MOUTH TWICE DAILY omeprazole 20 mg capsule,delayed release(DR/EC) 40 mg PO DAILY levothyroxine 88 mcg tablet See Rx Instructions .ROUTE .COMPLEX Rx Instructions: 88 MCG PO ON FRI, SAT, and SUN Discharge Orders: Discharge ED (Routine); Ordered 06/07/23 Ordered By: Randall Rodriguez Referrals: Patrice Juan MD [Primary Care Provider] - Discharge Diet: Usual diet Discharge Activity: Use walker/crutches as instructed Patient Instructions: Leg Fracture (ED), Opioid Safety, Pain Management Activity Restrictions/Additional Instructions: Continue taking your hydrocodone at home for pain. Follow-up with orthopedics as discussed. Rest, ice, compression, and elevation. Nonweightbearing. Follow-up with primary care as needed. Return with any new or concerning symptoms you may have. 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
[2023-06-07 23:45] VITALS: BP 121/78; PULSE 70; RESP 18; TEMP 36.7; O2SAT 97
--- NOTE | 2023-06-10 08:38 | DCPLANNER ---
Sent follow up to ortho
== END 2023-06-07 23:50 | disposition home or self-care (01) ==
PROVIDERS: Emergency Provider Physician Assistant; PCP Family Medicine
DX: S82.61XA Displaced fracture of lateral malleolus of right fibula, initial encounter for closed fracture (principal); Z79.82 Long term (current) use of aspirin; Z77.22 Contact with and (suspected) exposure to environmental tobacco smoke (acute) (chronic); I42.8 Other cardiomyopathies; I50.9 Heart failure, unspecified; E78.5 Hyperlipidemia, unspecified; W01.0XXA Fall on same level from slipping, tripping and stumbling without subsequent striking against object, initial encounter
CPT/HCPCS: 73610; 73630; 96372; 99284; E0114; J2270

== ENCOUNTER → 2023-06-13 08:47 | Outpatient (BNVA) | payer MEDICARE, MEDICAID, SELFPAY | PROVIDERS: PCP Family Medicine; Visit Provider Podiatrist Foot & Ankle Surgery | DX: S82.401A Unspecified fracture of shaft of right fibula, initial encounter for closed fracture (principal); W01.0XXA Fall on same level from slipping, tripping and stumbling without subsequent striking against object, initial encounter; Z46.89 Encounter for fitting and adjustment of other specified devices; S82.891D Other fracture of right lower leg, subsequent encounter for closed fracture with routine healing; X58.XXXD Exposure to other specified factors, subsequent encounter | CPT/HCPCS: 97760; 99203; L4361 ==

== ENCOUNTER 2023-06-13 11:06 | Outpatient (CLI) | payer MEDICARE, MEDICAID, SELFPAY | END 2023-06-13 11:07 | disposition home or self-care (01) | LOC: SPT 11:09 | PROVIDERS: PCP Family Medicine; Visit Provider Podiatrist Foot & Ankle Surgery | DX: Z46.89 Encounter for fitting and adjustment of other specified devices (principal); S82.891D Other fracture of right lower leg, subsequent encounter for closed fracture with routine healing; X58.XXXD Exposure to other specified factors, subsequent encounter | CPT/HCPCS: 97760; L4361 ==

== ENCOUNTER → 2023-07-04 10:34 | Outpatient (BNVA) | payer MEDICARE, MEDICAID, SELFPAY | PROVIDERS: PCP Family Medicine; Visit Provider Podiatrist Foot & Ankle Surgery | DX: S82.401D Unspecified fracture of shaft of right fibula, subsequent encounter for closed fracture with routine healing; X58.XXXD Exposure to other specified factors, subsequent encounter | CPT/HCPCS: 73610; 99213 ==

== ENCOUNTER 2023-07-04 11:40 | Outpatient (CLI) | payer MEDICARE, MEDICAID, SELFPAY | END 2023-07-04 11:41 | disposition home or self-care (01) | LOC: SPT 11:40 | PROVIDERS: PCP Family Medicine; Visit Provider Podiatrist Foot & Ankle Surgery | DX: Z46.89 Encounter for fitting and adjustment of other specified devices (principal); S82.401D Unspecified fracture of shaft of right fibula, subsequent encounter for closed fracture with routine healing; X58.XXXD Exposure to other specified factors, subsequent encounter | CPT/HCPCS: 97760; L1902 ==

== ENCOUNTER 2023-07-11 12:57 | Emergency (ER) | payer MEDICARE, MEDICAID, SELFPAY ==
--- NOTE | 2023-07-11 12:59 | ECG_ITS ---
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 Measurements Intervals [place] Rate: 61 P: 42 IN: 178 QRS: -44 QRSD: 102 T: 59 QT: 404 QTc: 409 Interpretive Statements SINUS RHYTHM LEFT AXIS DEVIATION [QRS AXIS < -30] LOW QRS VOLTAGE IN PRECORDIAL LEADS [QRS DEFLECTION < 1.0 mV IN CHEST LEADS] Compared to ECG 02/07/2022 19:50:24 Low QRS voltage now present Sinus bradycardia no longer present Electronically Signed On 07-11-2023 16:19:16 CDT by Jeronimo Moreira M.D. [id number]
--- NOTE | 2023-07-11 12:59 | XRR_ITS ---
PROCEDURE INFORMATION: Exam: XR Chest Exam date and time: 07/11/2023 1:38 PM Age: 62 years old Clinical indication: Pain; Angina pectoris; Additional info: Chest pain TECHNIQUE: Imaging protocol: Radiologic exam of the chest. Views: 1 view. COMPARISON: CT chest con [id number] 03/03/2023 10:01 AM FINDINGS: Lungs: Unremarkable. No consolidation. Pleural spaces: Unremarkable. No pleural effusion. No pneumothorax. Heart/Mediastinum: Unremarkable. No cardiomegaly. Bones/joints: Unremarkable. XR/XR chest 1V portable [id number] IMPRESSION: No acute findings.
[2023-07-11 13:06] VITALS: BP 94/63; PULSE 61; RESP 18; TEMP 36.8; O2SAT 97; BMI 34.4
[2023-07-11 13:39] LABS: Basophils % 0.4 %; Eosinophils # 0.1 10^3/uL (0.0-0.8); Eosinophils % 1.8 %; Hematocrit 39.9 % (36-47); Lymphocytes % 20.4 %; Mean Corpuscular HGB Conc 32.3 g/dL (30-55); Mean Corpuscular Hemoglobin 30.8 pg (27-33); Mean Corpuscular Volume 95.2 fl (85-98); Mean Platelet Volume 9.4 fL (7.4-10.4); Monocytes # 0.4 10^3/uL (0.2-0.9); Monocytes % 8.6 %; Neutrophils # 3.41 10^3/uL (1.8-7.7); Neutrophils % 68.4 %; Nucleated Red Blood Cells % 0 %; Platelet Count 306 10^3/cmm (157-399); Red Blood Count 4.19 10^6/uL (3.85-5.65); Red Cell Distribution Width 12.8 % (12.1-15.1); White Blood Count 4.99 10^3/uL (3.29-11.43)
[2023-07-11 14:04] LABS: Troponin(5th) Baseline 9 ng/L (0-10)
--- NOTE | 2023-07-11 14:10 | W.ED.CHESTPA ---
HPI - Chest Pain General: Chief Complaint: Chest Pain Stated Complaint: chest pressure Time Seen by Provider: 07/11/23 13:17 Source: patient Mode of arrival: ambulatory Limitations: no limitations History of Present Illness: This patient was waiting on a mammogram this morning which was delayed and then rescheduled. She states that she had count of a hot flash and some epigastric discomfort and was not sure if it was chest pain or what symptoms it might represent. She has been having some GI symptoms and had a recent endoscopy and had her PPI changed recently as well. She denied any feelings of palpitations shortness of breath or other associated symptoms. She cannot remember whether she ate or drank anything prior to her presentation to the Mammography clinic this morning. She does not have a history of diabetes or hypoglycemia etc. That she is aware. Review of her history briefly shows that she has a history of nonischemic cardiomyopathy as well as congestive heart failure. Pain location: substernal Pain radiation: none Associated symptoms: Reports abdominal pain; Deny dyspnea, fever(s), palpitations, syncope or vomiting Review of Systems Const: Denies: fever(s) or chills Eyes: Denies: change in vision ENMT: Denies: odynophagia, nasal discharge or nasal congestion Card: Reports: chest pain; Denies: palpitations, syncope or pre-syncope Resp: Denies: dyspnea, productive cough or non-productive cough GI: Reports: abdominal pain; Denies: vomiting, hematochezia or melena : Denies: flank pain, difficulty voiding, dysuria or urinary frequency Musc: Denies: neck pain, back pain, extremity pain or extremity swelling Skin/Breast: Denies: rash Neuro: Denies: headache(s), numbness in extremities or weakness in extremities Psych: Denies: anxiety or depression Saurabh/Lymph: Denies: easy bruising or easy bleeding PFS ED PFSH: Medical History Chronic neck and back pain Opioid contract exists Cystitis Treat with Augmentin 875 mg twice daily for 10 days she did have a previous E. coli UTI which was treated with Bactrim unfortunately organism was resistant to Bactrim. Discussed with patient first and is to return make sure bladder is clear of infection may then need to consider urodynamics and cystoscopy to further evaluate her bladder. Meantime she will maintain a bladder diary and document her frequency urgency to be interesting to see if it is better with treatment of her cystitis. Nonischemic cardiomyopathy Congestive heart failure Morbid obesity Dyslipidemia Back Pain Encounter for long-term use of opiate analgesic Sleep apnea Anemia Seizures Laceration of both fallopian tubes FH: cholecystectomy Surgical History Status post small bowel resection History of colon resection Status post partial hysterectomy GUY with USO Dr. Husain 2003 Family History Mother Cancer Colon cancer Grandmother Cancer Breast Other CAD (coronary artery disease) Diabetes Social History Smoking and tobacco/nicotine status: never used tobacco/nicotine Second hand smoke exposure: Yes Alcohol intake: current Alcohol intake frequency: holidays/special occasions only Alcohol type: wine and other Substance/Drug Use: never Physical Exam Narrative: EXAM NARRATIVE: She is alert appears to be in no acute distress she is cooperative. Const: COMMON NORMALS: no acute distress and patient oriented x3 GENERAL APPEARANCE: cooperative NUTRITIONAL APPEARANCE: obese HENMT: COMMON NORMALS: normocephalic, Normal nasal mucous membranes and turbinates present, moist oral mucous membranes and oropharynx normal HEAD & SCALP: normocephalic FACE & SINUS: normal facial exam NOSE: Normal nasal mucous membranes and turbinates present Eye: COMMON NORMALS: Equal, round and reactive pupils present, conjunctivae normal and normal visual almaraz by confrontation CONJUNCTIVA: Yes conjunctivae normal PUPIL: Yes Equal, round and reactive pupils present Neck/C-Spine: COMMON NORMALS: full ROM, no lymphadenopathy, no JVD and No carotid bruits Chest: COMMONS NORMALS: normal inspection of the chest and normal palpation of entire chest wall Resp: COMMON NORMALS: normal respiratory effort, No retractions, No use of accessory muscles and clear to auscultation bilaterally AUSCULTATION: clear to auscultation bilaterally Cardio: COMMON NORMALS: no JVD, regular rhythm, No murmurs present (Cardio) and Peripheral pulses 2+ throughout RHYTHM: regular rhythm PERIPHERAL PULSES: Peripheral pulses 2+ throughout GI: INSPECTION: Yes central obesity OTHER: Examination of abdomen reveals tenderness in the epigastrium without rebound or guarding. She has no other abdominal tenderness or masses noted. : COMMON NORMALS: Yes no CVA tenderness BLADDER/KIDNEY EXAM: Yes no CVA tenderness Back/Pelvis: COMMON NORMALS: no CVA tenderness, thoracic and lumbar spine normal to inspection and thoraco-lumbar ROM normal Extremity: COMMON NORMALS: normal to inspection, full ROM, capillary refill normal and no calf tenderness Neuro: COMMON NORMALS: patient oriented x3, moves all extremities and no focal motor deficits CRANIAL NERVES: Yes CN normal except as noted Psych: COMMON NORMALS: mental status grossly normal Skin: COMMON NORMALS: no rashes or lesions noted, no wounds and turgor normal GENERAL SKIN EXAM: no rashes or lesions noted and turgor normal Course Reevaluation(s): Reevaluation #1: Patient's not having more of her heartburn symptoms. After she did receive H2 fadi as well as Carafate. Her troponins are unremarkable serial EKGs are also unremarkable. Discussed current findings and outpatient follow-up. Discussed return precautions as well. Time: 16:11 Vital Signs: Vital signs: Vital Signs Temperature 98.2 F 07/11/23 13:06 Pulse Rate 50 L 07/11/23 15:30 Respiratory Rate 18 07/11/23 13:06 Blood Pressure 102/61 07/11/23 15:30 Pulse Oximetry 97 07/11/23 15:30 Oxygen Delivery Me thod Room Air 07/11/23 15:30 MDM - Chest Pain Medical Decision Making This patient made her way to the emergency department because she had an episode of what she calls as heartburn symptoms as well as feeling unwell. She apparently has been waiting for her mammography this morning and that was rescheduled because of her symptoms she was asked by the staff if that she wanted to go to the emergency department at that point she felt like she did want to do so. She denies any history of chest pain with exertion shortness of breath of exertion of recent onset. She denies any fevers chills or other contributing symptoms. She was unclear whether she eaten or drank today. Workup included measures to ensure no evidence of ACS pneumonia, heart failure etc. Imaging, laboratories serial EKGs were obtained. Her serial troponins remained unremarkable as well as her x-ray and EKGs. She was given empiric therapy of H2 fadi as well as Carafate which improved her symptoms. Given the fact that she has had no other evidence to suggest ACS this is unlikely at this point. Will discharge her on continued PPI as well usual medications and add Carafate to her regimen for a 2-week interval. Medical Records I reviewed the patient's medical records. No history of coronary artery disease does have a history of nonischemic cardiomyopathy. Lab Data I reviewed the patient's lab results. 07/11/23 13:18 07/11/23 13:18 Radiology Impressions Chest X-Ray 07/11/23 12:59 IMPRESSION: No acute findings. ADDENDUM: 07/11/23 1424 ADDENDUM: There is a 2 cm nodule in the left upper lobe which is not obviously changed. There is also a small amount of scarring, atelectasis, and/or pneumonitis in the left lung base. It is unclear if this is changed. Laboratory Results WBC 4.99 10^3/uL (3.29-11.43) 07/11/23 13:18 RBC 4.19 10^6/uL (3.85-5.65) 07/11/23 13:18 Hgb 12.90 g/dL (11.27-16.99) 07/11/23 13:18 Hct 39.9 % (36-47) 07/11/23 13:18 MCV 95.2 fl (85-98) 07/11/23 13:18 MCH 30.8 pg (27-33) 07/11/23 13:18 MCHC 32.3 g/dL (30-55) 07/11/23 13:18 RDW 12.8 % (12.1-15.1) 07/11/23 13:18 Plt Count 306 10^3/cmm (157-399) 07/11/23 13:18 MPV 9.4 fL (7.4-10.4) 07/11/23 13:18 Neut % (Auto) 68.4 % 07/11/23 13:18 Lymph % (Auto) 20.4 % 07/11/23 13:18 [place] % (Auto) 8.6 % 07/11/23 13:18 Eos % (Auto) 1.8 % 07/11/23 13:18 Baso % (Auto) 0.4 % 07/11/23 13:18 Neut # (Auto) 3.41 10^3/uL (1.8-7.7) 07/11/23 13:18 Lymph # (Auto) 1.0 10^3/uL (0.8-4.8) 07/11/23 13:18 [place] # (Auto) 0.4 10^3/uL (0.2-0.9) 07/11/23 13:18 Eos # (Auto) 0.1 10^3/uL (0.0-0.8) 07/11/23 13:18 Baso # (Auto) 0.0 10^3/uL (0.0-0.1) 07/11/23 13:18 Nucleated RBC % (auto) 0 % 07/11/23 13:18 Nucleated RBCs # 0.0 /100WBC 07/11/23 13:18 Sodium 136 mmol/L (136-145) 07/11/23 13:18 Potassium 4.7 mmol/L (3.5-5.1) 07/11/23 13:18 Chloride 101 mmol/L (98-107) 07/11/23 13:18 Carbon Dioxide 26 mmol/L (22-29) 07/11/23 13:18 Anion Gap 13.7 (5-19) 07/11/23 13:18 BUN 22 mg/dL (8-23) 07/11/23 13:18 Creatinine 0.9 mg/dL (0.5-0.9) 07/11/23 13:18 GFR Calculation 63.7 mL/min (90-130) L 07/11/23 13:18 Glucose 96 mg/dL (65-115) 07/11/23 13:18 Calculated Osmolality 285 mOsm/kg (285-295) 07/11/23 13:18 Calcium 8.8 mg/dL (8.5-10.5) 07/11/23 13:18 Total Bilirubin 0.5 mg/dL (0.15-1.2) 07/11/23 13:18 AST 15 U/L (0-32) 07/11/23 13:18 ALT 9 U/L (0-33) 07/11/23 13:18 Alkaline Phosphatase 157 U/L (35-105) H 07/11/23 13:18 Troponin T Baseline 9 ng/L (0-10) 07/11/23 13:18 Troponin T 120 Minute 7.16 ng/L (0-10) 07/11/23 15:06 Delta Troponin T -1.84 ABS# (0-10) L 07/11/23 15:06 NT-Pro-B Natriuret Pep < 36 pg/mL (0-125) 07/11/23 13:18 Total Protein 7.2 g/dL (6.6-8.7) 07/11/23 13:18 Albumin 4.6 g/dL (3.5-5.2) 07/11/23 13:18 Globulin 2.6 g/dL (1.3-4.6) 07/11/23 13:18 All radiology interpretation(s) finalized by discharge EKG Data EKG 1: I personally reviewed and interpreted this EKG as follows: Interpretation: Normal AL interval, QRS duration, corrected QT interval. Consistent with normal sinus rhythm. Does have a left axis deviation consistent with possible left anterior Heema block. No acute ST-T wave changes noted. Discharge Plan Discharge Patient Disposition: Home Clinical Impression: Gastroesophageal reflux Qualifiers: Esophagitis presence: esophagitis presence not specified Qualified Code(s): K21.9 - Gastro-esophageal reflux disease without esophagitis Condition: Stable Prescriptions: New sucralfate [Carafate] 1 gram tablet 1 g PO TID 28 Days Qty: 84 0RF No Action nitroglycerin 0.4 mg tablet, sublingual 0.4 mg SUBLINGUAL Q5M PRN (Reason: Chest Pain) Rx Instructions: do not exceed 3 doses per episode levetiracetam 750 mg tablet 1,500 mg PO BID levothyroxine 100 mcg capsule See Rx Instructions .ROUTE .COMPLEX Rx Instructions: TAKE 100 mcg BY MOUTH ON MON,,MON,. aspirin [Vicki Chewable Aspirin] 81 mg tablet,chewable 81 mg PO DAILY (DME) CAM Boot See Rx Instructions .Route .MEDSUPPLY Qty: 1 0RF Rx Instructions: As directed (DME) BLAKE gallardo See Rx Instructions .Route .MEDSUPPLY Qty: 1 0RF Rx Instructions: As directed lisinopril 10 mg tablet 10 mg PO BID Qty: 180 3RF albuterol sulfate 90 mcg/actuation HFA aerosol inhaler 1 inh inhalation QID PRN (Reason: shortness of breath or wheezing) Qty: 8.5 6RF levothyroxine 88 mcg tablet See Rx Instructions .ROUTE .COMPLEX Rx Instructions: TAKE 88 MCG BY MOUTH ON FRI, SAT, and SUN. ondansetron HCl 8 mg tablet 8 mg PO Q8H PRN (Reason: Nausea) hydrocodone-acetaminophen 7.5-325 mg tablet 1 tab PO Q4H PRN (Reason: Pain) lamotrigine 100 mg tablet 100 mg PO BID carvedilol 12.5 mg tablet 12.5 mg PO BID gabapentin 800 mg tablet 800 mg PO QID PRN (Reason: NERVE PAIN) Rx Instructions: Symbicort 80-4.5 mcg/actuation HFA aerosol inhaler 1 puff inhalation DAILY PRN (Reason: Shortness Of Breath) triamcinolone acetonide 0.1 % cream 1 applic TOPICAL TID PRN (Reason: Skin Irritation) pantoprazole 40 mg tablet,delayed release (DR/EC) 40 mg PO DAILY Discharge Orders: Discharge ED (Routine); Ordered 07/11/23 Ordered By: Donovan Luis Referrals: Patrice Juan MD [Primary Care Provider] - Discharge Diet: Usual diet Discharge Activity: Increase activity as tolerated Patient Instructions: Opioid Safety, Pain Management Activity Restrictions/Additional Instructions: As we discussed your evaluation in the emergency department today did not reveal any findings which suggest you are having a heart attack or heart failure or other serious condition today. We have added an additional medicine to help with your reflux and stomach issues. Continue all your other usual medications. If you have any sustained chest pain shortness of breath or other concerning symptoms you are welcome to return to the emergency department at any time for reevaluation. Coding Level of Care Code ED Interior Design Program Chair for Kendal Sutherland
[2023-07-11 14:14] LABS: Alanine Aminotransferase 9 U/L (0-33); Albumin Level 4.6 g/dL (3.5-5.2); Alkaline Phosphatase 157 U/L (35-105); Anion Gap 13.7 (5-19); Aspartate Amino Transferase 15 U/L (0-32); Blood Urea Nitrogen 22 mg/dL (8-23); Calcium 8.8 mg/dL (8.5-10.5); Carbon Dioxide 26 mmol/L (22-29); Chloride 101 mmol/L (98-107); Creatinine Clr Calc Pharmacy 71.8016; Globulin 2.6 g/dL (1.3-4.6); Glomerular Filtration Rate 63.7 mL/min (90-130); Glucose 96 mg/dL (65-115); NT Pro B Type Natriuretic Pept < 36 pg/mL (0-125); Osmolality Calculated 285 mOsm/kg (285-295); Potassium 4.7 mmol/L (3.5-5.1); Sodium 136 mmol/L (136-145); Total Bilirubin 0.5 mg/dL (0.15-1.2); Total Protein 7.2 g/dL (6.6-8.7)
[2023-07-11] MEDS: famotidine 20 mg/2 mL INJ 40 MG IVP (14:25)
[2023-07-11] MEDS: sucralfate 1 gm/10 mL Oral Liq UDC PO (14:25)
[2023-07-11 14:28] VITALS: BP 90/73; PULSE 49; O2SAT 98
--- NOTE | 2023-07-11 15:00 | ECG_ITS ---
[facility] Test Date: 2023-07-11 Pat Name: Peggy Tejada Department: Room: Gender: Female Coordinator Cardiopulmonary Services: : 1960 Requested By: Karie Sanchez Order Number: [id number] Everardo MD: Jeronimo Moreira M.D. Measurements Intervals [place] Rate: 48 P: 42 NV: 182 QRS: -33 QRSD: 106 T: 23 QT: 459 QTc: 412 Interpretive Statements SINUS BRADYCARDIA LEFT AXIS DEVIATION [QRS AXIS < -30] Compared to ECG 07/11/2023 13:01:07 Sinus rhythm no longer present Electronically Signed On 07-11-2023 16:19:33 CDT by Jeronimo Moreira M.D. [email or web address]
[2023-07-11 15:30] VITALS: BP 102/61; PULSE 50; O2SAT 97
[2023-07-11 15:36] LABS: Troponin 5 2HR 7.16 ng/L (0-10)
[2023-07-11 15:39] LABS: Troponin 5 2HR Delta -1.84 ABS# (0-10)
[2023-07-11 16:36] VITALS: BP 112/58; PULSE 50; O2SAT 97
== END 2023-07-11 16:48 | disposition home or self-care (01) ==
PROVIDERS: Physician Assistant; Emergency Provider Emergency Medicine; PCP Family Medicine
DX: K21.9 Gastro-esophageal reflux disease without esophagitis (principal); Z79.82 Long term (current) use of aspirin; Z77.22 Contact with and (suspected) exposure to environmental tobacco smoke (acute) (chronic); I42.8 Other cardiomyopathies; E78.5 Hyperlipidemia, unspecified
CPT/HCPCS: 36415; 71045; 80053; 83880; 84484; 85025; 93005; 96374; 99285; J3490

== ENCOUNTER 2023-07-18 15:07 | Outpatient (CLI) | payer MEDICARE, MEDICAID, SELFPAY ==
--- NOTE | 2023-07-18 15:18 | MM_ITS ---
WS: [id number] BILATERAL 3D TOMOSYNTHESIS DIGITAL SCREENING MAMMOGRAPHY WITH CAD CLINICAL INFORMATION: SCREENING HISTORY: Screening mammogram. No current complaints. COMPARISON: 2022 TECHNIQUE: Bilateral CC and MLO views. FINDINGS: Scattered fibroglandular densities bilaterally. No suspicious focal mass, asymmetry, calcifications, or architectural distortion. No evidence of malignancy. Vascular calcification. MM/[place] [id number] IMPRESSION: BI-RADS: 2-Benign FOLLOW UP: 1 Year Follow-up Recommend return to annual screening mammography.
== END 2023-07-18 15:08 | disposition home or self-care (01) ==
LOC: RAD 15:09
PROVIDERS: PCP Family Medicine; Visit Provider Family Medicine
DX: S82.401A Unspecified fracture of shaft of right fibula, initial encounter for closed fracture (principal); X58.XXXA Exposure to other specified factors, initial encounter
CPT/HCPCS: 73610; 77063; 77067; 99213

== ENCOUNTER → 2023-08-22 09:28 | Outpatient (BNVA) | payer MEDICARE, MEDICAID, SELFPAY | PROVIDERS: PCP Family Medicine; Visit Provider Podiatrist Foot & Ankle Surgery | DX: S82.401A Unspecified fracture of shaft of right fibula, initial encounter for closed fracture; G56.21 Lesion of ulnar nerve, right upper limb; G56.01 Carpal tunnel syndrome, right upper limb; X58.XXXA Exposure to other specified factors, initial encounter | CPT/HCPCS: 73610; 95910; 99213 ==

== ENCOUNTER → 2023-09-12 15:44 | Outpatient (BNVA) | payer MEDICARE, MEDICAID, SELFPAY | PROVIDERS: PCP Family Medicine; Visit Provider Internal Medicine | DX: I11.0 Hypertensive heart disease with heart failure (principal); I50.9 Heart failure, unspecified; G47.30 Sleep apnea, unspecified; I42.8 Other cardiomyopathies; E66.01 Morbid (severe) obesity due to excess calories; E78.5 Hyperlipidemia, unspecified; R06.09 Other forms of dyspnea; Z68.33 Body mass index [BMI] 33.0-33.9, adult | CPT/HCPCS: 99214 ==

== ENCOUNTER → 2024-02-13 14:54 | Outpatient (BNVA) | payer MEDICARE, MEDICAID, SELFPAY | PROVIDERS: PCP Family Medicine; Referring Provider Family Medicine; Visit Provider Specialist | DX: G56.10 Other lesions of median nerve, unspecified upper limb (principal); G56.21 Lesion of ulnar nerve, right upper limb; G56.01 Carpal tunnel syndrome, right upper limb; R29.898 Other symptoms and signs involving the musculoskeletal system | CPT/HCPCS: 95885; 95907; 99202 ==

== ENCOUNTER 2024-05-31 11:49 | Outpatient (CLI) | payer MEDICARE, MEDICAID, SELFPAY ==
--- NOTE | 2024-05-31 12:02 | CT_ITS ---
WS: [id number] CT chest wo con [id number] HISTORY: LUNG NODULE TECHNIQUE: Axial imaging performed through the thorax. Coronal and sagittal reformats are submitted. All CT scans at [facility] use at least one of these dose optimization techniques: automated exposure control; mA and/or kV adjustment per patient size (includes targeted exams where dose is matched to clinical indication); or iterative reconstruction. CONTRAST: None DLP: 478.75 mGy.cm COMPARISON: PET/CT 04/25/2023, chest CT 03/03/2023, 12/21/2021 and 04/05/2006 Lungs and central airway: Lungs are well expanded. Long-term stability of an FDG negative nodule in the LEFT upper lobe site. Solid nodule measures 16 x 16 mm and is stable over multiple years. Minimal scar or atelectasis at the lingula. No new mass or pulmonary nodule. Pleura: Normal. No pleural effusion. Heart and pericardium: Normal size heart with no pericardial effusion. Mediastinum and price: No mediastinum or hilar adenopathy. Vessels: Minimal atherosclerosis aorta. Chest wall and lower neck: No soft tissue masses. Upper abdomen: Stable LEFT adrenal adenoma measuring 2.0 cm. Normal RIGHT adrenal gland. Prior cholecystectomy. Osseous structures: No destructive process. CT/CT chest wo con [id number] IMPRESSION: 1. Long-term stability LEFT upper lobe pulmonary nodule which is also FDG nega tive. 2. No new pulmonary nodule or mass. No pneumonia. 3. Prior cholecystectomy. 4. LEFT adrenal adenoma, stable.
== END 2024-05-31 11:50 | disposition home or self-care (01) ==
LOC: RAD 11:54
PROVIDERS: PCP Family Medicine; Visit Provider Family Medicine
DX: R91.1 Solitary pulmonary nodule (principal); Z90.49 Acquired absence of other specified parts of digestive tract; D35.02 Benign neoplasm of left adrenal gland
CPT/HCPCS: 71250

== ENCOUNTER → 2024-06-11 15:11 | Outpatient (BNVA) | payer MEDICARE, MEDICAID, SELFPAY | PROVIDERS: PCP Family Medicine; Visit Provider Internal Medicine | DX: I11.0 Hypertensive heart disease with heart failure (principal); I50.9 Heart failure, unspecified; E66.01 Morbid (severe) obesity due to excess calories; Z68.35 Body mass index [BMI] 35.0-35.9, adult; I42.8 Other cardiomyopathies; E78.5 Hyperlipidemia, unspecified; G47.30 Sleep apnea, unspecified; R06.09 Other forms of dyspnea; Z79.82 Long term (current) use of aspirin | CPT/HCPCS: 99213 ==

== ENCOUNTER → 2024-07-05 10:28 | Outpatient (BNVA) | payer MEDICARE, MEDICAID, SELFPAY | PROVIDERS: PCP Family Medicine; Visit Provider Physician Assistant | DX: G56.01 Carpal tunnel syndrome, right upper limb (principal) | CPT/HCPCS: 73110; 99214 ==

== ENCOUNTER 2024-07-27 17:21 | Emergency (ER) | payer MEDICARE, MEDICAID, SELFPAY ==
[2024-07-27 17:23] VITALS: BP 156/75; PULSE 62; RESP 18; TEMP 36.8; O2SAT 98; BMI 35.0
--- NOTE | 2024-07-27 17:34 | W.ED.GENADLT ---
HPI - General Adult General: Chief complaint: General Medical Stated complaint: chest tightness Time Seen by Provider: 07/27/24 17:23 History of Present Illness: Patient is 63-year-old female with history of seizures, on Keppra, compliant, that presented due to nausea, and a taste in her mouth like she has had in the past before she had a seizure. She states her nausea has been coming on all day. She does have a lot of stress right now with some personal issues. She has not had any emesis. Last Zofran: 1500. Patient states she does feel better and will try oral intake. She did not have a seizure just the sensation that she might. Associated symptoms: Reports nausea; Deny chest pain, dyspnea, headache(s), rash, palpitations or vomiting Related Data Home Medications ?Medication ?Instructions ?Recorded ?Confirmed levetiracetam 750 mg tablet 1,500 mg PO BID 02/25/19 07/05/24 aspirin 81 mg chewable tablet 81 mg PO DAILY 04/08/19 07/05/24 (Vicki Chewable Low Dose Aspirin) nitroglycerin 0.4 mg sublingual 0.4 mg sublingual Q5M PRN Chest 09/16/19 07/05/24 tablet Pain levothyroxine 100 mcg capsule See Rx Instructions .Route .COMPLEX 03/09/23 07/05/24 levothyroxine 88 mcg tablet See Rx Instructions .Route .COMPLEX 03/09/23 07/05/24 budesonide-formoterol HFA 80 1 puff inhalation DAILY PRN 07/11/23 07/05/24 mcg-4.5 mcg/actuation aerosol Shortness Of Breath inhaler (Symbicort) gabapentin 800 mg tablet 800 mg PO QID PRN NERVE PAIN 07/11/23 07/05/24 hydrocodone 7.5 mg-acetaminophen 1 tab PO Q4H PRN Pain 07/11/23 07/05/24 325 mg tablet ondansetron HCl 8 mg tablet 8 mg PO Q8H PRN Nausea 07/11/23 07/05/24 pantoprazole 40 mg tablet,delayed 40 mg PO DAILY 07/11/23 07/05/24 release rosuvastatin 20 mg tablet mg PO QDAY 07/05/24 07/05/24 Previous Rx's ?Medication ?Instructions ?Recorded CAM Boot #1 ea 06/13/23 ASO brace #1 ea 07/04/23 albuterol sulfate 90 mcg/actuation 1 inh inhalation QID PRN shortness 07/10/23 aerosol inhaler of breath or wheezing #8.5 grams lisinopril 10 mg tablet 10 mg PO BID #180 tabs 04/10/24 carvedilol 12.5 mg tablet See Rx Instructions .Route 05/30/24 .COMPLEX #180 tabs ondansetron 4 mg disintegrating 4 mg PO Q8H PRN nausea and 07/27/24 tablet vomiting 4 days #10 tabs Allergies Allergy/AdvReac Type Severity Reaction Status Date / Time adhesive Allergy rash and Verified 07/05/24 10:30 itching promethazine Allergy nausea and Verified 07/05/24 10:30 vomiting Review of Systems General: Reports: 10 or more systems reviewed and unremarkable except in HPI and below Const: Denies: fever(s) or chills Eyes: Denies: change in vision or blurry vision ENMT: Reports: dry mouth; Denies: throat pain or mouth pain Card: Reports: pre-syncope; Denies: chest pain or palpitations Resp: Denies: dyspnea or non-productive cough GI: Reports: nausea; Denies: abdominal pain or vomiting : Denies: flank pain or difficulty voiding Musc: Denies: neck pain or back pain Skin/Breast: Denies: rash or pruritus Neuro: Denies: headache(s) or numbness in extremities Psych: Reports: anxiety; Denies: depression All/Imm: Denies: urticaria or throat swelling PFS ED PFSH: Medical History Carpal tunnel syndrome of right wrist Chronic neck and back pain Opioid contract exists Cystitis Treat with Augmentin 875 mg twice daily for 10 days she did have a previous E. coli UTI which was treated with Bactrim unfortunately organism was resistant to Bactrim. Discussed with patient first and is to return make sure bladder is clear of infection may then need to consider urodynamics and cystoscopy to further evaluate her bladder. Meantime she will maintain a bladder diary and document her frequency urgency to be interesting to see if it is better with treatment of her cystitis. Nonischemic cardiomyopathy Congestive heart failure Morbid obesity Dyslipidemia Back Pain Encounter for long-term use of opiate analgesic Sleep apnea Anemia Seizures Laceration of both fallopian tubes FH: cholecystectomy Surgical History Status post small bowel resection History of colon resection Status post partial hysterectomy GUY with USO Dr. Husain 2003 Family History Mother Cancer Colon cancer Grandmother Cancer Breast Other CAD (coronary artery disease) Diabetes Social History Smoking and tobacco/nicotine status: never used tobacco/nicotine Second hand smoke exposure: Yes Alcohol intake: current Alcohol intake frequency: holidays/special occasions only Alcohol type: wine and other Substance/Drug Use: never Physical Exam Const: COMMON NORMALS: no acute distress, average body habitus, patient oriented x3, no limitations and alert GENERAL APPEARANCE: cooperative, comfortable, well kempt and well developed NUTRITIONAL APPEARANCE: not cachectic ORIENTATION/CONSCIOUSNESS: Yes awake, Yes oriented to person, Yes oriented to place and Yes oriented to time HENMT: COMMON NORMALS: normocephalic, atraumatic and hearing grossly normal bilaterally HEAD & SCALP: normocephalic and atraumatic FACE & SINUS: normal facial exam MOUTH: Normal oral and palatal mucosa present, lip normal and tongue normal THROAT: posterior oropharynx normal Eye: COMMON NORMALS: Equal, round and reactive pupils present, EOMs intact bilaterally, conjunctivae normal and no scleral icterus CONJUNCTIVA: Yes conjunctivae normal PUPIL: Yes Equal, round and reactive pupils present Neck/C-Spine: COMMON NORMALS: full ROM and no lymphadenopathy Lymph: LYMPHATIC: no lymphadenopathy noted Chest: COMMONS NORMALS: normal inspection of the chest and normal palpation of entire chest wall Resp: COMMON NORMALS: normal respiratory effort and clear to auscultation bilaterally EFFORT & INSPECTION: Yes able to speak in complete sentences AUSCULTATION: clear to auscultation bilaterally Cardio: COMMON NORMALS: regular rate and regular rhythm RATE: regular rate RHYTHM: regular rhythm GI: COMMON NORMALS: Normal to inspection, nondistended, normoactive bowel sounds present, Soft to palpation and non-tender AUSCULTATION: Yes normoactive bowel sounds PALPATION: Yes Soft to palpation : COMMON NORMALS: Yes no CVA tenderness BLADDER/KIDNEY EXAM: Yes no CVA tenderness Back/Pelvis: COMMON NORMALS: no CVA tenderness Extremity: COMMON NORMALS: normal to inspection and full ROM Neuro: COMMON NORMALS: patient oriented x3 SENSORIUM/ORIENTATION: Yes alert, Yes oriented to person, Yes oriented to place and Yes oriented to time SPEECH: speech normal GAIT: Yes Normal gait present Psych: APPEARANCE: Yes well kempt ATTITUDE: Yes calm ACTIVITY/MOTOR BEHAVIOR: Yes appropriate eye contact Course Vital Signs: Vital signs: Vital Signs Temperature 98.2 F 07/27/24 17:23 Pulse Rate 52 L 07/27/24 18:38 Respiratory Rate 16 07/27/24 18:38 Blood Pressure 124/73 07/27/24 18:38 Pulse Oximetry 94 07/27/24 18:38 Oxygen Delivery Me thod Room Air 07/27/24 17:23 MDM - General Adult Medical Decision Making Patient is a 63-year-old female that presented to the ED with an aura of a taste in her mouth, nausea. She has not had this aura since a seizure multiple years ago. She has been compliant to her medications. She did have association of nausea, and therefore took a Zofran at 1500 at home. No additional findings were noted on workup. Abdominal exam was benign. Patient's taste of aura went away without seizure activity. She will be sent home with nausea/antiemetics and follow-up with her primary doctor. Patient's questions answered to her satisfaction. Lab Data 07/27/24 17:02 07/27/24 17:02 Laboratory Results WBC 4.74 10^3/uL (3.29-11.43) 07/27/24 17:02 RBC 3.98 10^6/uL (3.85-5.65) 07/27/24 17:02 Hgb 12.20 g/dL (11.27-16.99) 07/27/24 17:02 Hct 37.7 % (36-47) 07/27/24 17:02 MCV 94.7 fl (85-98) 07/27/24 17:02 MCH 30.7 pg (27-33) 07/27/24 17:02 MCHC 32.4 g/dL (30-55) 07/27/24 17:02 RDW 13.0 % (12.1-15.1) 07/27/24 17:02 Plt Count 224 10^3/cmm (157-399) 07/27/24 17:02 MPV 9.8 fL (7.4-10.4) 07/27/24 17:02 Neut % (Auto) 53.4 % 07/27/24 17:02 Lymph % (Auto) 29.3 % 07/27/24 17:02 Meagher % (Auto) 10.1 % 07/27/24 17:02 Eos % (Auto) 6.8 % 07/27/24 17:02 Baso % (Auto) 0.2 % 07/27/24 17:02 Neut # (Auto) 2.53 10^3/uL (1.8-7.7) 07/27/24 17:02 Lymph # (Auto) 1.4 10^3/uL (0.8-4.8) 07/27/24 17:02 Meagher # (Auto) 0.5 10^3/uL (0.2-0.9) 07/27/24 17:02 Eos # (Auto) 0.3 10^3/uL (0.0-0.8) 07/27/24 17:02 Baso # (Auto) 0.0 10^3/uL (0.0-0.1) 07/27/24 17:02 Nucleated RBC % (auto) 0 % 07/27/24 17:02 Nucleated RBCs # 0.0 /100WBC 07/27/24 17:02 Sodium 143 mmol/L (136-145) 07/27/24 17:02 Potassium 3.9 mmol/L (3.5-5.1) 07/27/24 17:02 Chloride 107 mmol/L (98-107) 07/27/24 17:02 Carbon Dioxide 23 mmol/L (22-29) 07/27/24 17:02 Anion Gap 16.9 (5-19) 07/27/24 17:02 BUN 9 mg/dL (8-23) 07/27/24 17:02 Creatinine 0.6 mg/dL (0.5-0.9) 07/27/24 17:02 GFR Calculation 101.3 mL/min (90-130) 07/27/24 17:02 Glucose 101 mg/dL (65-115) 07/27/24 17:02 Calculated Osmolality 295 mOsm/kg (285-295) 07/27/24 17:02 Calcium 8.5 mg/dL (8.5-10.5) 07/27/24 17:02 Total Bilirubin 0.4 mg/dL (0.15-1.2) 07/27/24 17:02 AST 21 U/L (0-32) 07/27/24 17:02 ALT 13 U/L (0-33) 07/27/24 17:02 Alkaline Phosphatase 125 U/L (35-105) H 07/27/24 17:02 Total Protein 6.6 g/dL (6.6-8.7) 07/27/24 17:02 Albumin 3.9 g/dL (3.5-5.2) 07/27/24 17:02 Globulin 2.7 g/dL (1.3-4.6) 07/27/24 17:02 Lipase 38 U/L (13-60) 07/27/24 17:02 Urine Color Yellow (Yellow) 07/27/24 17:57 Urine Appearance Clear (CLEAR) 07/27/24 17:57 Urine pH 6.0 (5-7) 07/27/24 17:57 Ur Specific [place] 1.019 (1.005-1.030) 07/27/24 17:57 Urine Protein Negative (Negative) 07/27/24 17:57 Urine Glucose (UA) Negative (Normal) 07/27/24 17:57 Urine Ketones Negative (Negative) 07/27/24 17:57 Urine Blood Negative (Negative) 07/27/24 17:57 Urine Nitrate Negative (Negative) 07/27/24 17:57 Urine Bilirubin Negative (Negative) 07/27/24 17:57 Urine Urobilinogen 1.0 mg/dL (Negative) 07/27/24 17:57 Ur Leukocyte Esterase Negative (Negative) 07/27/24 17:57 Urine RBC 0-2 /hpf (0-2) 07/27/24 17:57 Urine WBC 0-5 /hpf (0-5) 07/27/24 17:57 Ur Squamous Epith Cells 0-5 /hpf (0-5) 07/27/24 17:57 Amorphous Sediment Not Reportable 07/27/24 17:57 Urine Bacteria 1+ /hpf (NONE) H 07/27/24 17:57 Hyaline Casts 0.40 /lpf 07/27/24 17:57 No radiology studies performed this visit Discharge Plan Discharge Patient Disposition: Home Clinical Impression: Nausea alone Condition: Stable Prescriptions: New ondansetron 4 mg tablet,disintegrating 4 mg PO Q8H PRN (Reason: nausea and vomiting) 4 Days Qty: 10 0RF No Action nitroglycerin 0.4 mg tablet, sublingual 0.4 mg SUBLINGUAL Q5M PRN (Reason: Chest Pain) Rx Instructions: do not exceed 3 doses per episode levetiracetam 750 mg tablet 1,500 mg PO BID levothyroxine 100 mcg capsule See Rx Instructions .ROUTE .COMPLEX Rx Instructions: TAKE 100 mcg BY MOUTH ON MON,,MON,. aspirin [Vicki Chewable Aspirin] 81 mg tablet,chewable 81 mg PO DAILY (DME) CAM Boot See Rx Instructions .Route .MEDSUPPLY Qty: 1 0RF Rx Instructions: As directed (DME) ASO brace See Rx Instructions .Route .MEDSUPPLY Qty: 1 0RF Rx Instructions: As directed rosuvastatin 20 mg tablet PO QDAY albuterol sulfate 90 mcg/actuation HFA aerosol inhaler 1 inh inhalation QID PRN (Reason: shortness of breath or wheezing) Qty: 8.5 6RF lisinopril 10 mg tablet 10 mg PO BID Qty: 180 3RF carvedilol 12.5 mg tablet See Rx Instructions .ROUTE .COMPLEX Qty: 180 3RF Dose Instruction: TAKE 1 TABLET BY MOUTH TWICE DAILY Rx Instructions: TAKE 1 TABLET BY MOUTH TWICE DAILY levothyroxine 88 mcg tablet See Rx Instructions .ROUTE .COMPLEX Rx Instructions: TAKE 88 MCG BY MOUTH ON FRI, MON, and SUN. ondansetron HCl 8 mg tablet 8 mg PO Q8H PRN (Reason: Nausea) hydrocodone-acetaminophen 7.5-325 mg tablet 1 tab PO Q4H PRN (Reason: Pain) gabapentin 800 mg tablet 800 mg PO QID PRN (Reason: NERVE PAIN) Rx Instructions: Symbicort 80-4.5 mcg/actuation HFA aerosol inhaler 1 puff inhalation DAILY PRN (Reason: Shortness Of Breath) pantoprazole 40 mg tablet,delayed release (DR/EC) 40 mg PO DAILY Discharge Orders: Discharge ED (Routine); Ordered 07/27/24 Ordered By: Marian Hills Referrals: Patrice Juan MD [Primary Care Provider, Family Practice] Discharge Diet: Full LIquid Discharge Activity: Resume usual activity Patient Instructions: Acute Nausea and Vomiting (ED), Full Liquid Diet Activity Restrictions/Additional Instructions: Full liquid diet, then advance to bland diet if tolerating and no nausea. Use Zofran sparingly as directed. Return to ED for further issues. Is important to follow-up with your primary care physician regarding this visit. Please make appointment on Monday for next week. Print Language: Afghan Coding Level of Care Code ED Astronomy Department Chair for Kendal Sutherland
[2024-07-27 17:44] LABS: Basophils % 0.2 %; Eosinophils # 0.3 10^3/uL (0.0-0.8); Eosinophils % 6.8 %; Hematocrit 37.7 % (36-47); Lymphocytes # 1.4 10^3/uL (0.8-4.8); Lymphocytes % 29.3 %; Mean Corpuscular HGB Conc 32.4 g/dL (30-55); Mean Corpuscular Hemoglobin 30.7 pg (27-33); Mean Corpuscular Volume 94.7 fl (85-98); Mean Platelet Volume 9.8 fL (7.4-10.4); Monocytes # 0.5 10^3/uL (0.2-0.9); Monocytes % 10.1 %; Neutrophils # 2.53 10^3/uL (1.8-7.7); Neutrophils % 53.4 %; Nucleated Red Blood Cells % 0 %; Platelet Count 224 10^3/cmm (157-399); Red Blood Count 3.98 10^6/uL (3.85-5.65); White Blood Count 4.74 10^3/uL (3.29-11.43)
[2024-07-27 17:57] LABS: Alanine Aminotransferase 13 U/L (0-33); Albumin Level 3.9 g/dL (3.5-5.2); Alkaline Phosphatase 125 U/L (35-105); Blood Urea Nitrogen 9 mg/dL (8-23); Calcium 8.5 mg/dL (8.5-10.5); Carbon Dioxide 23 mmol/L (22-29); Chloride 107 mmol/L (98-107); Creatinine Clr Calc Pharmacy 107.1746; Globulin 2.7 g/dL (1.3-4.6); Glomerular Filtration Rate 101.3 mL/min (90-130); Glucose 101 mg/dL (65-115); Lipase 38 U/L (13-60); Osmolality Calculated 295 mOsm/kg (285-295); Sodium 143 mmol/L (136-145); Total Bilirubin 0.4 mg/dL (0.15-1.2); Total Protein 6.6 g/dL (6.6-8.7)
[2024-07-27 18:00] VITALS: BP 125/69; PULSE 60; RESP 16; O2SAT 94
[2024-07-27 18:03] LABS: Bilirubin Urine Negative (Negative); Blood Urine Negative (Negative); Glucose Urine UA Negative (Normal); Ketones Urine Negative (Negative); Leukocyte Esterase Urine Negative (Negative); Nitrate Urine Negative (Negative); Protein Urine Negative (Negative); Specific Gravity, Urine 1.019 (1.005-1.030); Urine Appearance Clear (CLEAR); Urine Color Yellow (Yellow)
[2024-07-27 18:04] LABS: Anion Gap 16.9 (5-19); Aspartate Amino Transferase 21 U/L (0-32); Potassium 3.9 mmol/L (3.5-5.1)
[2024-07-27 18:06] LABS: Add Urine Microscopic? YES; Bacteria Urine 1+ /hpf; RBC Urine 0-2 /hpf (0-2); Squamous Epithelial Cell Urine 0-5 /hpf (0-5); WBC Urine 0-5 /hpf (0-5)
[2024-07-27 18:38] VITALS: BP 124/73; PULSE 52; RESP 16; O2SAT 94
[2024-07-27 19:05] VITALS: BP 133/78; PULSE 60; RESP 16; O2SAT 94
[2024-07-27 19:06] VITALS: BP 133/78; PULSE 60; RESP 16; O2SAT 95
== END 2024-07-27 19:11 | disposition home or self-care (01) ==
PROVIDERS: Emergency Provider Physician Assistant; PCP Family Medicine
DX: R11.0 Nausea (principal); Z79.82 Long term (current) use of aspirin; E78.5 Hyperlipidemia, unspecified; I50.9 Heart failure, unspecified
CPT/HCPCS: 80053; 81001; 83690; 85025; 99283

== ENCOUNTER 2024-08-07 11:16 | Outpatient (CLI) | payer MEDICARE, MEDICAID, SELFPAY ==
--- NOTE | 2024-08-07 11:20 | MM_ITS ---
WS: [id number] BILATERAL 3D TOMOSYNTHESIS DIGITAL SCREENING MAMMOGRAPHY WITH CAD CLINICAL INFORMATION: SCREENING HISTORY: Screening mammogram. No current complaints. COMPARISON: 2023 TECHNIQUE: Bilateral CC and MLO views. FINDINGS: Scattered fibroglandular densities bilaterally. No suspicious focal mass, asymmetry, calcifications, or architectural distortion. No evidence of malignancy. Vascular calcification. MM/MM scr tomosynthesis [id number] IMPRESSION: DENSITY: There are scattered areas of fibroglandular density. BI-RADS: 2 - Benign. FOLLOW UP: 1 Year Follow-up Recommend return to annual screening mammography.
== END 2024-08-07 11:17 | disposition home or self-care (01) ==
LOC: RAD 11:17
PROVIDERS: PCP Family Medicine; Visit Provider Family Medicine
DX: Z12.31 Encounter for screening mammogram for malignant neoplasm of breast (principal)
CPT/HCPCS: 77063; 77067

== ENCOUNTER 2024-08-30 07:22 | Day surgery (SDC) | payer MEDICARE, MEDICAID, SELFPAY ==
--- NOTE | 2024-08-30 06:13 | ANES.PREANE2 ---
Pre-Anesthetic Assessment Height/Weight: Height 5 ft 4 in Preop Diagnosis: Carpal tunnel syndrome Operation Date: 08/30/24 09:05 Proposed Procedures p RIGHT Carpal Tunnel Release Revision(Right) - Glenn Cherry, DO Was Beta [place] taken within 24 hours: Yes Was Clonidine taken within 24 hours: N/A Social No alcohol and No tobacco Exam alert and oriented x 3 Airway Submandibular: within normal limits Mallampati: Class II Comments: Comments: Edentulous Anesthetic Plan ASA status: 3 Anesthesia: MAC Other: No prior issues with anesthesia NPO since yesterday evening History of hypertension on lisinopril and carvedilol GERD, poorly controlled with Protonix. no symptoms currently Hypothyroidism on Synthroid Seizures hx, last seizure 2 years ago. Keppra this am ALESSANDRA, semi compliant PTSD/depression Labs reviewed from 07/27/2024 and acceptable for procedure EKG showing sinus bradycardia with left axis deviation Negative stress test 2021 with echo at that time showing EF of 50 to 55% Plan for MAC anesthesia with local via surgeon Medications/Allergies Home Medications ?Medication ?Instructions ?Recorded ?Confirmed ?Last Taken ?Type levetiracetam 750 mg tablet 1,500 mg PO BID 02/25/19 08/30/24 08/29/24 History aspirin 81 mg chewable tablet 81 mg PO DAILY 04/08/19 08/30/24 07/11/23 History (Vicki Chewable Low Dose Aspirin) nitroglycerin 0.4 mg sublingual 0.4 mg sublingual Q5M PRN Chest 09/16/19 08/30/24 2 Months Ago History tablet Pain ~04/28/21 levothyroxine 100 mcg capsule 100 mcg PO DIRECTED 03/09/23 08/30/24 08/29/24 History levothyroxine 88 mcg tablet 88 mcg PO DIRECTED 03/09/23 08/30/24 08/30/24 History CAM Boot #1 ea 06/13/23 08/29/24 Unknown Rx ASO brace #1 ea 07/04/23 08/29/24 Unknown Rx albuterol sulfate 90 mcg/actuation 1 inh inhalation QID PRN shortness 07/10/23 08/30/24 Unknown Rx aerosol inhaler of breath or wheezing #8.5 grams budesonide-formoterol HFA 80 1 puff inhalation DAILY PRN 07/11/23 08/30/24 Unknown History mcg-4.5 mcg/actuation aerosol Shortness Of Breath inhaler (Symbicort) gabapentin 800 mg tablet 800 mg PO QID PRN NERVE PAIN 07/11/23 08/30/24 08/29/24 History hydrocodone 7.5 mg-acetaminophen 1 tab PO Q4H PRN Pain 07/11/23 08/30/24 08/26/24 History 325 mg tablet ondansetron HCl 8 mg tablet 8 mg PO Q8H PRN Nausea 07/11/23 08/30/24 Unknown History pantoprazole 40 mg tablet,delayed 40 mg PO DAILY 07/11/23 08/30/24 08/29/24 History release lisinopril 10 mg tablet 10 mg PO BID #180 tabs 04/10/24 08/30/24 08/29/24 Rx rosuvastatin 20 mg tablet 20 mg PO QDAY 07/05/24 08/30/24 1 Month Ago History ~07/31/24 carvedilol 12.5 mg tablet 12.5 mg PO BID 08/29/24 08/30/24 08/29/24 History Allergies Allergy/AdvReac Type Severity Reaction Status Date / Time adhesive Allergy rash and Verified 08/30/24 07:32 itching promethazine Allergy nausea and Verified 08/30/24 07:32 vomiting PFSH Anesthesia Medical History (Updated 08/04/24 @ 00:00 by JANE Montano) Carpal tunnel syndrome of right wrist Chronic neck and back pain Opioid contract exists Cystitis Treat with Augmentin 875 mg twice daily for 10 days she did have a previous E. coli UTI which was treated with Bactrim unfortunately organism was resistant to Bactrim. Discussed with patient first and is to return make sure bladder is clear of infection may then need to consider urodynamics and cystoscopy to further evaluate her bladder. Meantime she will maintain a bladder diary and document her frequency urgency to be interesting to see if it is better with treatment of her cystitis. Nonischemic cardiomyopathy Congestive heart failure Morbid obesity Dyslipidemia Back Pain Encounter for long-term use of opiate analgesic Sleep apnea Anemia Seizures Laceration of both fallopian tubes FH: cholecystectomy Surgical History Status post small bowel resection History of colon resection Status post partial hysterectomy GUY with USO Dr. Husain 2004 Family History Mother Cancer Colon cancer Grandmother Cancer Breast Other CAD (coronary artery disease) Diabetes Social History Smoking and tobacco/nicotine status: never used tobacco/nicotine Second hand smoke exposure: Yes Alcohol intake: current Alcohol intake frequency: holidays/special occasions only Alcohol type: wine and other Substance/Drug Use: never Data Anesthesia Cardiac Studies: Echocardiogram 10/08/21 Echocardiogram Ultrasound 10/11/19 Sestamibi Stress Test (Cardiology) 01/13/22
[2024-08-30 07:37] VITALS: BP 135/78; PULSE 65; RESP 17; TEMP 36.6; O2SAT 97; BMI 35.0
--- NOTE | 2024-08-30 07:55 | W.PM.OPSFHP ---
Same Day Surgery H&P Indication for Procedure/HPI DATE OF PROCEDURE: August 30, 2024 CHIEF COMPLAINT/INDICATIONFOR SURGICAL PROCEDURE: Right carpal tunnel syndrome, recurrent PREOP DIAGNOSIS: Right carpal tunnel syndrome, recurrent PLANNED PROCEDURE: Operation Date: 08/30/24 09:05 Proposed Procedures p RIGHT Carpal Tunnel Release Revision(Right) - Glenn Cherry, DO Medications/Allergies* Home Medications ?Medication ?Instructions ?Recorded ?Confirmed ?Type levetiracetam 750 mg tablet 1,500 mg PO BID 02/25/19 08/30/24 History aspirin 81 mg chewable tablet 81 mg PO DAILY 04/08/19 08/30/24 History (Vicki Chewable Low Dose Aspirin) nitroglycerin 0.4 mg sublingual 0.4 mg sublingual Q5M PRN Chest 09/16/19 08/30/24 History tablet Pain levothyroxine 100 mcg capsule 100 mcg PO DIRECTED 03/09/23 08/30/24 History levothyroxine 88 mcg tablet 88 mcg PO DIRECTED 03/09/23 08/30/24 History budesonide-formoterol HFA 80 1 puff inhalation DAILY PRN 07/11/23 08/30/24 History mcg-4.5 mcg/actuation aerosol Shortness Of Breath inhaler (Symbicort) gabapentin 800 mg tablet 800 mg PO QID PRN NERVE PAIN 07/11/23 08/30/24 History hydrocodone 7.5 mg-acetaminophen 1 tab PO Q4H PRN Pain 07/11/23 08/30/24 History 325 mg tablet ondansetron HCl 8 mg tablet 8 mg PO Q8H PRN Nausea 07/11/23 08/30/24 History pantoprazole 40 mg tablet,delayed 40 mg PO DAILY 07/11/23 08/30/24 History release rosuvastatin 20 mg tablet 20 mg PO QDAY 07/05/24 08/30/24 History carvedilol 12.5 mg tablet 12.5 mg PO BID 08/29/24 08/30/24 History Allergies/Adverse Reactions Allergy/AdvReac Type Severity Reaction Status Date / Time adhesive Allergy rash and Verified 08/30/24 07:32 itching promethazine Allergy nausea and Verified 08/30/24 07:32 vomiting Pertinent History/Comorbid Conditions* Medical History (Updated 08/04/24 @ 00:00 by JANE Montano) Carpal tunnel syndrome of right wrist Chronic neck and back pain Opioid contract exists Cystitis Treat with Augmentin 875 mg twice daily for 10 days she did have a previous E. coli UTI which was treated with Bactrim unfortunately organism was resistant to Bactrim. Discussed with patient first and is to return make sure bladder is clear of infection may then need to consider urodynamics and cystoscopy to further evaluate her bladder. Meantime she will maintain a bladder diary and document her frequency urgency to be interesting to see if it is better with treatment of her cystitis. Nonischemic cardiomyopathy Congestive heart failure Morbid obesity Dyslipidemia Back Pain Encounter for long-term use of opiate analgesic Sleep apnea Anemia Seizures Laceration of both fallopian tubes FH: cholecystectomy Surgical History (Updated 04/08/19 @ 16:24 by Josh Puente DO) Status post small bowel resection History of colon resection Status post partial hysterectomy GUY with USO Dr. Husain 2003 Family History (Updated 04/08/19 @ 15:37 by Mena Morrison LPN) Diabetes CAD (coronary artery disease) Cancer Mother Colon cancer Grandmother Breast Social History Smoking and tobacco/nicotine status: never used tobacco/nicotine Second hand smoke exposure: Yes Alcohol intake: current Alcohol intake frequency: holidays/special occasions only Alcohol type: wine and other Substance/Drug Use: never Pertinent Exam Findings alert, oriented x 3, operative site marked and procedure specific exam findings Previous carpal tunnel incision of the right hand well-healed no signs of infection positive Tinel's and compression test over the right carpal tunnel in the preoperative holding area today. Please refer to detailed orthopedic examination on 07/05/2024 listed below: Right Hand exam-positive Tinel's and positive Phalen's test. She has some thenar atrophy, but no thenar muscle weakness. Full range of motion in fingers and wrist and fingers are warm and well-perfused with normal cap refill under 2 seconds. Radial pulse 2+, no intrinsic muscle weakness noted. Right Elbow exam-negative Recommendations Risks and benefits of procedure reviewed and Patient/family agree to proceed Surgery/Procedure today Other Plans: Plan to proceed to the OR today for right carpal tunnel release revision. Patient understands the ins and outs procedure the risk benefits complication alternatives of surgery and through shared decision-making patient elects proceed with surgical invention. All questions answered at this time. Coding Level of Care Code Acute Code for g Fwd
[2024-08-30] MEDS: acetaminophen 1,000 MG/100 ML PIGGYBACK 400 MG IV (07:59)
[2024-08-30] MEDS: ceFAZolin 2,000 MG in sodium chloride 0.9% (plus) 50 ML 100 MG IV (08:40)
[2024-08-30] MEDS: ROPivacaine 0.5% SDV 30 mL 30 MG INJECTION (08:49)
[2024-08-30] MEDS: lidocaine-epi 1% PF 1:200,000 30 mL SDV 5 ML INJECTION (08:49)
--- NOTE | 2024-08-30 09:18 | W.PM.BPON ---
Date of Procedure: 08/30/2024 Surgeon: Glenn Cherry DO [employer] History(s): None Procedure(s) performed: Right carpal tunnel release revision Findings of the procedure(s): Procedure went as planned without issues or complications Estimated blood loss: 3 mL Specimen(s) removed: None Post-operative diagnosis: Recurrent right carpal tunnel syndrome
--- NOTE | 2024-08-30 09:19 | P.OP_ITS ---
Operative Report Date of procedure: August 30, 2024 Surgeon: Glenn Cherry DO Procedure: Preop Diagnosis: Right Carpal Tunnel Syndrome, recurrent Post-op diagnosis: Same Procedure done: 1. Right carpal tunnel release revision Surgeon: Glenn Cherry DO Anesthesia: MAC (Local) Estimated blood loss: 3 mL Tourniquet time 8 minutes IV fluids: See anesthesia record Complications: None Findings: See operative report narrative Condition: stable Disposition: same day Brief History: Patient is a pleasant 63 year-old female with right carpal tunnel syndrome. Patient had a previous carpal tunnel release over 20 years ago. patient has been worked up in the outpatient setting findings and physical examination consistent with this. Patient nerve conduction studies consistent with once again right carpal tunnel syndrome. This appears to be recurrent in nature. We detailed out patient's risk benefits complication alternatives with surgical and nonsurgical treatment options. Through shared decision making, patient agrees to proceed with surgical intervention of the right carpal tunnel release revision. Patient understands and agrees with current plan. All questions answered. Patient elects to proceed with surgical intervention with carpal tunnel release. Procedure: Patient seen and evaluated in the preoperative holding area. Consent was reviewed and signed with patient. Correct extremity was marked. Patient was seen evaluated by the anesthesia department once cleared for surgery was brought back to the operative suite. Patient was kept on [facility] in supine position all bony prominences were well-padded patient properly secured to the bed. Right upper extremity was then placed onto an armboard. A nonsterile tourniquet was applied to the Right upper arm. Patient underwent anesthesia per the anesthesia department. Patient's Right upper extremity was then prepped and draped in standard orthopedic fashion. Final timeout performed. Patient received appropriate preoperative antibiotics. Under sterile aseptic technique patient received local anesthesia over the preplanned carpal tunnel incision site. Esmarch was used to exsanguinate the Right upper extremity and tourniquet was insufflated to 250 mmHg. A standard extended open Right carpal tunnel incision was made I made a Nory incision on the ulnar side back to the midline past the wrist crease. Starting distally at Marshall's cardinal line in line with the fourth ray extending proximally distal to the wrist crease centered over the carpal tunnel. Sharp scalpel incision was made through skin and subcutaneous tissue. Self-retaining retractor was placed and the palmar fascia was identified. This was then split longitudinally and direct visualization of the transverse carpal ligament was then made. I then utilizing scalpel feathered through the transverse carpal ligament until I entered the floor of the transverse carpal tunnel ligament into the carpal tunnel. Next I switched to dissection scissors and completed my release of the transverse carpal ligament distally with care to protect the recurrent motor branch. I completely released into the palmar fat and until no entrapment was noted distally. Care was made to protect the superficial palmar arch during my distal dissection. Next I utilized a retraction with Kasdan's by my assistant purchasing manager placed on top of the transverse carpal ligament and in the distal forearm and utilize this to retract the subcutaneous fat and tissue and under direct loupe magnification was able to identify the transverse carpal ligament. Next I then protected the contents of the carpal tunnel and subsequently utilizing dissection scissors under loupe magnification completely released the transverse carpal ligament proximally into the antebrachial fascia. Care was made to protect the palmar cutaneous branch by keeping my scissors curved ulnarly. Once completely released, I then placed my [place] and had appropriate decompression of the carpal tunnel proximally as well as distally. I then inspected the contents of the carpal tunnel which showed an hourglass shape of the median nerve showing its compression. No masses were noted. Tendons appeared healthy. Wound was then thoroughly irrigated. Tourniquet deflated. Hemostasis satisfactory with bipolar electrocautery. I then closed the incision with interrupted nylon stitches. Xeroform 4 x 4's and a bulky soft dressing and a volar splint was applied. Patient was then awakened from anesthesia and taken to PACU in stable condition. Patient tolerated procedure without complications. Disposition: Patient taken to PACU in stable condition recovering well. Dressing clean dry and intact. Patient will receive appropriate discharge instructions as well as pain medication postoperatively. Patient to follow-up with me in the office in 2 weeks. Maintain splint until follow-up they understand they may be limit heavy lifting less than 5 pounds right hand. Patient should keep incision clean dry and intact. Patient understands if any questions or concerns may contact the office.
[2024-08-30 09:23] VITALS: BP 132/65; PULSE 65; RESP 16; TEMP 36.3; O2SAT 95
[2024-08-30 09:28] VITALS: BP 136/71; PULSE 57; RESP 16; O2SAT 97
[2024-08-30 09:35] VITALS: BP 136/75; PULSE 59; RESP 16; TEMP 36.3; O2SAT 96
[2024-08-30 09:40] VITALS: BP 134/68; PULSE 52; RESP 16; TEMP 36.3; O2SAT 99
[2024-08-30 10:05] VITALS: BP 149/74; PULSE 54; RESP 17; O2SAT 96
--- NOTE | 2024-08-30 10:15 | ANE.PACU2 ---
Inpatient post-anesthesia follow up: Airway intact: Yes Vital signs: Temperature 97.3 F Pulse Rate 54 Respiratory Rate 17 Blood Pressure 149/74 Pulse Oximetry 96 Oxygen Delivery Me thod Room Air Oxygen Flow Rate Fraction of Inspir ed Oxygen Hydration adequate: Yes Nausea and vomiting: No Pain level: 1 Mental status: Baseline
== END 2024-08-30 10:15 | disposition home or self-care (01) ==
PROVIDERS: PCP Family Medicine; Visit Provider Student in an Organized Health Care Education/Training Program
PROC: (CPT 64721; principal; 2024-08-30 08:55)
DX: G56.01 Carpal tunnel syndrome, right upper limb (principal); I11.0 Hypertensive heart disease with heart failure; I50.9 Heart failure, unspecified; E66.01 Morbid (severe) obesity due to excess calories; Z68.35 Body mass index [BMI] 35.0-35.9, adult; E78.5 Hyperlipidemia, unspecified; D64.9 Anemia, unspecified; R56.9 Unspecified convulsions; K21.9 Gastro-esophageal reflux disease without esophagitis; G47.33 Obstructive sleep apnea (adult) (pediatric); F43.10 Post-traumatic stress disorder, unspecified; F32.A Depression, unspecified; E03.9 Hypothyroidism, unspecified; Z79.82 Long term (current) use of aspirin
CPT/HCPCS: 64721; J0131; J0690; J1100; J1885; J2405; J2795; J3010; J7030; J9999

== ENCOUNTER → 2024-09-18 14:33 | Outpatient (BNVA) | payer MEDICARE, MEDICAID, SELFPAY | PROVIDERS: PCP Family Medicine; Visit Provider Physician Assistant | DX: Z98.890 Other specified postprocedural states (principal) | CPT/HCPCS: 99024 ==

== ENCOUNTER 2024-10-07 05:00 | Outpatient (RCR) | payer MEDICARE, MEDICAID, SELFPAY | END 2024-11-05 23:59 | disposition home or self-care (01) | LOC: SOT 05:00 | PROVIDERS: Visit Provider Physician Assistant | DX: G56.01 Carpal tunnel syndrome, right upper limb (principal) | CPT/HCPCS: 97022; 97110; 97165 ==

== ENCOUNTER → 2024-10-30 13:33 | Outpatient (BNVA) | payer MEDICARE, MEDICAID, SELFPAY | PROVIDERS: Visit Provider Physician Assistant | DX: Z98.890 Other specified postprocedural states (principal) | CPT/HCPCS: 99024 ==

== ENCOUNTER → 2025-01-08 09:36 | Outpatient (BNVA) | payer MEDICARE, MEDICAID, SELFPAY | PROVIDERS: Visit Provider Internal Medicine | DX: J98.4 Other disorders of lung (principal); R91.1 Solitary pulmonary nodule; G47.33 Obstructive sleep apnea (adult) (pediatric); J44.9 Chronic obstructive pulmonary disease, unspecified | CPT/HCPCS: 99214; Q3014 ==